=== PATIENT | male | born 1955 | race Caucasian/White ===

== ENCOUNTER 2017-04-16 18:09 | Inpatient (IN) | payer BC ==
[2017-04-16] MEDS ORDERED: Sodium Chloride 0.9% 10 ML Syringe FLUSH PRN (18:52)
[2017-04-16] MEDS: HYDROmorphone 1 MG/ML Syringe IVPUSH PRN (19:02)
[2017-04-16] MEDS: Sodium Chloride 0.9% 1,000 ML IV SCH (19:05)
--- NOTE | 2017-04-16 19:08 | EDM.PDOC ---
ED HPI GENERAL MEDICAL PROBLEM - General Chief Complaint: Abdominal Pain Stated Complaint: abdominal pain Time Seen by Provider: 04/16/17 18:30 Source of Information: Reports: Patient History Limitations: Reports: No Limitations - History of Present Illness INITIAL COMMENTS - FREE TEXT/NARRATIVE: Patient is a 61-year-old gentleman who presented to the emergency room with abdominal pain he states is about an 8 out of 10 at this time but has been complaining of abdominal pain for the last couple weeks he did go the physician on the a CAT scan was done CT of the abdomen revealed hiatal hernia seen sigmoid diverticulosis without CT evidence of inflammation or diverticulitis prostatomegaly 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 Onset: Gradual Duration: Week(s): Location: Reports: Abdomen Abdomen Pain Score (Numeric/FACES): 10 Headache Pain Score (Numeric/FACES): 2 - Related Data Allergies Allergy/AdvReac Type Severity Reaction Status Date / Time ezetimibe [From Vytorin] Allergy Muscle Verified 04/16/17 22:50 Aches simvastatin [From Vytorin] Allergy Muscle Verified 04/16/17 22:50 Aches Tetanus Vaccines and Toxoid Allergy Hives Verified 04/16/17 22:50 [Tetanus Vaccines & Toxoid] fish Allergy Intermediate Airway Uncoded 04/16/17 22:50 Tightness Home Meds: Home Meds Albuterol Sulfate [Albuterol Sulfate HFA] 8.5 gm IH Q4H PRN 07/13/14 [History] Metoprolol Succinate [Toprol Xl] 50 mg PO DAILY 07/13/14 [History] Omeprazole 20 mg PO BID 07/13/14 [History] Rizatriptan [Maxalt] 10 mg PO DAILY PRN 07/13/14 [History] Simvastatin 10 mg PO DAILY 07/13/14 [History] Valsartan [Diovan] 160 mg PO BEDTIME 07/13/14 [History] Fluticasone Propionate [Flovent] 100 mcg IH BID PRN 05/28/15 [History] Hydrocortisone Acetate [Anusol-Hc] 25 mg RECTAL ASDIRECTED PRN 05/28/15 [History ] Apixaban [Eliquis] 5 mg PO BID 04/16/17 [History] Cyanocobalamin (Vitamin B-12) [B-12] 1,000 mcg PO DAILY 04/16/17 [History] Latanoprost [Xalatan 0.005% Ophth Soln] 1 drop EYEBOTH BEDTIME 04/16/17 [History ] Hydrochlorothiazide 25 mg PO DAILY 04/17/17 [History] Moexipril [Univasc] 15 mg PO DAILY 04/17/17 [History] Ciprofloxacin HCl [Cipro] 500 mg PO BID #14 tablet 04/19/17 [Rx] Ondansetron [Zofran ODT] 4 mg PO Q6H PRN #20 tab.dis 04/19/17 [Rx] metroNIDAZOLE [Flagyl] 500 mg PO Q8H #21 tablet 04/19/17 [Rx] Past Medical History Cardiovascular History: Reports: Hypertension Respiratory History: Reports: Asthma Neurological History: Reports: Migraines Oncologic (Cancer) History: Reports: Other (See Below) Other Oncologic History: multiple myeloma3 - Infectious Disease History Infectious Disease History: Reports: Measles, Mumps, Shingles - Past Surgical History Cardiovascular Surgical History: Reports: Cardiac Ablation Other Cardiovascular Surgeries/Procedures: ablation in 2016 Oncologic Surgical History: Reports: None Social & Family History - Tobacco Use Smoking Status *Q: Never Smoker - Caffeine Use Caffeine Use: Reports: Coffee, Soda - Alcohol Use Days Per Week of Alcohol Use: 0 - Recreational Drug Use Recreational Drug Use: No ED ROS GENERAL - Review of Systems Review Of Systems: See Below Constitutional: Reports: No Symptoms HEENT: Reports: No Symptoms Respiratory: Reports: No Symptoms Cardiovascular: Reports: No Symptoms Endocrine: Reports: No Symptoms GI/Abdominal: Reports: Abdominal Pain, Nausea : Reports: No Symptoms Musculoskeletal: Reports: No Symptoms Skin: Reports: No Symptoms Neurological: Reports: No Symptoms Psychiatric: Reports: No Symptoms ED EXAM, GI/ABD - Physical Exam Exam: See Below Exam Limited By: No Limitations General Appearance: Alert, WD/WN, No Apparent Distress Eyes: Bilateral: Normal Appearance, EOMI Ears: Normal External Exam, Normal Canal, Hearing Grossly Normal, Normal TMs Nose: Normal Inspection, Normal Mucosa, No Blood Throat/Mouth: Normal Inspection, Normal Lips, Normal Teeth, Normal Gums, Normal Oropharynx, Normal Voice, No Airway Compromise Head: Atraumatic, Normocephalic Neck: Normal Inspection, Supple, Non-Tender, Full Range of Motion Respiratory/Chest: No Respiratory Distress, Lungs Clear, Normal Breath Sounds, No Accessory Muscle Use, Chest Non-Tender Cardiovascular: Normal Peripheral Pulses, Regular Rate, Rhythm, No Edema, No Gallop, No JVD, No Murmur, No Rub GI/Abdominal Exam: Normal Bowel Sounds, Soft, Tender (left lower quadrant; nausea) (Male) Exam: Deferred Rectal (Males) Exam: Deferred Back Exam: Normal Inspection Extremities: Normal Inspection Neurological: Alert, Oriented, CN II-XII Intact, Normal Cognition, Normal Gait, Normal Reflexes, No Motor/Sensory Deficits Skin Exam: Warm, Dry, Intact, Normal Color, No Rash Course - Vital Signs Last Recorded V/S: Last Vital Signs Temp 98.2 F 04/19/17 08:00 Pulse 60 04/19/17 08:00 Resp 16 04/19/17 08:00 BP 118/57 L 04/19/17 08:00 Pulse Ox 94 L 04/19/17 04:00 - Orders/Labs/Meds Orders: Medication Orders Acetaminophen (Tylenol) 650 mg PO Q3HR PRN PRN Reason: headache/fever Last Admin: 04/19/17 05:35 Dose: 650 mg Admin: 04/18/17 09:30 Dose: 650 mg Albuterol (Ventolin Hfa) 0 gm INH Q4H PRN PRN Reason: Shortness of Breath Cyanocobalamin (Vitamin B12) 1,000 mcg PO DAILY [facility] Last Admin: 04/19/17 07:52 Dose: 1,000 mcg Admin: 04/18/17 09:07 Dose: 1,000 mcg Admin: 04/17/17 07:28 Dose: 1,000 mcg Hydrochlorothiazide (Hydrochlorothiazide) 25 mg PO DAILY [facility] Last Admin: 04/19/17 07:52 Dose: 25 mg Admin: 04/18/17 09:03 Dose: 25 mg Admin: 04/17/17 09:21 Dose: Hydromorphone HCl (Dilaudid) 1 mg IVPUSH Q1H PRN PRN Reason: Abdominal Pain Last Admin: 04/19/17 01:00 Dose: 1 mg Admin: 04/18/17 22:15 Dose: 1 mg Admin: 04/18/17 04:35 Dose: 1 mg Admin: 04/17/17 18:39 Dose: 1 mg Admin: 04/17/17 04:42 Dose: 1 mg Admin: 04/16/17 19:02 Dose: 1 mg Sodium Chloride (Normal Saline) 1,000 mls @ 150 mls/hr IV ASDIRECTED [facility] Last Admin: 04/19/17 05:35 Dose: 150 mls/hr Infusion: 04/19/17 05:35 Dose: 150 mls/hr Admin: 04/18/17 23:36 Dose: 150 mls/hr Infusion: 04/18/17 22:58 Dose: 150 mls/hr Admin: 04/18/17 16:17 Dose: 150 mls/hr Infusion: 04/18/17 13:53 Dose: 150 mls/hr Admin: 04/18/17 07:12 Dose: 150 mls/hr Infusion: 04/18/17 05:31 Dose: 150 mls/hr Admin: 04/17/17 22:50 Dose: 150 mls/hr Infusion: 04/17/17 21:13 Dose: 150 mls/hr Admin: 04/17/17 14:32 Dose: 150 mls/hr Infusion: 04/17/17 11:19 Dose: 150 mls/hr Admin: 04/17/17 04:38 Dose: 150 mls/hr Infusion: 04/17/17 01:46 Dose: 150 mls/hr Admin: 04/16/17 19:05 Dose: 150 mls/hr Metronidazole 500 mg/ Premix 100 mls @ 100 mls/hr IV Q8H [facility] Last Admin: 04/19/17 05:36 Dose: 100 mls/hr Infusion: 04/18/17 22:15 Dose: 100 mls/hr Admin: 04/18/17 21:15 Dose: 100 mls/hr Infusion: 04/18/17 14:16 Dose: 100 mls/hr Admin: 04/18/17 13:16 Dose: 100 mls/hr Infusion: 04/18/17 05:32 Dose: 100 mls/hr Admin: 04/18/17 04:32 Dose: 100 mls/hr Infusion: 04/17/17 21:27 Dose: 100 mls/hr Admin: 04/17/17 20:27 Dose: 100 mls/hr Infusion: 04/17/17 13:46 Dose: 100 mls/hr Admin: 04/17/17 12:46 Dose: 100 mls/hr Infusion: 04/17/17 05:37 Dose: 100 mls/hr Admin: 04/17/17 04:37 Dose: 100 mls/hr Infusion: 04/16/17 22:58 Dose: 100 mls/hr Admin: 04/16/17 21:58 Dose: 100 mls/hr Ciprofloxacin/Dextrose 400 mg/ (Premix) 200 mls @ 200 mls/hr IV Q12HR [facility] Last Admin: 04/19/17 07:53 Dose: 200 mls/hr Infusion: 04/18/17 21:00 Dose: 200 mls/hr Admin: 04/18/17 20:00 Dose: 200 mls/hr Infusion: 04/18/17 10:08 Dose: 200 mls/hr Admin: 04/18/17 09:08 Dose: 200 mls/hr Infusion: 04/17/17 21:27 Dose: 200 mls/hr Admin: 04/17/17 20:27 Dose: 200 mls/hr Infusion: 04/17/17 08:28 Dose: 200 mls/hr Admin: 04/17/17 07:28 Dose: 200 mls/hr Infusion: 04/17/17 00:50 Dose: 200 mls/hr Admin: 04/16/17 23:50 Dose: 200 mls/hr Metoprolol Succinate (Toprol Xl) 50 mg PO DAILY [facility] Last Admin: 04/19/17 07:52 Dose: 50 mg Admin: 04/18/17 09:05 Dose: 50 mg Admin: 04/17/17 09:21 Dose: Moexipril HCl (Univasc) 15 mg PO DAILY [facility] Last Admin: 04/19/17 07:52 Dose: 15 mg Admin: 04/18/17 09:06 Dose: 15 mg Admin: 04/17/17 09:21 Dose: Mometasone Furoate (Asmanex 220 Mcg) 1 puff INH DAILY PRN PRN Reason: BREATHING Omeprazole (Omeprazole) 20 mg PO BID [facility] Last Admin: 04/19/17 07:52 Dose: 20 mg Admin: 04/18/17 17:55 Dose: 20 mg Admin: 04/18/17 09:04 Dose: 20 mg Admin: 04/17/17 17:19 Dose: 20 mg Ondansetron HCl (Zofran) 4 mg IVPUSH Q6H PRN PRN Reason: Nausea Last Admin: 04/19/17 07:53 Dose: 4 mg Simvastatin (Zocor) 10 mg PO BEDTIME [facility] Last Admin: 04/18/17 20:00 Dose: 10 mg Admin: 04/17/17 20:28 Dose: 10 mg Sodium Chloride (Saline Flush) 10 ml FLUSH ASDIRECTED PRN PRN Reason: Keep Vein Open Last Admin: 04/18/17 04:38 Dose: 10 ml Valsartan (Diovan) 160 mg PO BEDTIME [facility] Last Admin: 04/18/17 21:00 Dose: 160 mg Admin: 04/17/17 20:50 Dose: Not Given Labs: Laboratory Tests 04/16/17 04/16/17 Range/Units 19:20 19:20 WBC 15.1 H (4.0-10.2) K/uL RBC 4.54 (4.33-5.41) M/uL Hgb 14.0 D (13.1-16.8) g/dL Hct 40.7 (39.0-49.0) % MCV 89.6 (84.0-98.0) fL MCH 30.8 (28.2-33.3) pg MCHC 34.4 (31.7-36.0) g/dL RDW 13.2 (11.2-14.1) % Plt Count 227 (150-350) K/uL Neut % (Auto) 64.4 (45.0-80.0) % Lymph % (Auto) 26.8 (10.0-50.0) % [place] % (Auto) 7.5 (2.0-14.0) % Eos % (Auto) 1.0 (0.0-5.0) % Baso % (Auto) 0.3 (0.0-2.0) % Neut # (Auto) 9.75 H (1.40-7.00) K/uL Lymph # (Auto) 4.06 H (0.50-3.50) K/uL [place] # (Auto) 1.13 H (0.00-1.00) K/uL Eos # (Auto) 0.15 (0.00-0.50) K/uL Baso # (Auto) 0.05 (0.00-0.20) K/uL Sodium 132 L (136-145) mmol/L Potassium 4.2 (3.5-5.1) mmol/L Chloride 97 L (98-107) mmol/L Carbon Dioxide 25.0 (21.0-32.0) mmol/L BUN 31 H (7-18) mg/dL Creatinine 2.09 H (0.51-1.17) mg/dL Est Cr Clr Drug Dosing 36.18 mL/min Estimated GFR (MDRD) 32 mL/min Glucose 90 (74-106) mg/dL Calcium 8.6 (8.5-10.1) mg/dL Meds: Medications Generic Name Dose Route Start Last Admin Trade Name Freq PRN Reason Stop Dose Admin Acetaminophen 650 mg 04/18/17 09:19 04/19/17 05:35 Tylenol PO 650 mg Q3HR PRN Administration headache/fever Albuterol 0 gm 04/17/17 09:32 Ventolin Hfa INH Q4H PRN Shortness of Breath Cyanocobalamin 1,000 mcg 04/17/17 08:00 04/19/17 07:52 Vitamin B12 PO 1,000 mcg DAILY [facility] Administration Hydrochlorothiazide 25 mg 04/17/17 08:00 04/19/17 07:52 Hydrochlorothiazide PO 25 mg DAILY [facility] Administration Hydromorphone HCl 1 mg 04/16/17 18:54 04/19/17 01:00 Dilaudid IVPUSH 1 mg Q1H PRN Administration Abdominal Pain Sodium Chloride 1,000 mls @ 150 mls/hr 04/16/17 19:00 04/19/17 05:35 Normal Saline IV 150 mls/hr ASDIRECTED [facility] Administration Metronidazole 500 mg/ Premix 100 mls @ 100 mls/hr 04/16/17 21:15 04/19/17 05: 36 IV 100 mls/hr Q8H [facility] Administration Ciprofloxacin/Dextrose 400 mg/ 200 mls @ 200 mls/hr 04/16/17 23:30 04/19/17 07:53 Premix IV 200 mls/hr Q12HR [facility] Administration Metoprolol Succinate 50 mg 04/17/17 08:00 04/19/17 07:52 Toprol Xl PO 50 mg DAILY [facility] Administration Moexipril HCl 15 mg 04/17/17 08:00 04/19/17 07:52 Univasc PO 15 mg DAILY [facility] Administration Mometasone Furoate 1 puff 04/16/17 23:23 Asmanex 220 Mcg INH DAILY PRN BREATHING Omeprazole 20 mg 04/17/17 18:00 04/19/17 07:52 Omeprazole PO 20 mg BID [facility] Administration Ondansetron HCl 4 mg 04/19/17 07:38 04/19/17 07:53 Zofran IVPUSH 4 mg Q6H PRN Administration Nausea Simvastatin 10 mg 04/17/17 20:00 04/18/17 20:00 Zocor PO 10 mg BEDTIME [facility] Administration Sodium Chloride 10 ml 04/16/17 18:52 04/18/17 04:38 Saline Flush FLUSH 10 ml ASDIRECTED PRN Administration Keep Vein Open Valsartan 160 mg 04/17/17 20:00 04/18/17 21:00 Diovan PO 160 mg BEDTIME [facility] Administration Discontinued Medications Generic Name Dose Route Start Last Admin Trade Name Freq PRN Reason Stop Dose Admin Apixaban 5 mg 04/17/17 08:00 04/18/17 17:54 Eliquis PO Not Given BID [facility] Hydrocortisone Acetate 25 mg 04/16/17 21:52 Anucort-Hc RECTAL ASDIRECTED PRN Hemorrhoids Ciprofloxacin/Dextrose 400 mg/ 200 mls @ 200 mls/hr 04/17/17 08:00 Premix IV Q12HR [facility] Non-Formulary Medication 8.5 gm 04/16/17 21:52 Albuterol Sulfate [Albuterol Sulfate Hfa] IH Q4H PRN Shortness of Breath Non-Formulary Medication 100 mcg 04/16/17 21:52 Fluticasone Propionate [Flovent] IH BID PRN asthma Non-Formulary Medication 25 mg 04/17/17 08:00 Hydrochlorothiazide/Moexipril [Uniretic 15-12.5] PO DAILY [facility] Non-Formulary Medication 0.5 tab 04/17/17 08:00 Metoprolol Succinate [Toprol Xl] PO DAILY [facility] Non-Formulary Medication 10 mg 04/16/17 21:52 Rizatriptan [Maxalt] PO DAILY PRN Migraine Omeprazole 20 mg 04/17/17 07:30 04/17/17 07:28 Omeprazole PO 20 mg ACBRK [facility] Administration Departure - Departure Time of Disposition: 20:15 Disposition: Admitted As Inpatient 64 Clinical Impression: Abdominal pain Qualifiers: Abdominal location: left lower quadrant Qualified Code(s): R10.32 - Left lower quadrant pain Diverticulitis large intestine Qualifiers: Diverticulitis bleeding: without bleeding Diverticulitis complication: without perforation or abscess Qualified Code(s): K57.32 - Diverticulitis of large intestine without perforation or abscess without bleeding - Discharge Information - Problem List & Annotations (1) Abdominal pain SNOMED Code(s): 89336260 Code(s): R10.9 - UNSPECIFIED ABDOMINAL PAIN Status: Acute Current Visit: Yes Qualifiers: Abdominal location: left lower quadrant Qualified Code(s): R10.32 - Left lower quadrant pain (2) Colitis, infectious SNOMED Code(s): 88189190 Code(s): A09 - INFECTIOUS GASTROENTERITIS AND COLITIS, UNSPECIFIED Status: Acute Priority: High Current Visit: Yes Onset Date: ~04/07/17 - Problem List Review Problem List Initiated/Reviewed/Updated: Yes - Assessment/Plan Admission H&P: Please use this note as an admission H&P
[2017-04-16] MEDS ORDERED: FLUTICASONE PROPIONATE 100 MCG IH PRN (21:52)
[2017-04-16] MEDS ORDERED: ALBUTEROL SULFATE IH PRN (21:52)
[2017-04-16] MEDS ORDERED: Hydrocortisone Acetate 25 MG Supp RECTAL PRN (21:52)
[2017-04-16] MEDS ORDERED: RIZATRIPTAN 10 MG PO PRN (21:52)
[2017-04-16] MEDS: metroNIDAZOLE/Normal Saline 500 MG in Premix Bag 1 BAG IV SCH (21:58)
[2017-04-16] MEDS ORDERED: Mometasone Furoate Powder 220 MCG/Puff 14 Dose Inhaler INH PRN (23:23)
[2017-04-16] MEDS: Ciprofloxacin in D5W 400 MG in Premix Bag 1 BAG IV SCH ×2 (23:50)
[2017-04-17] MEDS: metroNIDAZOLE/Normal Saline 500 MG in Premix Bag 1 BAG IV SCH ×3 (04:37→20:27)
[2017-04-17] MEDS: Sodium Chloride 0.9% 1,000 ML IV SCH ×3 (04:38→22:50)
[2017-04-17] MEDS: HYDROmorphone 1 MG/ML Syringe IVPUSH PRN ×2 (04:42→18:39)
[2017-04-17] MEDS: Apixaban 5 MG Tab PO SCH ×2 (07:28→17:19)
[2017-04-17] MEDS: Ciprofloxacin in D5W 400 MG in Premix Bag 1 BAG IV SCH ×4 (07:28→20:27)
[2017-04-17] MEDS: Cyanocobalamin (Vitamin B12) 1,000 MCG Tab PO SCH (07:28)
[2017-04-17] MEDS ORDERED: Omeprazole 20 MG Cap.CR PO SCH (07:30)
[2017-04-17] MEDS ORDERED: MOEXIPRIL PO SCH (08:00)
[2017-04-17] MEDS ORDERED: Ciprofloxacin in D5W 400 MG in Premix Bag 1 BAG IV SCH ×2 (08:00)
[2017-04-17] MEDS ORDERED: HYDROCHLOROTHIAZIDE PO SCH (08:00)
[2017-04-17] MEDS ORDERED: METOPROLOL SUCCINATE PO SCH (08:00)
[2017-04-17] MEDS ORDERED: [UNRECOGNIZED DRUG - OTHER] PO SCH (08:00)
--- NOTE | 2017-04-17 09:10 | PCM.PN ---
- General Info Date of Service: 04/17/17 Admission Dx/Problem (Free Text): diverticulitis Functional Status: Reports: pain controlled - Review of Systems General: Reports: No Symptoms HEENT: Reports: no symptoms Pulmonary: Reports: no symptoms Cardiovascular: Reports: No Symptoms Gastrointestinal: Reports: Abdominal pain Genitourinary: Reports: no symptoms Musculoskeletal: Reports: no symptoms Skin: Reports: no symptoms Neurological: Reports: No Symptoms Psychiatric: Reports: no symptoms - Patient Data Vitals - most recent: Last Vital Signs Temp 97.3 F 04/17/17 07:50 Pulse 61 04/17/17 07:50 Resp 20 04/17/17 07:50 BP 102/53 L 04/17/17 07:50 Pulse Ox 98 04/17/17 07:50 Weight - most recent: 197 lb 14.4 oz I&O - last 24 hours: Intake & Output 04/16/17 04/17/17 04/17/17 22:59 06:59 14:59 Intake Total 1000 785 Output Total 350 Balance 1000 435 Lab Results last 24 hrs: Laboratory Results - last 24 hr 04/17/17 04/17/17 Range/Units 06:35 06:35 WBC 9.7 (4.0-10.2) K/uL RBC 4.04 L (4.33-5.41) M/uL Hgb 12.7 L (13.1-16.8) g/dL Hct 36.5 L (39.0-49.0) % MCV 90.3 (84.0-98.0) fL MCH 31.4 (28.2-33.3) pg MCHC 34.8 (31.7-36.0) g/dL RDW 13.1 (11.2-14.1) % Plt Count 221 (150-350) K/uL Neut % (Auto) 58.6 (45.0-80.0) % Lymph % (Auto) 30.6 (10.0-50.0) % [place] % (Auto) 7.0 (2.0-14.0) % Eos % (Auto) 3.2 (0.0-5.0) % Baso % (Auto) 0.6 (0.0-2.0) % Neut # (Auto) 5.67 (1.40-7.00) K/uL Lymph # (Auto) 2.96 (0.50-3.50) K/uL [place] # (Auto) 0.68 (0.00-1.00) K/uL Eos # (Auto) 0.31 (0.00-0.50) K/uL Baso # (Auto) 0.06 (0.00-0.20) K/uL Sodium 135 L (136-145) mmol/L Potassium 4.2 (3.5-5.1) mmol/L Chloride 102 (98-107) mmol/L Carbon Dioxide 25.5 (21.0-32.0) mmol/L BUN 30 H (7-18) mg/dL Creatinine 1.54 H (0.51-1.17) mg/dL Est Cr Clr Drug Dosing 49.10 mL/min Estimated GFR (MDRD) 46 mL/min Glucose 82 (74-106) mg/dL Calcium 8.1 L (8.5-10.1) mg/dL Med Orders - Current: Current Medications Apixaban (Eliquis) 5 mg PO BID [facility] Last Admin: 04/17/17 07:28 Dose: 5 mg Cyanocobalamin (Vitamin B12) 1,000 mcg PO DAILY [facility] Last Admin: 04/17/17 07:28 Dose: 1,000 mcg Hydrochlorothiazide (Hydrochlorothiazide) 25 mg PO DAILY [facility] Hydrocortisone Acetate (Anucort-Hc) 25 mg RECTAL ASDIRECTED PRN PRN Reason: Hemorrhoids Hydromorphone HCl (Dilaudid) 1 mg IVPUSH Q1H PRN PRN Reason: Abdominal Pain Last Admin: 04/17/17 04:42 Dose: 1 mg Sodium Chloride (Normal Saline) 1,000 mls @ 150 mls/hr IV ASDIRECTED [facility] Last Admin: 04/17/17 04:38 Dose: 150 mls/hr Metronidazole 500 mg/ Premix 100 mls @ 100 mls/hr IV Q8H [facility] Last Admin: 04/17/17 04:37 Dose: 100 mls/hr Ciprofloxacin/Dextrose 400 mg/ (Premix) 200 mls @ 200 mls/hr IV Q12HR [facility] Last Admin: 04/17/17 07:28 Dose: 200 mls/hr Metoprolol Succinate (Toprol Xl) 50 mg PO DAILY [facility] Moexipril HCl (Univasc) 15 mg PO DAILY [facility] Mometasone Furoate (Asmanex 220 Mcg) 1 puff INH DAILY PRN PRN Reason: BREATHING Non-Formulary Medication (Albuterol Sulfate [Albuterol Sulfate Hfa]) 8.5 gm IH Q4H PRN PRN Reason: Shortness of Breath Non-Formulary Medication (Rizatriptan [Maxalt]) 10 mg PO DAILY PRN PRN Reason: Migraine Omeprazole (Omeprazole) 20 mg PO ACBRK [facility] Last Admin: 04/17/17 07:28 Dose: 20 mg Simvastatin (Zocor) 10 mg PO BEDTIME [facility] Sodium Chloride (Saline Flush) 10 ml FLUSH ASDIRECTED PRN PRN Reason: Keep Vein Open Valsartan (Diovan) 160 mg PO BEDTIME [facility] Discontinued Medications Ciprofloxacin/Dextrose 400 mg/ (Premix) 200 mls @ 200 mls/hr IV Q12HR [facility] Non-Formulary Medication (Fluticasone Propionate [Flovent]) 100 mcg IH BID PRN PRN Reason: asthma Non-Formulary Medication (Hydrochlorothiazide/Moexipril [Uniretic 15-12.5]) 25 mg PO DAILY [facility] Non-Formulary Medication (Metoprolol Succinate [Toprol Xl]) 0.5 tab PO DAILY [facility] - Exam General: alert, oriented HEENT: Pupils equal, Pupils reactive, EOMI, Mucous membr. moist/pink Neck: supple Lungs: Clear to auscultation, Normal respiratory effort Cardiovascular: Regular Rate, Regular Rhythm Abdomen: soft, tenderness, abnormal bowel sounds (Male) Exam: No Hernia, Normal Inspection, Normal Prostate, Circumcised Back Exam: Normal Inspection, Full Range of Motion Extremities: no edema Skin: warm, dry, intact Wound/Incisions: healing well Neurological: no new focal deficit Psy/Mental Status: alert, normal affect, normal mood - Problem List & Annotations (1) Diverticulitis large intestine SNOMED Code(s): 6203387 Code(s): K57.32 - DVTRCLI OF LG INT W/O PERFORATION OR ABSCESS W/O BLEEDING Status: Acute Current Visit: Yes - Problem List Review Problem List Initiated/Reviewed/Updated: Yes - My Orders Last 24 Hours: My Active Orders 04/16/17 21:00 Patient Status [ADT] Routine Vital Signs [RC] Q4HR DVT/VTE Prophylaxis Reflex [OM.PC] Routine 04/16/17 21:06 Pulse Oximetry [RC] PRN 04/16/17 21:09 Antiembolic Devices [RC] 08,20 VTE/DVT Education [RC] PER UNIT ROUTINE 04/16/17 21:15 metroNIDAZOLE/Normal Saline [Flagyl 500 MG in NS 100 ML] 500 mg Premix Bag 1 bag IV Q8H 04/16/17 21:52 Albuterol Sulfate [Albuterol Sulfate HFA] 8.5 gm IH Q4H PRN Hydrocortisone Acetate [Anucort-HC] 25 mg RECTAL ASDIRECTED PRN Rizatriptan [Maxalt] 10 mg PO DAILY PRN 04/16/17 23:23 Mometasone Furoate [Asmanex 220 MCG] 1 puff INH DAILY PRN 04/16/17 23:30 Ciprofloxacin in D5W [Cipro in D5W 400 MG/200 ML] 400 mg Premix Bag 1 bag IV Q12HR 04/16/17 Dinner Full Liquid Diet [DIET] 04/17/17 07:30 Omeprazole 20 mg PO ACBRK 04/17/17 08:00 Apixaban [Eliquis] 5 mg PO BID Cyanocobalamin (Vitamin B12) [Vitamin B12] 1,000 mcg PO DAILY Hydrochlorothiazide 25 mg PO DAILY Metoprolol Succinate [Toprol XL] 50 mg PO DAILY Moexipril [Univasc] 15 mg PO DAILY 04/17/17 20:00 Simvastatin [Zocor] 10 mg PO BEDTIME Valsartan [Diovan] 160 mg PO BEDTIME - Assessment Assessment:: dehydration acute renal insufficency - Plan Plan:: continue with antibiotic treatment as odered.
[2017-04-17] MEDS: Hydrochlorothiazide 25 MG Tab PO SCH (09:21)
[2017-04-17] MEDS: Metoprolol Succinate 50 MG Tab.ER PO SCH (09:21)
[2017-04-17] MEDS: Moexipril 7.5 MG Tab PO SCH (09:21)
[2017-04-17] MEDS ORDERED: Albuterol 8 GM Inhaler INH PRN (09:32)
[2017-04-17] MEDS: Omeprazole 20 MG Cap.CR PO SCH (17:19)
[2017-04-17] MEDS: Simvastatin 10 MG Tab PO SCH (20:28)
[2017-04-18] MEDS: metroNIDAZOLE/Normal Saline 500 MG in Premix Bag 1 BAG IV SCH ×3 (04:32→21:15)
[2017-04-18] MEDS: HYDROmorphone 1 MG/ML Syringe IVPUSH PRN ×2 (04:35→22:15)
[2017-04-18] MEDS: Sodium Chloride 0.9% 1,000 ML IV SCH ×3 (07:12→23:36)
[2017-04-18] MEDS: Apixaban 5 MG Tab PO SCH ×2 (09:02→17:54)
[2017-04-18] MEDS: Hydrochlorothiazide 25 MG Tab PO SCH (09:03)
[2017-04-18] MEDS: Omeprazole 20 MG Cap.CR PO SCH ×2 (09:04→17:55)
[2017-04-18] MEDS: Metoprolol Succinate 50 MG Tab.ER PO SCH (09:05)
[2017-04-18] MEDS: Moexipril 7.5 MG Tab PO SCH (09:06)
[2017-04-18] MEDS: Cyanocobalamin (Vitamin B12) 1,000 MCG Tab PO SCH (09:07)
[2017-04-18] MEDS: Ciprofloxacin in D5W 400 MG in Premix Bag 1 BAG IV SCH ×4 (09:08→20:00)
[2017-04-18] MEDS: Acetaminophen 325 MG Tab PO PRN (09:30)
[2017-04-18] MEDS: Simvastatin 10 MG Tab PO SCH (20:00)
[2017-04-19] MEDS: HYDROmorphone 1 MG/ML Syringe IVPUSH PRN (01:00)
[2017-04-19] MEDS: Acetaminophen 325 MG Tab PO PRN (05:35)
[2017-04-19] MEDS: Sodium Chloride 0.9% 1,000 ML IV SCH (05:35)
[2017-04-19] MEDS: metroNIDAZOLE/Normal Saline 500 MG in Premix Bag 1 BAG IV SCH (05:36)
[2017-04-19] MEDS ORDERED: Ondansetron 4 MG/2 ML SDV IVPUSH PRN (07:38)
[2017-04-19] MEDS: Hydrochlorothiazide 25 MG Tab PO SCH (07:52)
[2017-04-19] MEDS: Metoprolol Succinate 50 MG Tab.ER PO SCH (07:52)
[2017-04-19] MEDS: Cyanocobalamin (Vitamin B12) 1,000 MCG Tab PO SCH (07:52)
[2017-04-19] MEDS: Omeprazole 20 MG Cap.CR PO SCH (07:52)
[2017-04-19] MEDS: Moexipril 7.5 MG Tab PO SCH (07:52)
[2017-04-19] MEDS: Ciprofloxacin in D5W 400 MG in Premix Bag 1 BAG IV SCH ×2 (07:53)
[2017-04-19 07:54] VITALS: BP 118/57
[2017-04-19 08:04] LABS: CHLORIDE,CL 107 mmol/L (98-107); SODIUM,NA 139 mmol/L (136-145)
--- NOTE | 2017-04-19 09:45 | PCM.DCSUM1 ---
Discharge Summary - Discharge Data Discharge Disposition: Home, Self-Care 01 Condition: Good - Discharge Diagnosis/Problem(s) (1) Diverticulitis large intestine SNOMED Code(s): 3530882 ICD Code: K57.32 - DVTRCLI OF LG INT W/O PERFORATION OR ABSCESS W/O BLEEDING Status: Acute Current Visit: Yes - Discharge Plan Home Medications: Home Meds Albuterol Sulfate [Albuterol Sulfate HFA] 8.5 gm IH Q4H PRN 07/13/14 [History] Metoprolol Succinate [Toprol Xl] 50 mg PO DAILY 07/13/14 [History] Omeprazole [Omeprazole] 20 mg PO BID 07/13/14 [History] Rizatriptan [Maxalt] 10 mg PO DAILY PRN 07/13/14 [History] Simvastatin [Simvastatin] 10 mg PO DAILY 07/13/14 [History] Valsartan [Diovan] 160 mg PO BEDTIME 07/13/14 [History] Fluticasone Propionate [Flovent Diskus] 100 mcg IH BID PRN 05/28/15 [History] Hydrocortisone Acetate [Anusol-Hc] 25 mg RECTAL ASDIRECTED PRN 05/28/15 [History ] Apixaban [Eliquis] 5 mg PO BID 04/16/17 [History] Cyanocobalamin (Vitamin B-12) [B-12] 1,000 mcg PO DAILY 04/16/17 [History] Latanoprost [Xalatan 0.005% Ophth Soln] 1 drop EYEBOTH BEDTIME 04/16/17 [History ] Hydrochlorothiazide 25 mg PO DAILY 04/17/17 [History] Moexipril [Univasc] 15 mg PO DAILY 04/17/17 [History] Patient Handouts: Diverticulosis, Metronidazole injection, Ciprofloxacin injection Forms: ED Department Discharge Referrals: PCP,None [Ordering Only Provider] - - Patient Data Vitals - Most Recent: Last Vital Signs Temp 98.2 F 04/19/17 08:00 Pulse 60 04/19/17 08:00 Resp 16 04/19/17 08:00 BP 118/57 L 04/19/17 08:00 Pulse Ox 94 L 04/19/17 04:00 Weight - Most Recent: 197 lb 14.402 oz I&O - Last 24 hours: Intake & Output 04/18/17 04/19/17 04/19/17 22:59 06:59 14:59 Intake Total 1498 Balance 1498 Lab Results - Last 24 hrs: Laboratory Results - last 24 hr 04/19/17 Range/Units 06:56 Sodium 139 (136-145) mmol/L Potassium 4.0 (3.5-5.1) mmol/L Chloride 107 (98-107) mmol/L Carbon Dioxide 26.8 (21.0-32.0) mmol/L BUN 17 (7-18) mg/dL Creatinine 1.17 (0.51-1.17) mg/dL Est Cr Clr Drug Dosing 64.41 mL/min Estimated GFR (MDRD) > 60 mL/min Glucose 87 (74-106) mg/dL Calcium 8.6 (8.5-10.1) mg/dL Med Orders - Current: Current Medications Acetaminophen (Tylenol) 650 mg PO Q3HR PRN PRN Reason: headache/fever Last Admin: 04/19/17 05:35 Dose: 650 mg Albuterol (Ventolin Hfa) 0 gm INH Q4H PRN PRN Reason: Shortness of Breath Cyanocobalamin (Vitamin B12) 1,000 mcg PO DAILY [facility] Last Admin: 04/19/17 07:52 Dose: 1,000 mcg Hydrochlorothiazide (Hydrochlorothiazide) 25 mg PO DAILY [facility] Last Admin: 04/19/17 07:52 Dose: 25 mg Hydromorphone HCl (Dilaudid) 1 mg IVPUSH Q1H PRN PRN Reason: Abdominal Pain Last Admin: 04/19/17 01:00 Dose: 1 mg Sodium Chloride (Normal Saline) 1,000 mls @ 150 mls/hr IV ASDIRECTED [facility] Last Admin: 04/19/17 05:35 Dose: 150 mls/hr Metronidazole 500 mg/ Premix 100 mls @ 100 mls/hr IV Q8H [facility] Last Admin: 04/19/17 05:36 Dose: 100 mls/hr Ciprofloxacin/Dextrose 400 mg/ (Premix) 200 mls @ 200 mls/hr IV Q12HR [facility] Last Admin: 04/19/17 07:53 Dose: 200 mls/hr Metoprolol Succinate (Toprol Xl) 50 mg PO DAILY [facility] Last Admin: 04/19/17 07:52 Dose: 50 mg Moexipril HCl (Univasc) 15 mg PO DAILY [facility] Last Admin: 04/19/17 07:52 Dose: 15 mg Mometasone Furoate (Asmanex 220 Mcg) 1 puff INH DAILY PRN PRN Reason: BREATHING Omeprazole (Omeprazole) 20 mg PO BID [facility] Last Admin: 04/19/17 07:52 Dose: 20 mg Ondansetron HCl (Zofran) 4 mg IVPUSH Q6H PRN PRN Reason: Nausea Last Admin: 04/19/17 07:53 Dose: 4 mg Simvastatin (Zocor) 10 mg PO BEDTIME [facility] Last Admin: 04/18/17 20:00 Dose: 10 mg Sodium Chloride (Saline Flush) 10 ml FLUSH ASDIRECTED PRN PRN Reason: Keep Vein Open Last Admin: 04/18/17 04:38 Dose: 10 ml Valsartan (Diovan) 160 mg PO BEDTIME [facility] Last Admin: 04/18/17 21:00 Dose: 160 mg Discontinued Medications Apixaban (Eliquis) 5 mg PO BID [facility] Last Admin: 04/18/17 17:54 Dose: Not Given Hydrocortisone Acetate (Anucort-Hc) 25 mg RECTAL ASDIRECTED PRN PRN Reason: Hemorrhoids Ciprofloxacin/Dextrose 400 mg/ (Premix) 200 mls @ 200 mls/hr IV Q12HR [facility] Non-Formulary Medication (Albuterol Sulfate [Albuterol Sulfate Hfa]) 8.5 gm IH Q4H PRN PRN Reason: Shortness of Breath Non-Formulary Medication (Fluticasone Propionate [Flovent]) 100 mcg IH BID PRN PRN Reason: asthma Non-Formulary Medication (Hydrochlorothiazide/Moexipril [Uniretic 15-12.5]) 25 mg PO DAILY [facility] Non-Formulary Medication (Metoprolol Succinate [Toprol Xl]) 0.5 tab PO DAILY [facility] Non-Formulary Medication (Rizatriptan [Maxalt]) 10 mg PO DAILY PRN PRN Reason: Migraine Omeprazole (Omeprazole) 20 mg PO ACBRK [facility] Last Admin: 04/17/17 07:28 Dose: 20 mg *Q Meaningful Use (DIS) - VTE *Q VTE Criteria *Q: - Stroke *Q Stroke Criteria *Q: - AMI *Q AMI Criteria *Q:
--- NOTE | 2017-04-19 09:55 | PCM.DCSUM1 ---
Discharge Summary - Hospital Course Free Text/Narrative:: Pt. is a 61 y/o male admitted to hospital with infectious colitis left lower quadrant pain started on antibiotic Pt . improved now ready to go home . - Discharge Data Discharge Date: 04/19/17 Discharge Disposition: Home, Self-Care 01 Condition: Good - Discharge Diagnosis/Problem(s) (1) Diverticulitis large intestine SNOMED Code(s): 7841361 ICD Code: K57.32 - DVTRCLI OF LG INT W/O PERFORATION OR ABSCESS W/O BLEEDING Status: Acute Current Visit: Yes Qualifiers: Diverticulitis bleeding: without bleeding Diverticulitis complication: without perforation or abscess Qualified Code(s): K57.32 - Diverticulitis of large intestine without perforation or abscess without bleeding (2) Colitis, infectious SNOMED Code(s): 03422349 ICD Code: A09 - INFECTIOUS GASTROENTERITIS AND COLITIS, UNSPECIFIED Status : Acute Priority: High Current Visit: Yes Onset Date: ~04/07/17 - Patient Summary/Data Recommended Follow-up Testing/Procedures: colonoscopy 04/21/17. Hospital Course: pt. did better improved afible did develop nausea will sent home on oral antibiotic. - Patient Instructions Diet: Heart Healthy Diet Activity: As Tolerated Driving: May Drive Today Showering/Bathing: May Shower Notify Provider of: Fever, Increased Pain, Nausea and/or Vomiting Other/Special Instructions: Follow up with PCP in 10 days for post hospitalization follow up. - Discharge Plan Prescriptions/Med Rec: Ciprofloxacin HCl [Cipro] 500 mg PO BID #14 tablet Ondansetron [Zofran ODT] 4 mg PO Q6H PRN #20 tab.dis PRN Reason: Nausea metroNIDAZOLE [Flagyl] 500 mg PO Q8H #21 tablet Home Medications: Home Meds Albuterol Sulfate [Albuterol Sulfate HFA] 8.5 gm IH Q4H PRN 07/13/14 [History] Metoprolol Succinate [Toprol Xl] 50 mg PO DAILY 07/13/14 [History] Omeprazole 20 mg PO BID 07/13/14 [History] Rizatriptan [Maxalt] 10 mg PO DAILY PRN 07/13/14 [History] Simvastatin 10 mg PO DAILY 07/13/14 [History] Valsartan [Diovan] 160 mg PO BEDTIME 07/13/14 [History] Fluticasone Propionate [Flovent] 100 mcg IH BID PRN 05/28/15 [History] Hydrocortisone Acetate [Anusol-Hc] 25 mg RECTAL ASDIRECTED PRN 05/28/15 [History ] Apixaban [Eliquis] 5 mg PO BID 04/16/17 [History] Cyanocobalamin (Vitamin B-12) [B-12] 1,000 mcg PO DAILY 04/16/17 [History] Latanoprost [Xalatan 0.005% Ophth Soln] 1 drop EYEBOTH BEDTIME 04/16/17 [History ] Hydrochlorothiazide 25 mg PO DAILY 04/17/17 [History] Moexipril [Univasc] 15 mg PO DAILY 04/17/17 [History] Ciprofloxacin HCl [Cipro] 500 mg PO BID #14 tablet 04/19/17 [Rx] Ondansetron [Zofran ODT] 4 mg PO Q6H PRN #20 tab.dis 04/19/17 [Rx] metroNIDAZOLE [Flagyl] 500 mg PO Q8H #21 tablet 04/19/17 [Rx] Patient Handouts: Diverticulosis, Metronidazole injection, Ciprofloxacin injection Forms: ED Department Discharge Referrals: PCP,None [Ordering Only Provider] - - General Info Date of Service: 04/19/17 Functional Status: Reports: pain controlled, tolerating diet, ambulating - Review of Systems General: Reports: Other (slight discomfort left lower quadrant, but improving) HEENT: Reports: no symptoms Pulmonary: Reports: no symptoms Cardiovascular: Reports: No Symptoms Gastrointestinal: Reports: Abdominal pain (left lower quadrant discomfort but improving), Nausea Genitourinary: Reports: no symptoms Musculoskeletal: Reports: no symptoms Skin: Reports: no symptoms Neurological: Reports: No Symptoms - Patient Data Vitals - Most Recent: Last Vital Signs Temp 98.2 F 04/19/17 08:00 Pulse 60 04/19/17 08:00 Resp 16 04/19/17 08:00 BP 118/57 L 04/19/17 08:00 Pulse Ox 94 L 04/19/17 04:00 Weight - Most Recent: 197 lb 14.402 oz I&O - Last 24 hours: Intake & Output 04/18/17 04/19/17 04/19/17 22:59 06:59 14:59 Intake Total 1498 Balance 1498 Lab Results - Last 24 hrs: Laboratory Results - last 24 hr 04/19/17 Range/Units 06:56 Sodium 139 (136-145) mmol/L Potassium 4.0 (3.5-5.1) mmol/L Chloride 107 (98-107) mmol/L Carbon Dioxide 26.8 (21.0-32.0) mmol/L BUN 17 (7-18) mg/dL Creatinine 1.17 (0.51-1.17) mg/dL Est Cr Clr Drug Dosing 64.41 mL/min Estimated GFR (MDRD) > 60 mL/min Glucose 87 (74-106) mg/dL Calcium 8.6 (8.5-10.1) mg/dL Med Orders - Current: Current Medications Acetaminophen (Tylenol) 650 mg PO Q3HR PRN PRN Reason: headache/fever Last Admin: 04/19/17 05:35 Dose: 650 mg Albuterol (Ventolin Hfa) 0 gm INH Q4H PRN PRN Reason: Shortness of Breath Cyanocobalamin (Vitamin B12) 1,000 mcg PO DAILY [facility] Last Admin: 04/19/17 07:52 Dose: 1,000 mcg Hydrochlorothiazide (Hydrochlorothiazide) 25 mg PO DAILY [facility] Last Admin: 04/19/17 07:52 Dose: 25 mg Hydromorphone HCl (Dilaudid) 1 mg IVPUSH Q1H PRN PRN Reason: Abdominal Pain Last Admin: 04/19/17 01:00 Dose: 1 mg Sodium Chloride (Normal Saline) 1,000 mls @ 150 mls/hr IV ASDIRECTED [facility] Last Admin: 04/19/17 05:35 Dose: 150 mls/hr Metronidazole 500 mg/ Premix 100 mls @ 100 mls/hr IV Q8H [facility] Last Admin: 04/19/17 05:36 Dose: 100 mls/hr Ciprofloxacin/Dextrose 400 mg/ (Premix) 200 mls @ 200 mls/hr IV Q12HR [facility] Last Admin: 04/19/17 07:53 Dose: 200 mls/hr Metoprolol Succinate (Toprol Xl) 50 mg PO DAILY [facility] Last Admin: 04/19/17 07:52 Dose: 50 mg Moexipril HCl (Univasc) 15 mg PO DAILY [facility] Last Admin: 04/19/17 07:52 Dose: 15 mg Mometasone Furoate (Asmanex 220 Mcg) 1 puff INH DAILY PRN PRN Reason: BREATHING Omeprazole (Omeprazole) 20 mg PO BID [facility] Last Admin: 04/19/17 07:52 Dose: 20 mg Ondansetron HCl (Zofran) 4 mg IVPUSH Q6H PRN PRN Reason: Nausea Last Admin: 04/19/17 07:53 Dose: 4 mg Simvastatin (Zocor) 10 mg PO BEDTIME [facility] Last Admin: 04/18/17 20:00 Dose: 10 mg Sodium Chloride (Saline Flush) 10 ml FLUSH ASDIRECTED PRN PRN Reason: Keep Vein Open Last Admin: 04/18/17 04:38 Dose: 10 ml Valsartan (Diovan) 160 mg PO BEDTIME [facility] Last Admin: 04/18/17 21:00 Dose: 160 mg Discontinued Medications Apixaban (Eliquis) 5 mg PO BID [facility] Last Admin: 04/18/17 17:54 Dose: Not Given Hydrocortisone Acetate (Anucort-Hc) 25 mg RECTAL ASDIRECTED PRN PRN Reason: Hemorrhoids Ciprofloxacin/Dextrose 400 mg/ (Premix) 200 mls @ 200 mls/hr IV Q12HR [facility] Non-Formulary Medication (Albuterol Sulfate [Albuterol Sulfate Hfa]) 8.5 gm IH Q4H PRN PRN Reason: Shortness of Breath Non-Formulary Medication (Fluticasone Propionate [Flovent]) 100 mcg IH BID PRN PRN Reason: asthma Non-Formulary Medication (Hydrochlorothiazide/Moexipril [Uniretic 15-12.5]) 25 mg PO DAILY [facility] Non-Formulary Medication (Metoprolol Succinate [Toprol Xl]) 0.5 tab PO DAILY [facility] Non-Formulary Medication (Rizatriptan [Maxalt]) 10 mg PO DAILY PRN PRN Reason: Migraine Omeprazole (Omeprazole) 20 mg PO ACBRK [facility] Last Admin: 04/17/17 07:28 Dose: 20 mg - Exam General: Reports: alert, oriented HEENT: Reports: Pupils equal, Pupils reactive, EOMI, Mucous membr. moist/pink Neck: Reports: supple Lungs: Reports: Clear to auscultation, Normal respiratory effort Cardiovascular: Reports: Regular Rate, Regular Rhythm Abdomen: Reports: bowel sounds present, soft, no distension, tenderness (mild; left lower quadrant) (Male) Exam: Deferred Rectal (Males) Exam: Deferred Extremities: Reports: no edema, normal pulses Skin: Reports: warm, dry, intact Neurological: Reports: no new focal deficit Psy/Mental Status: Reports: alert, normal affect, normal mood *Q Meaningful Use (DIS) - VTE *Q VTE Criteria *Q: - Stroke *Q Stroke Criteria *Q: - AMI *Q AMI Criteria *Q:
--- NOTE | 2017-04-20 11:24 | PCM.PN ---
- General Info Date of Service: 04/18/17 - Review of Systems General: Reports: No Symptoms HEENT: Reports: no symptoms Pulmonary: Reports: no symptoms Cardiovascular: Reports: No Symptoms Gastrointestinal: Reports: Abdominal Pain (left lower quadrant; improving ) Genitourinary: Reports: no symptoms Musculoskeletal: Reports: no symptoms Skin: Reports: no symptoms Neurological: Reports: No Symptoms - Patient Data Vitals - most recent: Last Vital Signs Temp 98.2 F 04/19/17 08:00 Pulse 60 04/19/17 08:00 Resp 16 04/19/17 08:00 BP 118/57 L 04/19/17 08:00 Pulse Ox 94 L 04/19/17 04:00 Weight - most recent: 197 lb 14.402 oz Med Orders - Current: Current Medications Discontinued Medications Acetaminophen (Tylenol) 650 mg PO Q3HR PRN PRN Reason: headache/fever Last Admin: 04/19/17 05:35 Dose: 650 mg Albuterol (Ventolin Hfa) 0 gm INH Q4H PRN PRN Reason: Shortness of Breath Apixaban (Eliquis) 5 mg PO BID [facility] Last Admin: 04/18/17 17:54 Dose: Not Given Cyanocobalamin (Vitamin B12) 1,000 mcg PO DAILY [facility] Last Admin: 04/19/17 07:52 Dose: 1,000 mcg Hydrochlorothiazide (Hydrochlorothiazide) 25 mg PO DAILY [facility] Last Admin: 04/19/17 07:52 Dose: 25 mg Hydrocortisone Acetate (Anucort-Hc) 25 mg RECTAL ASDIRECTED PRN PRN Reason: Hemorrhoids Hydromorphone HCl (Dilaudid) 1 mg IVPUSH Q1H PRN PRN Reason: Abdominal Pain Last Admin: 04/19/17 01:00 Dose: 1 mg Sodium Chloride (Normal Saline) 1,000 mls @ 150 mls/hr IV ASDIRECTED [facility] Last Admin: 04/19/17 05:35 Dose: 150 mls/hr Ciprofloxacin/Dextrose 400 mg/ (Premix) 200 mls @ 200 mls/hr IV Q12HR [facility] Metronidazole 500 mg/ Premix 100 mls @ 100 mls/hr IV Q8H [facility] Last Admin: 04/19/17 05:36 Dose: 100 mls/hr Ciprofloxacin/Dextrose 400 mg/ (Premix) 200 mls @ 200 mls/hr IV Q12HR [facility] Last Admin: 04/19/17 07:53 Dose: 200 mls/hr Metoprolol Succinate (Toprol Xl) 50 mg PO DAILY [facility] Last Admin: 04/19/17 07:52 Dose: 50 mg Moexipril HCl (Univasc) 15 mg PO DAILY [facility] Last Admin: 04/19/17 07:52 Dose: 15 mg Mometasone Furoate (Asmanex 220 Mcg) 1 puff INH DAILY PRN PRN Reason: BREATHING Non-Formulary Medication (Albuterol Sulfate [Albuterol Sulfate Hfa]) 8.5 gm IH Q4H PRN PRN Reason: Shortness of Breath Non-Formulary Medication (Fluticasone Propionate [Flovent]) 100 mcg IH BID PRN PRN Reason: asthma Non-Formulary Medication (Hydrochlorothiazide/Moexipril [Uniretic 15-12.5]) 25 mg PO DAILY [facility] Non-Formulary Medication (Metoprolol Succinate [Toprol Xl]) 0.5 tab PO DAILY [facility] Non-Formulary Medication (Rizatriptan [Maxalt]) 10 mg PO DAILY PRN PRN Reason: Migraine Omeprazole (Omeprazole) 20 mg PO ACBRK [facility] Last Admin: 04/17/17 07:28 Dose: 20 mg Omeprazole (Omeprazole) 20 mg PO BID [facility] Last Admin: 04/19/17 07:52 Dose: 20 mg Ondansetron HCl (Zofran) 4 mg IVPUSH Q6H PRN PRN Reason: Nausea Last Admin: 04/19/17 07:53 Dose: 4 mg Simvastatin (Zocor) 10 mg PO BEDTIME [facility] Last Admin: 04/18/17 20:00 Dose: 10 mg Sodium Chloride (Saline Flush) 10 ml FLUSH ASDIRECTED PRN PRN Reason: Keep Vein Open Last Admin: 04/18/17 04:38 Dose: 10 ml Valsartan (Diovan) 160 mg PO BEDTIME [facility] Last Admin: 04/18/17 21:00 Dose: 160 mg - Exam General: alert, oriented HEENT: Pupils equal, Pupils reactive, EOMI, Mucous membr. moist/pink Neck: supple Lungs: Clear to auscultation, Normal respiratory effort Cardiovascular: Regular Rate, Regular Rhythm GI/Abdominal Exam: Tender (left lower quadrant ) (Male) Exam: Deferred Extremities: Normal Inspection, Normal Range of Motion, Non-Tender, No Pedal Edema, Normal Capillary Refill Skin: warm, dry, intact Neurological: no new focal deficit Psy/Mental Status: alert, normal affect, normal mood - Problem List & Annotations (1) Abdominal pain SNOMED Code(s): 69479837 Code(s): R10.9 - UNSPECIFIED ABDOMINAL PAIN Status: Acute Qualifiers: Abdominal location: left lower quadrant Qualified Code(s): R10.32 - Left lower quadrant pain (2) Colitis, infectious SNOMED Code(s): 99635783 Code(s): A09 - INFECTIOUS GASTROENTERITIS AND COLITIS, UNSPECIFIED Status: Acute Priority: High Onset Date: ~04/07/17 - Problem List Review Problem List Initiated/Reviewed/Updated: Yes - Assessment Assessment:: dehydration acute renal insufficency - Plan Plan:: continue with antibiotic treatment. Will plan to DC tomorrow if pain continues to improve. Will discuss need for colonoscopy with patient.
== END 2017-04-19 11:30 | disposition home or self-care (01) | DRG 249 ==
LOC: LL.ED 18:09 → LL.MS 20:45
PROVIDERS: ADMIT Family Medicine; ATTEND Family Medicine
DX: A09 Infectious gastroenteritis and colitis, unspecified (principal); K57.32 Diverticulitis of large intestine without perforation or abscess without bleeding; E86.0 Dehydration; N17.9 Acute kidney failure, unspecified; I10 Essential (primary) hypertension; J45.909 Unspecified asthma, uncomplicated; C90.00 Multiple myeloma not having achieved remission; G43.909 Migraine, unspecified, not intractable, without status migrainosus; Z79.01 Long term (current) use of anticoagulants; Z79.899 Other long term (current) drug therapy; Z88.7 Allergy status to serum and vaccine; Z88.8 Allergy status to other drugs, medicaments and biological substances; Z91.018 Allergy to other foods
CPT/HCPCS: 36415; 74020; 80048; 85025; 96361; 96374; 99285; A9270-GY; J0744; J1170; J2405; J7030; J7050

== ENCOUNTER 2017-04-21 08:50 | Day surgery (SDC) | payer BC ==
[~2017-04-21 08:50] MED LIST: Lactated Ringers 1,000 ML IV SCH; Sodium Chloride 0.9% 10 ML Syringe FLUSH PRN
[2017-04-21] MEDS ORDERED: Propofol 200 MG/20 ML SDV ONE ×2 (09:53→10:04)
--- NOTE | 2017-04-21 10:04 | PCM.PN ---
- General Info Date of Service: 04/21/17 - Review of Systems Systems Review Comment:: 61-year-old male referred for EGD and colonoscopy. He was recently hospitalized with left lower quadrant abdominal pain and suspected diverticulitis. He says he has had colon polyps in the past as well and his last colonoscopy was over 5 years ago. In addition the patient does have some GERD symptoms and takes PPI agents on a long-term basis. Patient is medically stable to proceed today with no significant change in his health status since his recent history and physical which is reviewed. I discussed the proposed EGD and colonoscopy with the patient. Risks such as but not limited to bleeding and GI injury are discussed. These risks are slightly increased in this patient due to recent use of blood thinner and possible colon inflammation. He appears to understand the discussion and agrees to proceed. - Patient Data Vitals - most recent: Last Vital Signs Temp 96.8 F 04/21/17 09:48 Pulse 83 04/21/17 09:48 Resp 16 04/21/17 09:48 BP 157/77 H 04/21/17 09:48 Pulse Ox 99 04/21/17 09:48 Weight - most recent: 89.358 kg Med Orders - Current: Current Medications Lactated Ringer's (Ringers, Lactated) 1,000 mls @ 125 mls/hr IV ASDIRECTED [facility] Sodium Chloride (Saline Flush) 10 ml FLUSH ASDIRECTED PRN PRN Reason: Keep Vein Open Discontinued Medications Propofol (Diprivan 20 Ml) Confirm Administered Dose 600 mg .ROUTE .STK-MED ONE Stop: 04/21/17 09:54 - Problem List Review Problem List Initiated/Reviewed/Updated: Yes - Assessment Assessment:: History of GERD History of colon polyps Recent possible diverticulitis - Plan Plan:: EGD and colonoscopy
--- NOTE | 2017-04-21 11:03 | PCM.OPNOTE ---
- General Post-Op/Procedure Note Date of Surgery/Procedure: 04/21/17 Operative Procedure(s): EGD with Biopsy and Colonoscopy Findings: Small Hiatal Hernia Moderate Gastritis in Antrum without ulceration Internal Hemorrhoids Mild Sigmoid Diverticulitis Pre Op Diagnosis: GERD. Diverticulitis Post-Op Diagnosis: Hiatal Hernia. Gastritis. Diverticulitis. Hemorrhoids Anesthesia Technique: [facility] Primary Surgeon: Missael Verdin Pathology: Biopsies of Gastric Antrum Output, Urine Amount: 0 EBL in mLs: 2 Complications: None Condition: Good Free Text/Narrative:: Intake & Output 04/20/17 04/21/17 04/21/17 22:59 06:59 14:59 Intake Total 800 Balance 800
[2017-04-21 12:20] VITALS: BP 147/76
--- NOTE | 2017-04-21 14:13 | OR ---
Date of Procedure: 04/21/2017 PREOPERATIVE DIAGNOSES: 1. Gastroesophageal reflux disease. 2. Diverticulitis. POSTOPERATIVE DIAGNOSES: 1. Hiatal hernia. 2. Gastritis. 3. Sigmoid diverticulitis. 4. Internal hemorrhoids. OPERATION PERFORMED: Esophagogastroduodenoscopy with biopsy and colonoscopy. INDICATIONS FOR SURGERY: This 61-year-old male, who has a longstanding history of GERD with chronic use of PPI agent. He recently was hospitalized with left lower quadrant abdominal pain consistent with diverticulitis. It has been several years since his last colonoscopy and he does report a history of polyps. FINDINGS: On upper endoscopy, the patient has a small hiatal hernia measuring approximately 2-3 cm. The Z-line is distinct, 35 cm from the incisors with the diaphragm being approximately 38 cm from the incisors. In the gastric antrum, there is mild hyperemia and prominence of mucosal folds consistent with gastritis. No ulcerations are seen. Duodenum appears normal. On colonoscopy, the patient has a moderate degree of sigmoid diverticulitis with multiple diverticula being seen. Some thickening of the folds and areas of hyperemia of the mucosa through this area. There was no exudate noted at this time. The patient also has moderate-sized internal hemorrhoids, but the remainder of the colon appeared normal. PROCEDURE IN DETAIL: The patient was taken to the operating room. He was given intravenous sedation and with him in the left lateral decubitus position, the esophagus was intubated with the gastroscope through a teeth protector. The scope was then carefully advanced through the esophagus, stomach, and into the duodenum where examination to the 4th portion was performed. The duodenum was carefully examined and found to appear normal. The scope was withdrawn back into the stomach where full examination, including retroflexed examination of the fundus was performed. Biopsies of the thickened folds in the antrum were taken to rule out H. pylori. The area of the GE junction and hiatal hernia were examined and then the esophagus was examined as the scope was withdrawn. Attention was turned to colonoscopy. Digital rectal exam was performed showing no rectal masses. The Olympus colonoscope was inserted into the rectum. Retroflexed examination of the rectal canal was performed. The scope was then carefully advanced under direct visualization through the entire length of the colon until the cecum was reached. Acquisition of the cecum did require some hand pressure. The cecum was able to be viewed including the appendiceal orifice and ileocecal valve. The light was noted to transilluminate the abdominal wall in the right lower quadrant. After examining the cecum, the scope was slowly withdrawn sequentially re-examining the colonic segments until the entire colon and rectum had been fully examined. The scope was then removed and the patient was taken from the operating room in satisfactory condition. ESTIMATED BLOOD LOSS: 2 mL. COMPLICATIONS: None. PROGNOSIS: Good. SEN Verdin MD /[id number]
== END 2017-04-21 12:12 | disposition home or self-care (01) ==
LOC: LL.SDS 08:50
PROVIDERS: ATTEND Surgery
DX: K57.32 Diverticulitis of large intestine without perforation or abscess without bleeding (principal); K29.70 Gastritis, unspecified, without bleeding; K44.9 Diaphragmatic hernia without obstruction or gangrene; K21.9 Gastro-esophageal reflux disease without esophagitis; K31.9 Disease of stomach and duodenum, unspecified; K64.8 Other hemorrhoids; Z86.010 Personal history of colon polyps; I10 Essential (primary) hypertension; J45.909 Unspecified asthma, uncomplicated; G43.909 Migraine, unspecified, not intractable, without status migrainosus; Z79.899 Other long term (current) drug therapy
CPT/HCPCS: 43239; 45378; J2704; J7120

== ENCOUNTER 2017-11-08 15:34 | Inpatient (IN) | payer BC ==
[2017-11-08] MEDS ORDERED: Famotidine 20 MG/2 ML SDV IVPUSH ONE (15:46)
[2017-11-08] MEDS ORDERED: Metoprolol Tartrate 5 MG/5 ML SDV IVPUSH ONE ×2 (15:46→22:06)
--- NOTE | 2017-11-08 15:46 | EDM.PDOC ---
ED HPI GENERAL MEDICAL PROBLEM - General Chief Complaint: Chest Pain Stated Complaint: heart palpatation/Racing heart Time Seen by Provider: 11/08/17 15:40 Source of Information: Reports: Patient, Family (), Old Records ([facility] chart/EMR), Other ([facility] EMR) History Limitations: Reports: No Limitations - History of Present Illness INITIAL COMMENTS - FREE TEXT/NARRATIVE: The patient drove himself to [facility] via private automobile for evaluation of non- specific 6/10 right-sided chest burning/pain associated with nausea, heart flutter and dizziness with symptoms starting at about 6 AM this morning when he woke up. He did take his morning medications at that time and was able to go to work. No significant evaluation or treatment at [facility] with patient brought to the emergency room via wheelchair by his provider, Clover Mcbride PA-C, at [facility]. The patient denies any other chest pain/pressure, orthostasis, orthopnea, diaphoresis, paresthesias, recent decreased exercise tolerance, or any other anginal-type symptoms. Note that he was recently evaluated by a mandate retail service merchandiser at [facility] in [place] with negative heart catheterization as below. He has had problems with recurrent atrial fibrillation with initiation of flecainide about 3 weeks ago with no other recent change in medical therapy. No recent history of abdominal pain, heartburn, nausea, diarrhea, melena, gross hematochezia, or any food intolerance, including fatty foods, etc.. The patient also denies any recent fever, cough, wheezing, dyspnea, etc.. He has not used any OTC cold preparations, excessive caffeine, etc. Onset: Today, Sudden Onset Date: 11/08/17 Onset Time: 06:00 Duration: Constant, Getting Worse Location: Reports: Chest (As above). Denies: Face, Neck, Abdomen, Back, Upper Extremity, Left, Upper Extremity, Right, Lower Extremity, Left, Lower Extremity , Right, Radiates to Quality: Reports: Burning, Same as Previous Episode Severity: Moderate Improves with: Reports: None Worsens with: Reports: None Context: Reports: Other (As above) Associated Symptoms: Reports: Chest Pain, Nausea/Vomiting (No emesis). Denies: Confusion, Cough, cough w sputum, Diaphoresis, Fever/Chills, Headaches, Loss of Appetite, Malaise, Shortness of Breath, Syncope, Weakness Treatments ASSEM[employer]ER [employer]: Reports: Other (see below) (None) Right Middle Frontal Chest Pain Score (Numeric/FACES): 6 - Related Data Allergies Allergy/AdvReac Type Severity Reaction Status Date / Time ezetimibe [From Vytorin] Allergy Muscle Verified 04/21/17 09:10 Aches iodine Allergy Airway Verified 11/08/17 15:40 Tightness shellfish derived Allergy Airway Verified 11/08/17 16:14 Tightness Tetanus Vaccines and Toxoid Allergy Hives Verified 04/21/17 09:10 [Tetanus Vaccines & Toxoid] fish Allergy Intermediate Airway Uncoded 04/21/17 09:10 Tightness Home Meds: Home Meds Metoprolol Succinate [Toprol Xl] 50 mg PO BEDTIME 07/13/14 [History] Omeprazole 20 mg PO BID 07/13/14 [History] Rizatriptan [Maxalt] 10 mg PO DAILY PRN 07/13/14 [History] Simvastatin 10 mg PO QAM 07/13/14 [History] Fluticasone Propionate [Flovent] 100 mcg IH BID PRN 05/28/15 [History] Apixaban [Eliquis] 5 mg PO BID 04/16/17 [History] Cyanocobalamin (Vitamin B-12) [B-12] 1,000 mcg PO BEDTIME 04/16/17 [History] Latanoprost [Xalatan 0.005% Ophth Soln] 1 drop EYEBOTH BEDTIME 04/16/17 [History ] Flecainide [Tambocor] 50 mg PO BID@0800,1800 11/08/17 [History] ZOLMitriptan [Zolmitriptan Odt] 5 mg PO ASDIRECTED PRN 11/08/17 [History] amLODIPine [Norvasc] 5 mg PO BEDTIME 11/08/17 [History] Past Medical History HEENT History: Reports: Allergic Rhinitis, Cataract, Glaucoma, Impaired Vision, Other (See Below). Denies: Hard of Hearing, Macular Degeneration, Retinal Detachment Other HEENT History: pt wears glasses. Allergic rhinitis to pollen, pets, etc. Cardiovascular History: Reports: Afib, Arrhythmia, Heart Murmur, High Cholesterol, Hypertension, Other (See Below). Denies: Aneurysm, Blood Clots/VTE /DVT, CAD, Cardiomyopathy, Heart Failure, NJ, Pacemaker, PTCA, PVD, Stents, Syncope Other Cardiovascular History: Chronic atrial fibrillation with current anticoagulation therapy and previous ablation as below however still refractory. First-degree AV block. Benign heart murmur as a child. Fatty liver secondary to hyperlipidemia. Respiratory History: Reports: Asthma, COPD, Intubation, Previous, Pulmonary Fibrosis, Other (See Below). Denies: Intubation, Difficult, PE, Pneumothorax, Sleep Apnea, TB Other Respiratory History: Childhood asthma with additional COPD and pulmonary fibrosis Gastrointestinal History: Reports: Colon Polyp, Diverticulosis, Gastritis, GERD , Hemorrhoids, Hiatal Hernia, Other (See Below). Denies: Celiac Disease, Cholelithiasis, Chronic Constipation, Chronic Diarrhea, Fecal Incontinence, GI Bleed, Hepatitis, Inflammatory Bowel Disease, Irritable Bowel Syndrome, Jaundice , Pancreatitis, PUD Other Gastrointestinal History: History of unknown type of benign distant colonic polyps. Recurrent diverticulitis including in April 2017, May 2015, July 2013 and May 2012 Genitourinary History: Reports: BPH, Chronic Renal Insuffiency, Other (See Below ). Denies: Acute Renal Failure, Dialysis, Renal Calculus, Retention, Urinary, STD, Urinary Incontinence, UTI, Recurrent Other Genitourinary History: Stage III chronic renal insufficiency with proteinuria Musculoskeletal History: Reports: Arthritis, Back Pain, Chronic, Neck Pain, Chronic, Osteoarthritis, Other (See Below). Denies: Amputation, Fracture, Fibromyalgia, Gout, Osteoporosis, RA, SLE Other Musculoskeletal History: Mild Scoliosis, mild grade 1 L5-S1 spondylolisthesis. Right distal biceps tendon tear diagnosed on 07/30/14 with repair as below Neurological History: Reports: Headaches, Chronic, Migraines. Denies: Cerebral Aneurysms, Concussion, CVA, Head Trauma, MS, Neuropathy, Peripheral, Parkinson's , Seizure, TIA Psychiatric History: Reports: None. Denies: Abuse, Victim of, ADD, ADHD, Addiction, Anxiety, Depression, Psych Hospitalization(s), PTSD, Suicide Attempt , Suicidal Ideation Endocrine/Metabolic History: Reports: None. Denies: Diabetes, Type I, Diabetes , Type II, Diabetes Mellitus, Type 3c, Hypothyroidism, IDDM Hematologic History: Reports: Anemia, B12 Deficiency, Other (See Below). Denies : Blood Transfusion(s), Iron Deficiency Other Hematologic History: Multiple myeloma as below. Distant iron deficiency anemia requiring transfusions in his 20s Immunologic History: Reports: Immunosuppression, Other (See Below). Denies: AIDS, HIV, SLE Other Immunologic History: Multiple myeloma Oncologic (Cancer) History: Reports: Other (See Below). Denies: Basal Cell Carcinoma, Colon, Hodgkin's Lymphoma, Leukemia, Lymphoma, Malignant Melanoma, Non-Hodgkin's Lymphoma, Prostate, Squamous Cell Carcinoma Other Oncologic History: multiple myeloma/monoclonal gammopathy initially diagnosed in 2008 with no treatment to this point Dermatologic History: Reports: Angiodema, Eczema, Other (See Below). Denies: Psoriasis Other Dermatologic History: Eczema mostly as a child. Angioedema, dyspnea, dysphagia with fish and iodine exposure - Infectious Disease History Infectious Disease History: Reports: Chicken Pox, Measles, Mumps, Shingles ( Left Facial in 2016). Denies: C-Difficile, Helicobacter Pylori, Meningitis, Mononucleosis, MRSA, Pertussis (Whooping Cough), Rheumatic Fever, Rubella, Scarlet Fever, TB - Past Surgical History Head Surgeries/Procedures: Reports: None HEENT Surgical History: Reports: Cataract Surgery, Naso-Sinus Surgery, Oral Surgery, Other (See Below). Denies: Adenoidectomy, Eye Surgery, Laser Surgery, LASIK, Myringotomy w Tube(s), Tonsillectomy Other HEENT Surgeries/Procedures: Nasal surgery in his 30s. Bilateral cataract surgery with right sided surgery in 2015 with left-sided surgery in 2017. Multiple teeth extractions with complete upper dentures and partial lowers Cardiovascular Surgical History: Reports: Cardiac Ablation, Other (See Below). Denies: Coronary Artery Bypass, Coronary Artery Stent, Pacer, Varicose, Vascular Surgery Other Cardiovascular Surgeries/Procedures: Cardiac ablation on 09/14/2016 Respiratory Surgical History: Reports: None. Denies: Thoracentesis GI Surgical History: Reports: Colonoscopy, EGD, Polypectomy, Other (See Below). Denies: Appendectomy, Cholecystectomy, Hernia, Abdominal, Hernia, Inguinal, Hernia Repair/Other Other GI Surgeries/Procedures: Last EGD and colonoscopy on 04/21/17 with negative H. pylori biopsy at that time. Note distant polypectomy several years ago as above. Repeat his colonoscopy in July 2012 Male Surgical History: Reports: Circumcision, Other (See Below). Denies: Prostate Biopsy, TURP-Transurethral Resection of Prostate, Vasectomy Other Male Surgeries/Procedures: Circumcision as an Endocrine Surgical History: Reports: None. Denies: Thyroid Biopsy Neurological Surgical History: Reports: None. Denies: C-Spine, Discectomy, Laminectomy, Lumbar Spine, Spinal Fusion, Vertebroplasty Musculoskeletal Surgical History: Reports: Other (See Below). Denies: Arthroscopic Procedure, Carpal Tunnel, Ganglion Cyst, Joint Replacement, ORIF, Shoulder Surgery Other Musculoskeletal Surgeries/Procedures:: Right distal biceps tendon tear repair on 08/13/14 Oncologic Surgical History: Reports: None Dermatological Surgical History: Reports: Other (See Below) Other Dermatological Surgeries/Procedures: Bone Marrow needle aspiration biopsy in his 20s - Past Imaging History Past Imaging History: Reports: Angiography (Negative heart catheterization on ), Cardiac Echo (Last echocardiogram on 10/04/17 with ejection fraction of 50 -55% with stable findings from previous evaluations on 09/14/16 and 03/16/16), CAT Scan (Negative CTA of the chest on 09/03/616. CT of the abdomen and pelvis with contrast on 04/13/17, 05/28/15, 07/23/13, and 06/01/12. CT of the brain on ), MRI (Right upper arm on 07/30/14), PFT (11/05/13), Stress Testing ( Cardiolite stress test on 10/17/17 did indicate possible inferolateral cardiac ischemia with ejection fraction of 55% and recurrence of his atrial fibrillation ), Ultrasound (Last renal ultrasound on 11/04/17 with previous abdominal ultrasound on 01/29/09 and renal ultrasound on 12/18/14), Other (See Below) (Bone survey for his multiple myeloma on 01/15/14) Social & Family History - Family History HEENT: Reports: Impaired Vision, Other (See Below). Denies: Glaucoma, Macular Degeneration, Retinal Detachment Other HEENT Family History: Father with diabetic retinopathy Cardiac: Reports: Bypass, CAD, Cardiomyopathy, Heart Failure, High Cholesterol, NJ, PVD/COD, Stent, Other (See Below). Denies: Afib, Aneurysm, Arrhythmia, Blood Clots/VTE/DVT, Heart Murmur, Syncope Other Cardiac Family History: Father with history of recurrent MIs initially at about age 55 with history of CABG at that time. Paternal grandfather with fatal NJ in his 70s. Mother with history of fatal CHF at age 80 with additional history of hyperlipidemia and carotid occlusive disease requiring surgery. Brother with no history of NJ however total of 10 PTCA/stent placements since age 35 Respiratory: Reports: None. Denies: Asthma, COPD, PE, Pneumothorax, Sleep Apnea GI: Reports: Diverticulitis, Other (See Below). Denies: Celiac Disease, Cholelithiasis, Colon Polyps, GERD, GI bleed, Hepatitis, Inflammatory Bowel Disease, Irritable Bowel Syndrome, Pancreatitis Other GI Family History: mother with diverticulosis : Reports: Renal Disease/Insufficiency, Other (See Below). Denies: Renal Calculus Other Family History: Father with diabetic nephropathy OBGYN: Reports: None. Denies: Endometriosis, Recurrent Spontaneous Musculoskeletal: Reports: None. Denies: Arthritis, Gout, RA, SLE Neurological: Denies: Alzheimers Disease, Cerebral Aneurysms, CVA, Dementia, Migraines, MS, Neuropathy, Diabetic, Neuropathy, Peripheral, Parkinson's, Seizure, TIA Psychiatric: Reports: Anxiety, Depression, Other (See Below). Denies: Abuse, Victim of, ADD, ADHD, Psych Hospitalization(s), PTSD, Suicide Attempt Other Psychiatric Family History: Father with anxiety depression disorder Endocrine/Metabolic: Reports: Diabetes, type II, IDDM, Other (See Below). Denies: Diabetes, Type I, Diabetes Mellitus, Type 3c, Hypothyroidism Other Endocrine/Metabolic Family History: IDDM in father and sister Hematologic: Reports: None. Denies: Anemia, SLE Immunologic: Reports: None. Denies: AIDS, HIV, SLE Dermatologic: Reports: None. Denies: Eczema, Psoriasis Oncologic: Reports: Breast, Other (See Below). Denies: Colon, Hodgkin's Lymphoma, Leukemia, Lymphoma, Non-Hodgkin's Lymphoma, Prostate, Skin Other Oncologic Family History: Sister with breast cancer in her 60s - Tobacco Use Smoking Status *Q: Never Smoker Used Tobacco, but Quit: No Smoking Cessation Information Provided To Patient: No Second Hand Smoke Exposure: No Second Hand Smoke Education Provided: No - Caffeine Use Caffeine Use: Reports: Coffee (3 cups per day), Soda (1 soda per day). Denies: Energy Drinks, Tea - Alcohol Use Alcohol Use History: No Days Per Week of Alcohol Use: 0 (No previous DWIs, problems with alcohol abuse, etc.) Alcohol Use in Last Twelve Months: No - Recreational Drug Use Recreational Drug Use: No Drug Use in Last 12 Months: No Recreational Drug Type: Denies: Amphetamines (Speed), Cocaine, Heroin, Inhalants (Glues, Solvents, Aerosols), LSD (Acid), Marijuana/Hashish, Methamphetamine, Morphine - Sexual History Sexual History: Reports: Sexually Active, Single Partner - Living Situation & Occupation Living situation: Reports: (1977, 2 children), with Family () Occupation: Employed [place] [place] ED ROS GENERAL - Review of Systems Review Of Systems: See Below Constitutional: Reports: No Symptoms. Denies: Fever, Chills, Malaise, Weakness , Fatigue, Night Sweats, Diaphoresis, Decreased Appetite, Weight Loss, Weight Gain HEENT: Reports: Glasses. Denies: Contact Lenses, Dental Pain, Ear Discharge, Ear Pain, Eye Pain, Hearing Loss, Nosebleed, Rhinitis, Sinus Problem, Throat Pain, Throat Swelling, Vertigo, Vision Change Respiratory: Reports: No Symptoms. Denies: Shortness of Breath, Wheezing, Pleuritic Chest Pain, Cough, Hemoptysis Cardiovascular: Reports: Chest Pain, Lightheadedness, Palpitations. Denies: Blood Pressure Problem, Claudication, Dyspnea on Exertion, Edema, Orthopnea, PND , Syncope Endocrine: Reports: No Symptoms. Denies: Fatigue GI/Abdominal: Reports: Nausea. Denies: Abdominal Pain, Anorexia, Black Stool, Bloody Stool, Constipation, Diarrhea, Decreased Appetite, Difficulty Swallowing , Distension, Flatus, Hematemesis, Hematochezia, Melena, Mucous in Stool, Stool Incontinence, Vomiting : Reports: No Symptoms. Denies: Discharge, Dysuria, Flank Pain, Frequency, Hematuria, Incontinence, Pain, Urgency, Urinary Retention Musculoskeletal: Reports: No Symptoms. Denies: Neck Pain, Shoulder Pain, Arm Pain, Back Pain, Leg Pain Skin: Reports: No Symptoms. Denies: Diaphoresis, Bruising, Wound Neurological: Reports: Dizziness. Denies: Confusion, Headache, Numbness, Paresthesia, Syncope, Tingling, Trouble Speaking, Weakness Psychiatric: Reports: No Symptoms. Denies: Agitation, Anxiety, Confusion, Depression, Hallucinations, Homicidal Ideation, Suicidal Ideation Hematologic/Lymphatic: Reports: No Symptoms Immunologic: Reports: No Symptoms. Denies: Seasonal Allergy ED EXAM, GENERAL - Physical Exam Exam: See Below Exam Limited By: No Limitations General Appearance: Alert, WD/WN, No Apparent Distress Eye Exam: Bilateral Eye: EOMI, Normal Inspection (No nystagmus. Patient wearing glasses), PERRL Ears: Normal External Exam, Normal Canal, Hearing Grossly Normal, Normal TMs Nose: Normal Inspection, Normal Mucosa, No Blood Throat/Mouth: Normal Inspection, Normal Lips, Normal Gums, Normal Oropharynx, Normal Voice, No Airway Compromise. No: Normal Teeth (Complete upper dentures, partial lower), Dysphagia, Perioral Cyanosis Head: Atraumatic, Normocephalic. No: Facial Swelling, Facial Tenderness, Sinus Tenderness Neck: Normal Inspection, Supple, Non-Tender, Full Range of Motion. No: Carotid Bruit, Lymphadenopathy (L), Lymphadenopathy (R), Thyromegaly Respiratory/Chest: No Respiratory Distress, No Accessory Muscle Use, Chest Non- Tender, Rales (Bilateral basilarmild). No: Rhonchi, Wheezing, Pleural Rub, Retractions Cardiovascular: Normal Peripheral Pulses, No Edema, No Gallop, No JVD, No Murmur , No Rub, Irregularly Irregular. No: Gallop/S3, Gallop/S4, Friction Rub Peripheral Pulses: 2+: Radial (L), Radial (R), Dorsalis Pedis (L), Dorsalis Pedis (R) GI/Abdominal: Normal Bowel Sounds, Soft, Non-Tender, No Organomegaly, No Distention, No Abnormal Bruit, No Mass, Pelvis Stable. No: Guarding (Male) Exam: Deferred Rectal (Males) Exam: Deferred Back Exam: Normal Inspection, Full Range of Motion. No: CVA Tenderness (L), CVA Tenderness (R), Muscle Spasm Extremities: Normal Inspection, Normal Range of Motion, Non-Tender, No Pedal Edema, Normal Capillary Refill. No: Rosina's Sign Neurological: Alert, Oriented, CN II-XII Intact, Normal Cognition, Normal Gait, Normal Reflexes (Negative Babinski's), No Motor/Sensory Deficits Psychiatric: Normal Affect, Normal Mood Skin Exam: Warm, Dry, Intact, Normal Color, No Rash. No: Diaphoretic, Ecchymosis, Wound/Incision Lymphatic: No Adenopathy EKG INTERPRETATION EKG Date: 11/08/17 Time: 15:41 Rhythm: A-Fib (With rapid ventricular response) Rate (Beats/Min): 120 [place]: Normal (Left cardiac axis) P-Wave: Variable QRS: Normal (QRS interval of 0.09 seconds with poor R-wave progression in the anterior leads) ST-T: Normal QT: Normal Comparison: Change From Previous EKG (Conversion from previous first degree AV block to atrial fibrillation with rapid ventricular response since last EKG at [facility] on 10/27/17) EKG Interpretation Comments: 1. No acute ischemic changes 2. Atrial fibrillation with rapid ventricular response Course - Vital Signs Last Recorded V/S: Last Vital Signs Temp 36.8 C 11/08/17 15:43 Pulse 107 H 11/08/17 16:33 Resp 18 11/08/17 16:33 BP 139/85 11/08/17 16:33 Pulse Ox 100 11/08/17 16:33 Vital Signs - 24 hr 11/08/17 11/08/17 11/08/17 15:35 15:40 15:43 Temperature [ 36.8 C 36.8 C Oral] Pulse, Peripheral Pulse, 100 120 H Peripheral [ Right Pulse Oximetry] Respiratory 20 20 Rate Blood Pressure Blood Pressure 157/93 H 149/89 H [Right Upper Arm] O2 Sat by Pulse 96 100 Oximetry O2 Sat by Pulse 100 Oximetry [ Nasal Cannula] O2 Sat by Pulse 99 Oximetry [Room Air] 11/08/17 11/08/17 11/08/17 15:46 15:59 16:05 Temperature [ Oral] Pulse, 104 H Peripheral Pulse, 120 H Peripheral [ Right Pulse Oximetry] Respiratory 20 Rate Blood Pressure 117/72 Blood Pressure 117/72 [Right Upper Arm] O2 Sat by Pulse 100 Oximetry O2 Sat by Pulse 100 Oximetry [ Nasal Cannula] O2 Sat by Pulse Oximetry [Room Air] 11/08/17 11/08/17 11/08/17 16:24 16:33 16:45 Temperature [ Oral] Pulse, Peripheral Pulse, 111 H 107 H 103 H Peripheral [ Right Pulse Oximetry] Respiratory 18 18 14 Rate Blood Pressure Blood Pressure 134/76 139/85 115/77 [Right Upper Arm] O2 Sat by Pulse 100 100 100 Oximetry O2 Sat by Pulse Oximetry [ Nasal Cannula] O2 Sat by Pulse Oximetry [Room Air] 11/08/17 17:00 Temperature [ Oral] Pulse, Peripheral Pulse, 110 H Peripheral [ Right Pulse Oximetry] Respiratory 15 Rate Blood Pressure Blood Pressure 129/86 [Right Upper Arm] O2 Sat by Pulse 100 Oximetry O2 Sat by Pulse Oximetry [ Nasal Cannula] O2 Sat by Pulse Oximetry [Room Air] - Orders/Labs/Meds Orders: Active Orders 24 hr Category Date Time Status Cardiac Monitoring [RC] . DIRECTED Care 11/08/17 15:46 Active EKG Documentation Completion [RC] ASDIRECTED Care 11/08/17 15:47 Active Oxygen Therapy, ED [RC] CONTINUOUS Care 11/08/17 15:46 Active Peripheral IV Care [RC] . DIRECTED Care 11/08/17 15:46 Active Pulse Oximetry [RC] CONTINUOUS Care 11/08/17 15:46 Active Up With Assistance [RC] PFP Care 11/08/17 15:46 Active Vital Signs [RC] PFP Care 11/08/17 15:46 Active Nothing per Oral Now Diet [DIET] Diet 11/08/17 Breakfast Active Chest 1V Frontal [CR] Stat Exams 11/08/17 15:46 Taken Sodium Chloride 0.9% [Saline Flush] Med 11/08/17 15:46 Active 10 ml FLUSH ASDIRECTED PRN Obtain Past Medical Record [OM.PC] Urgent Oth 11/08/17 15:46 Active Peripheral IV Insertion Adult [OM.PC] Stat Oth 11/08/17 15:46 Ordered Resuscitation Status Stat Resus Stat 11/08/17 15:46 Ordered Medication Orders Sodium Chloride (Saline Flush) 10 ml FLUSH ASDIRECTED PRN PRN Reason: Keep Vein Open Last Admin: 11/08/17 16:05 Dose: 10 ml Labs: Laboratory Tests 11/08/17 11/08/17 11/08/17 Range/Units 15:44 15:44 15:44 WBC 13.4 H (4.0-10.2) K/uL RBC 5.24 (4.33-5.41) M/uL Hgb 16.5 D (13.1-16.8) g/dL Hct 46.6 (39.0-49.0) % MCV 88.9 (84.0-98.0) fL MCH 31.5 (28.2-33.3) pg MCHC 35.4 (31.7-36.0) g/dL RDW 14.1 (11.2-14.1) % Plt Count 296 (150-350) K/uL Neut % (Auto) 41.4 L (45.0-80.0) % Lymph % (Auto) 45.8 (10.0-50.0) % [place] % (Auto) 8.7 (2.0-14.0) % Eos % (Auto) 3.4 (0.0-5.0) % Baso % (Auto) 0.7 (0.0-2.0) % Neut # (Auto) 5.55 (1.40-7.00) K/uL Lymph # (Auto) 6.14 H (0.50-3.50) K/uL [place] # (Auto) 1.16 H (0.00-1.00) K/uL Eos # (Auto) 0.46 (0.00-0.50) K/uL Baso # (Auto) 0.10 (0.00-0.20) K/uL PT 10.2 (9.8-11.7) SEC INR 1.0 APTT 26.1 (22.1-29.8) SEC D-Dimer, Quantitative 214 (0-400) ng/mL Sodium (136-145) mmol/L Potassium (3.5-5.1) mmol/L Chloride (98-107) mmol/L Carbon Dioxide (21.0-32.0) mmol/L BUN (7-18) mg/dL Creatinine (0.51-1.17) mg/dL Est Cr Clr Drug Dosing mL/min Estimated GFR (MDRD) mL/min Glucose (74-106) mg/dL Lactic Acid (0.4-2.0) mmol/L Uric Acid (2.6-7.2) mg/dL Calcium (8.5-10.1) mg/dL Magnesium (1.8-2.4) mg/dL Total Bilirubin (0.2-1.0) mg/dL AST (15-37) U/L ALT (12-78) U/L Alkaline Phosphatase (46-116) IU/L Creatine Kinase (26-308) U/L Creatine Kinase Index (0.0-2.5) % CK-MB (CK-2) (0.00-3.60) ng/mL Troponin I (0.000-0.056) ng/mL NT-Pro-B Natriuret Pep (0-125) pg/mL Total Protein (6.4-8.2) g/dL Albumin (3.4-5.0) g/dL TSH, Ultra Sensitive (0.358-3.740) mIU/mL 11/08/17 11/08/17 Range/Units 15:44 15:44 WBC (4.0-10.2) K/uL RBC (4.33-5.41) M/uL Hgb (13.1-16.8) g/dL Hct (39.0-49.0) % MCV (84.0-98.0) fL MCH (28.2-33.3) pg MCHC (31.7-36.0) g/dL RDW (11.2-14.1) % Plt Count (150-350) K/uL Neut % (Auto) (45.0-80.0) % Lymph % (Auto) (10.0-50.0) % [place] % (Auto) (2.0-14.0) % Eos % (Auto) (0.0-5.0) % Baso % (Auto) (0.0-2.0) % Neut # (Auto) (1.40-7.00) K/uL Lymph # (Auto) (0.50-3.50) K/uL [place] # (Auto) (0.00-1.00) K/uL Eos # (Auto) (0.00-0.50) K/uL Baso # (Auto) (0.00-0.20) K/uL PT (9.8-11.7) SEC INR APTT (22.1-29.8) SEC D-Dimer, Quantitative (0-400) ng/mL Sodium 136 (136-145) mmol/L Potassium 3.6 (3.5-5.1) mmol/L Chloride 101 (98-107) mmol/L Carbon Dioxide 29.2 (21.0-32.0) mmol/L BUN 12 (7-18) mg/dL Creatinine 1.09 (0.51-1.17) mg/dL Est Cr Clr Drug Dosing 68.47 mL/min Estimated GFR (MDRD) > 60 mL/min Glucose 99 (74-106) mg/dL Lactic Acid 1.9 (0.4-2.0) mmol/L Uric Acid 6.2 (2.6-7.2) mg/dL Calcium 9.4 (8.5-10.1) mg/dL Magnesium 2.0 (1.8-2.4) mg/dL Total Bilirubin 0.6 (0.2-1.0) mg/dL AST 21 (15-37) U/L ALT 35 (12-78) U/L Alkaline Phosphatase 82 (46-116) IU/L Creatine Kinase 57 (26-308) U/L Creatine Kinase Index 1.6 (0.0-2.5) % CK-MB (CK-2) 0.90 (0.00-3.60) ng/mL Troponin I 0.005 (0.000-0.056) ng/mL NT-Pro-B Natriuret Pep 994 H (0-125) pg/mL Total Protein 7.9 (6.4-8.2) g/dL Albumin 2.8 L (3.4-5.0) g/dL TSH, Ultra Sensitive 1.831 (0.358-3.740) mIU/mL Meds: Medications Generic Name Dose Route Start Last Admin Trade Name Freq PRN Reason Stop Dose Admin Sodium Chloride 10 ml 11/08/17 15:46 11/08/17 16:05 Saline Flush FLUSH 10 ml ASDIRECTED PRN Administration Keep Vein Open Discontinued Medications Generic Name Dose Route Start Last Admin Trade Name Freq PRN Reason Stop Dose Admin Famotidine 40 mg 11/08/17 15:46 11/08/17 16:05 Pepcid IVPUSH 11/08/17 15:47 40 mg ONETIME ONE Administration Metoprolol Tartrate 2.5 mg 11/08/17 15:46 11/08/17 16:05 Lopressor IVPUSH 11/08/17 15:47 2.5 mg ONETIME ONE Administration - Radiology Interpretation Free Text/Narrative:: property assessment monitor shows atrial fibrillation with rapid ventricular response with average initial heart rate in the 120s with maximum heart rate of 125 with no PVCs PACs or other significant arrhythmia. Improved heart rate to the high 90s to 100s prior to admission with persistent atrial fibrillation Departure - Departure Time of Disposition: 17:25 Disposition: Admitted As Inpatient 64 Condition: Good Clinical Impression: Atypical chest pain, Renal insufficiency, Monoclonal gammopathy, Hypoalbuminemia, Leukocytosis Gastroesophageal reflux disease Qualifiers: Esophagitis presence: without esophagitis Qualified Code(s): K21.9 - Gastro- esophageal reflux disease without esophagitis CHF (congestive heart failure) Qualifiers: Congestive heart failure type: unspecified Congestive heart failure chronicity : acute Qualified Code(s): I50.9 - Heart failure, unspecified Atrial fibrillation Qualifiers: Atrial fibrillation type: chronic Qualified Code(s): I48.2 - Chronic atrial fibrillation Hypertension Qualifiers: Hypertension type: essential hypertension Qualified Code(s): I10 - Essential ( primary) hypertension Hyperlipidemia Qualifiers: Hyperlipidemia type: unspecified Qualified Code(s): E78.5 - Hyperlipidemia, unspecified Osteoarthritis Qualifiers: Osteoarthritis location: multiple joints Osteoarthritis type: primary Qualified Code(s): M15.0 - Primary generalized (osteo)arthritis Referrals: Opal Dale NP [Primary Care Provider] - Forms: ED Department Discharge Care Plan Goals: See plan. - Problem List & Annotations (1) Atypical chest pain SNOMED Code(s): 419095131 Code(s): R07.89 - OTHER CHEST PAIN Status: Acute Priority: High Current Visit: Yes Onset Date: 11/08/17 Annotation/Comment:: Somewhat atypical chest pain and anginal type symptoms with chest pain protocol initiated immediately upon patient's arrival to the emergency room. Note recent negative heart catheterization on 10/20/17. Initiate standard rule out [place] orders. Cardiology consultation depending on his clinical course. ASA and Plavix were not given secondary to his current Eliquis therapy. (2) Atrial fibrillation SNOMED Code(s): 60981415 Code(s): I48.91 - UNSPECIFIED ATRIAL FIBRILLATION Status: Acute Priority : High Current Visit: Yes Annotation/Comment:: Refractory recurrent atrial fibrillation with current rapid ventricle response, however overall good response to low-dose IV Lopressor in the emergency room. Continue medication adjustment during this hospitalization. 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 In addition, note previous unsuccessful cardiac ablation as above Qualifiers: Atrial fibrillation type: chronic Qualified Code(s): I48.2 - Chronic atrial fibrillation (3) CHF (congestive heart failure) SNOMED Code(s): 56463336 Code(s): I50.9 - HEART FAILURE, UNSPECIFIED Status: Acute Priority: High Current Visit: Yes Onset Date: 11/08/17 Annotation/Comment:: Mildly increased BNP elevation and borderline centralized CHF by chest x-ray as above. Mild CHF likely secondary to his tachycardia with recent normal heart catheterization as above and additional echocardiogram on 10/04/17 ejection fraction of 50-55% at that time. Low-dose diuretic therapy for now. Echocardiogram will likely not need to be repeated. Note possibility of his renal insufficiency as concomitant factor of BNP elevation, however normal creatinine today Qualifiers: Congestive heart failure type: unspecified Congestive heart failure chronicity: acute Qualified Code(s): I50.9 - Heart failure, unspecified (4) Gastroesophageal reflux disease SNOMED Code(s): 980193261 Code(s): K21.9 - GASTRO-ESOPHAGEAL REFLUX DISEASE WITHOUT ESOPHAGITIS Status: Chronic Priority: Medium Current Visit: Yes Annotation/Comment:: Stable by history with high-dose IV Pepcid given as GI prophylaxis Qualifiers: Esophagitis presence: without esophagitis Qualified Code(s): K21.9 - Gastro -esophageal reflux disease without esophagitis (5) Hyperlipidemia SNOMED Code(s): 24524503 Code(s): E78.5 - HYPERLIPIDEMIA, UNSPECIFIED Status: Chronic Priority: Medium Current Visit: Yes Annotation/Comment:: Lipid panel and glycosylated hemoglobin in the a.m. Qualifiers: Hyperlipidemia type: unspecified Qualified Code(s): E78.5 - Hyperlipidemia , unspecified (6) Hypertension SNOMED Code(s): 97612952 Code(s): I10 - ESSENTIAL (PRIMARY) HYPERTENSION Status: Chronic Priority : Medium Current Visit: Yes Annotation/Comment:: Blood pressure mildly elevated initially in the emergency room. Continue to observe closely with medication adjustments as needed Qualifiers: Hypertension type: essential hypertension Qualified Code(s): I10 - Essential (primary) hypertension (7) Hypoalbuminemia SNOMED Code(s): 642567135 Code(s): E88.09 - OTH DISORDERS OF PLASMA-PROTEIN METABOLISM, NEC Status: Acute Priority: Medium Current Visit: Yes Onset Date: 11/08/17 Annotation/Comment:: Consider high-protein Glucerna supplements, however previous history of hyperproteinemia secondary to his monoclonal gammopathy (8) Monoclonal gammopathy SNOMED Code(s): 455291101 Code(s): D47.2 - MONOCLONAL GAMMOPATHY Status: Chronic Priority: Medium Current Visit: Yes Annotation/Comment:: Stable by patient history with close follow-up by [facility] oncology in [place] with next appointment in March by patient history (9) Osteoarthritis SNOMED Code(s): 107136882 Code(s): M19.90 - UNSPECIFIED OSTEOARTHRITIS, UNSPECIFIED SITE Status: Chronic Priority: Medium Current Visit: Yes Annotation/Comment:: Stable by patient history Qualifiers: Osteoarthritis location: multiple joints Osteoarthritis type: primary Qualified Code(s): M15.0 - Primary generalized (osteo)arthritis (10) Renal insufficiency SNOMED Code(s): 286713235 Code(s): N28.9 - DISORDER OF KIDNEY AND URETER, UNSPECIFIED Status: Chronic Priority: Medium Current Visit: Yes Annotation/Comment:: Stable by patient history with close follow-up by nephrology in [place] with next appointment on 11/16/17 by patient history (11) Leukocytosis SNOMED Code(s): 496169665 Code(s): D72.829 - ELEVATED WHITE BLOOD CELL COUNT, UNSPECIFIED Status: Acute Priority: Medium Current Visit: Yes Onset Date: 11/08/17 Annotation/Comment:: Mild leukocytosis likely secondary to stress reaction with no recent history of fever, UTI symptoms, evidence of recurrence of his recurrent diverticulitis, etc. Urine specimen to be obtained shortly after admission. Qualifiers: Leukocytosis type: bandemia Qualified Code(s): D72.825 - Bandemia - Problem List Review Problem List Initiated/Reviewed/Updated: Yes - My Orders Last 24 Hours: My Active Orders 11/08/17 15:46 Cardiac Monitoring [RC] . DIRECTED Oxygen Therapy, ED [RC] CONTINUOUS Peripheral IV Care [RC] . DIRECTED Pulse Oximetry [RC] CONTINUOUS Up With Assistance [RC] PFP Vital Signs [RC] PFP Chest 1V Frontal [CR] Stat Sodium Chloride 0.9% [Saline Flush] 10 ml FLUSH ASDIRECTED PRN Obtain Past Medical Record [OM.PC] Urgent Peripheral IV Insertion Adult [OM.PC] Stat Resuscitation Status Stat 11/08/17 15:47 EKG Documentation Completion [RC] ASDIRECTED 11/08/17 Breakfast Nothing per Oral Now Diet [DIET] - Assessment/Plan Admission H&P: Please use this note as an admission H&P Last 24 Hours: My Active Orders 11/08/17 15:46 Cardiac Monitoring [RC] . DIRECTED Oxygen Therapy, ED [RC] CONTINUOUS Peripheral IV Care [RC] . DIRECTED Pulse Oximetry [RC] CONTINUOUS Up With Assistance [RC] PFP Vital Signs [RC] PFP Chest 1V Frontal [CR] Stat Sodium Chloride 0.9% [Saline Flush] 10 ml FLUSH ASDIRECTED PRN Obtain Past Medical Record [OM.PC] Urgent Peripheral IV Insertion Adult [OM.PC] Stat Resuscitation Status Stat 11/08/17 15:47 EKG Documentation Completion [RC] ASDIRECTED 11/08/17 Breakfast Nothing per Oral Now Diet [DIET] Assessment:: As above Plan: As above. Extensive precautions were given to the patient and his , who are in agreement with the treatment plan. The patient will require about 3-4 days of inpatient/acute care secondary to multiple health problems as above. [facility] assumes care in the a.m.
[2017-11-08] MEDS: Sodium Chloride 0.9% 10 ML Syringe FLUSH PRN ×4 (16:05→22:23)
[2017-11-08 16:40] LABS: CHLORIDE,CL 101 mmol/L (98-107); SODIUM,NA 136 mmol/L (136-145)
[2017-11-08] MEDS ORDERED: RIZATRIPTAN 10 MG PO PRN (17:33)
[2017-11-08] MEDS ORDERED: Sodium Chloride 0.9% 10 ML Syringe FLUSH PRN (17:33)
[2017-11-08] MEDS ORDERED: ZOLMITRIPTAN 5 MG PO PRN (17:33)
[2017-11-08] MEDS ORDERED: Mometasone Furoate HFA 100mcg/Puff 13 GM Inhaler INH PRN (17:33)
[2017-11-08] MEDS ORDERED: Metoprolol Succinate 50 MG Tab.ER PO ONE (17:38)
[2017-11-08] MEDS: Acetaminophen 325 MG Tab PO PRN (18:05)
[2017-11-08] MEDS: Apixaban 5 MG Tab PO SCH (18:05)
[2017-11-08] MEDS: Furosemide 40 MG/4 ML VIAL IVPUSH SCH (18:05)
[2017-11-08] MEDS: Flecainide 100 MG Tab PO SCH (18:21)
[2017-11-08] MEDS: Potassium Chloride 20 MEQ Tab.ER PO SCH (18:21)
[2017-11-08] MEDS: Cyanocobalamin (Vitamin B12) 1,000 MCG Tab PO SCH (19:27)
[2017-11-08] MEDS: Latanoprost 0.005% Ophth Soln 2.5 ML Bottle EYEBOTH SCH (19:27)
[2017-11-08] MEDS ORDERED: amLODIPine 5 MG Tab PO SCH (20:00)
[2017-11-08] MEDS: Temazepam 15 MG Cap PO PRN (22:00)
[2017-11-09] MEDS: Sodium Chloride 0.9% 10 ML Syringe FLUSH PRN (04:19)
[2017-11-09] MEDS: Furosemide 40 MG/4 ML VIAL IVPUSH SCH (04:19)
[2017-11-09 07:44] LABS: CHLORIDE,CL 103 mmol/L (98-107); SODIUM,NA 136 mmol/L (136-145)
[2017-11-09] MEDS: Simvastatin 10 MG Tab PO SCH (07:55)
[2017-11-09] MEDS: Apixaban 5 MG Tab PO SCH ×2 (07:55→21:18)
[2017-11-09] MEDS: Flecainide 100 MG Tab PO SCH (07:58)
[2017-11-09] MEDS ORDERED: Metoprolol Succinate 50 MG Tab.ER PO SCH (08:00)
[2017-11-09] MEDS: Potassium Chloride 20 MEQ Tab.ER PO SCH (08:03)
[2017-11-09] MEDS ORDERED: Flecainide 100 MG Tab PO ONE (10:15)
--- NOTE | 2017-11-09 17:15 | PCM.PN ---
- General Info Date of Service: 11/09/17 Functional Status: Reports: Pain Controlled - Review of Systems General: Reports: No Symptoms HEENT: Reports: No Symptoms Pulmonary: Reports: No Symptoms Cardiovascular: Reports: No Symptoms Gastrointestinal: Reports: No Symptoms Genitourinary: Reports: No Symptoms Musculoskeletal: Reports: No Symptoms Skin: Reports: No Symptoms Neurological: Reports: No Symptoms Psychiatric: Reports: No Symptoms - Patient Data Vitals - Most Recent: Last Vital Signs Temp 98.4 F 11/09/17 10:52 Pulse 117 H 11/09/17 10:52 Resp 17 11/09/17 10:52 BP 105/56 L 11/09/17 10:52 Pulse Ox 98 11/09/17 10:52 Weight - Most Recent: 190 lb 4.8 oz I&O - Last 24 Hours: Intake & Output 11/09/17 11/09/17 11/09/17 06:59 14:59 22:59 Intake Total 400 940 Output Total 900 1000 Balance -500 -60 Lab Results Last 24 Hours: Laboratory Results - last 24 hr 11/08/17 11/08/17 11/08/17 Range/Units 17:30 17:30 21:40 WBC (4.0-10.2) K/uL RBC (4.33-5.41) M/uL Hgb (13.1-16.8) g/dL Hct (39.0-49.0) % MCV (84.0-98.0) fL MCH (28.2-33.3) pg MCHC (31.7-36.0) g/dL RDW (11.2-14.1) % Plt Count (150-350) K/uL Neut % (Auto) (45.0-80.0) % Lymph % (Auto) (10.0-50.0) % [place] % (Auto) (2.0-14.0) % Eos % (Auto) (0.0-5.0) % Baso % (Auto) (0.0-2.0) % Neut # (Auto) (1.40-7.00) K/uL Lymph # (Auto) (0.50-3.50) K/uL [place] # (Auto) (0.00-1.00) K/uL Eos # (Auto) (0.00-0.50) K/uL Baso # (Auto) (0.00-0.20) K/uL Sodium (136-145) mmol/L Potassium (3.5-5.1) mmol/L Chloride (98-107) mmol/L Carbon Dioxide (21.0-32.0) mmol/L BUN (7-18) mg/dL Creatinine (0.51-1.17) mg/dL Est Cr Clr Drug Dosing mL/min Estimated GFR (MDRD) mL/min Glucose (74-106) mg/dL Hemoglobin A1c (4.3-5.7) % Calcium (8.5-10.1) mg/dL Total Bilirubin (0.2-1.0) mg/dL AST (15-37) U/L ALT (12-78) U/L Alkaline Phosphatase (46-116) IU/L Creatine Kinase 50 (26-308) U/L Creatine Kinase Index 1.2 (0.0-2.5) % CK-MB (CK-2) 0.60 (0.00-3.60) ng/mL Troponin I 0.003 (0.000-0.056) ng/mL NT-Pro-B Natriuret Pep (0-125) pg/mL Total Protein (6.4-8.2) g/dL Albumin (3.4-5.0) g/dL Triglycerides (30-150) mg/dL Cholesterol (100-200) mg/dL LDL Cholesterol, Calc (0-100) mg/dL HDL Cholesterol (40-60) mg/dL Specimen Type Urincc Urine Color Yellow Urine Appearance Clear Urine pH 5.5 (5.0-9.0) Ur Specific [place] 1.015 (1.005-1.030) Urine Protein >=300 H (NEGATIVE) mg/dL Urine Glucose (UA) Negative (NEGATIVE) mg/dL Urine Ketones Negative (NEGATIVE) mg/dL Urine Occult Blood Small H (NEGATIVE) Urine Nitrite Negative (NEGATIVE) Urine Bilirubin Negative (NEGATIVE) Urine Urobilinogen 0.2 (0.2-1.0) E.U./dL Ur Leukocyte Esterase Negative (NEGATIVE) Urine RBC 0-5 /HPF Urine WBC 0-5 /HPF Ur Epithelial Cells Rare /LPF Urine Bacteria Few (NONE TO FEW) /HPF Hyaline Casts Rare H (NEGATIVE) /LPF Ur Random Microalbumin 100 (NEGATIVE) mg/L 11/09/17 11/09/17 11/09/17 Range/Units 06:48 06:48 06:48 WBC 10.3 H (4.0-10.2) K/uL RBC 5.20 (4.33-5.41) M/uL Hgb 16.2 (13.1-16.8) g/dL Hct 45.8 (39.0-49.0) % MCV 88.1 (84.0-98.0) fL MCH 31.2 (28.2-33.3) pg MCHC 35.4 (31.7-36.0) g/dL RDW 13.8 (11.2-14.1) % Plt Count 293 (150-350) K/uL Neut % (Auto) 50.3 (45.0-80.0) % Lymph % (Auto) 37.0 (10.0-50.0) % [place] % (Auto) 8.4 (2.0-14.0) % Eos % (Auto) 3.4 (0.0-5.0) % Baso % (Auto) 0.9 (0.0-2.0) % Neut # (Auto) 5.20 (1.40-7.00) K/uL Lymph # (Auto) 3.83 H (0.50-3.50) K/uL [place] # (Auto) 0.87 (0.00-1.00) K/uL Eos # (Auto) 0.35 (0.00-0.50) K/uL Baso # (Auto) 0.09 (0.00-0.20) K/uL Sodium 136 (136-145) mmol/L Potassium 4.0 (3.5-5.1) mmol/L Chloride 103 (98-107) mmol/L Carbon Dioxide 26.9 (21.0-32.0) mmol/L BUN 14 (7-18) mg/dL Creatinine 1.10 (0.51-1.17) mg/dL Est Cr Clr Drug Dosing 67.84 mL/min Estimated GFR (MDRD) > 60 mL/min Glucose 106 (74-106) mg/dL Hemoglobin A1c 5.4 (4.3-5.7) % Calcium 9.3 (8.5-10.1) mg/dL Total Bilirubin 1.5 H (0.2-1.0) mg/dL AST 25 (15-37) U/L ALT 37 (12-78) U/L Alkaline Phosphatase 75 (46-116) IU/L Creatine Kinase 42 (26-308) U/L Creatine Kinase Index 1.0 (0.0-2.5) % CK-MB (CK-2) 0.40 (0.00-3.60) ng/mL Troponin I 0.000 (0.000-0.056) ng/mL NT-Pro-B Natriuret Pep 879 H (0-125) pg/mL Total Protein 7.3 (6.4-8.2) g/dL Albumin 2.5 L (3.4-5.0) g/dL Triglycerides 132 (30-150) mg/dL Cholesterol 168 (100-200) mg/dL LDL Cholesterol, Calc 103 H (0-100) mg/dL HDL Cholesterol 39 L (40-60) mg/dL Specimen Type Urine Color Urine Appearance Urine pH (5.0-9.0) Ur Specific [place] (1.005-1.030) Urine Protein (NEGATIVE) mg/dL Urine Glucose (UA) (NEGATIVE) mg/dL Urine Ketones (NEGATIVE) mg/dL Urine Occult Blood (NEGATIVE) Urine Nitrite (NEGATIVE) Urine Bilirubin (NEGATIVE) Urine Urobilinogen (0.2-1.0) E.U./dL Ur Leukocyte Esterase (NEGATIVE) Urine RBC /HPF Urine WBC /HPF Ur Epithelial Cells /LPF Urine Bacteria (NONE TO FEW) /HPF Hyaline Casts (NEGATIVE) /LPF Ur Random Microalbumin (NEGATIVE) mg/L Med Orders - Current: Current Medications Acetaminophen (Tylenol) 650 mg PO Q4H PRN PRN Reason: Pain Last Admin: 11/08/17 18:05 Dose: 650 mg Apixaban (Eliquis) 5 mg PO Q12HR [facility] Cyanocobalamin (Vitamin B12) 1,000 mcg PO BEDTIME [facility] Last Admin: 11/08/17 19:27 Dose: 1,000 mcg Flecainide Acetate (Tambocor) 50 mg PO BID [facility] Latanoprost (Xalatan 0.005% Ophth Soln) 0 ml EYEBOTH BEDTIME [facility] Last Admin: 11/08/17 19:27 Dose: 1 drop Metoprolol Succinate (Toprol Xl) 50 mg PO Q12HR [facility] Mometasone Furoate (Asmanex Hfa 100mcg) 0 gm INH BID PRN PRN Reason: asthma Non-Formulary Medication (Rizatriptan [Maxalt]) 10 mg PO DAILY PRN PRN Reason: Migraine Non-Formulary Medication (Zolmitriptan [Zolmitriptan Odt]) 5 mg PO ASDIRECTED PRN PRN Reason: migraine Simvastatin (Zocor) 10 mg PO QAM [facility] Last Admin: 11/09/17 07:55 Dose: 10 mg Sodium Chloride (Saline Flush) 10 ml FLUSH ASDIRECTED PRN PRN Reason: Keep Vein Open Last Admin: 11/09/17 04:19 Dose: 10 ml Sodium Chloride (Saline Flush) 10 ml FLUSH Q12HR [facility] Temazepam (Restoril) 15 mg PO BEDTIME PRN PRN Reason: Insomnia Last Admin: 11/08/17 22:00 Dose: 15 mg Discontinued Medications Amlodipine Besylate (Norvasc) 5 mg PO BEDTIME [facility] Last Admin: 11/08/17 19:29 Dose: 5 mg Apixaban (Eliquis) 5 mg PO BID [facility] Last Admin: 11/09/17 07:55 Dose: 5 mg Famotidine (Pepcid) 40 mg IVPUSH ONETIME ONE Stop: 11/08/17 15:47 Last Admin: 11/08/17 16:05 Dose: 40 mg Flecainide Acetate (Tambocor) 50 mg PO BID@0800,1800 [facility] Last Admin: 11/09/17 07:58 Dose: 50 mg Flecainide Acetate (Tambocor) 50 mg PO ONETIME ONE Stop: 11/09/17 10:16 Last Admin: 11/09/17 10:51 Dose: 50 mg Flecainide Acetate (Tambocor) 100 mg PO Q12HR [facility] Furosemide (Lasix) 40 mg IVPUSH Q12H [facility] Last Admin: 11/09/17 04:19 Dose: 40 mg Metoprolol Succinate (Toprol Xl) 50 mg PO ONETIME ONE Stop: 11/08/17 17:39 Last Admin: 11/08/17 18:08 Dose: 50 mg Metoprolol Succinate (Toprol Xl) 50 mg PO BID [facility] Last Admin: 11/09/17 07:59 Dose: 50 mg Metoprolol Succinate (Toprol Xl) 50 mg PO BEDTIME [facility] Metoprolol Tartrate (Lopressor) 2.5 mg IVPUSH ONETIME ONE Stop: 11/08/17 15:47 Last Admin: 11/08/17 16:05 Dose: 2.5 mg Metoprolol Tartrate (Lopressor) 5 mg IVPUSH ONETIME ONE Stop: 11/08/17 22:07 Last Admin: 11/08/17 22:20 Dose: 5 mg Potassium Chloride (Klor-Con M20) 20 meq PO BID [facility] Last Admin: 11/09/17 08:03 Dose: 20 meq Sodium Chloride (Saline Flush) 10 ml FLUSH Q12HR PRN PRN Reason: Keep Vein Open - Exam Quality Assessment: DVT Prophylaxis General: Alert, Cooperative, No Acute Distress HEENT: Pupils Equal, Pupils Reactive, EOMI, Mucous Membr. Moist/[place] Neck: Trachea Midline, No JVD Lungs: Clear to Auscultation, Normal Respiratory Effort Cardiovascular: Irregular Rhythm GI/Abdominal Exam: Soft, Non-Tender, No Distention (Male) Exam: Deferred Back Exam: Normal Inspection Extremities: Normal Inspection, Non-Tender, No Pedal Edema Skin: Warm, Dry, Intact Neurological: No New Focal Deficit Psy/Mental Status: Alert, Normal Affect, Normal Mood - Problem List & Annotations (1) Atrial fibrillation SNOMED Code(s): 14933818 Code(s): I48.91 - UNSPECIFIED ATRIAL FIBRILLATION Status: Acute Priority : High Current Visit: Yes Qualifiers: Atrial fibrillation type: chronic Qualified Code(s): I48.2 - Chronic atrial fibrillation Annotation/Comment:: Refractory recurrent atrial fibrillation with current rapid ventricle response, however overall good response to low-dose IV Lopressor in the emergency room. Continue medication adjustment during this hospitalization. 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 In addition, note previous unsuccessful cardiac ablation as above (2) Atypical chest pain SNOMED Code(s): 918082427 Code(s): R07.89 - OTHER CHEST PAIN Status: Acute Priority: High Current Visit: Yes Onset Date: 11/08/17 Annotation/Comment:: Somewhat atypical chest pain and anginal type symptoms with chest pain protocol initiated immediately upon patient's arrival to the emergency room. Note recent negative heart catheterization on 10/20/17. Initiate standard rule out [place] orders. Cardiology consultation depending on his clinical course. ASA and Plavix were not given secondary to his current Eliquis therapy. (3) Hypoalbuminemia SNOMED Code(s): 149911402 Code(s): E88.09 - OTH DISORDERS OF PLASMA-PROTEIN METABOLISM, NEC Status: Acute Priority: Medium Current Visit: Yes Onset Date: 11/08/17 Annotation/Comment:: Consider high-protein Glucerna supplements, however previous history of hyperproteinemia secondary to his monoclonal gammopathy (4) Leukocytosis SNOMED Code(s): 658356983 Code(s): D72.829 - ELEVATED WHITE BLOOD CELL COUNT, UNSPECIFIED Status: Acute Priority: Medium Current Visit: Yes Onset Date: 11/08/17 Qualifiers: Leukocytosis type: bandemia Qualified Code(s): D72.825 - Bandemia Annotation/Comment:: Mild leukocytosis likely secondary to stress reaction with no recent history of fever, UTI symptoms, evidence of recurrence of his recurrent diverticulitis, etc. Urine specimen to be obtained shortly after admission. (5) Gastroesophageal reflux disease SNOMED Code(s): 638295876 Code(s): K21.9 - GASTRO-ESOPHAGEAL REFLUX DISEASE WITHOUT ESOPHAGITIS Status: Chronic Priority: Medium Current Visit: Yes Qualifiers: Esophagitis presence: without esophagitis Qualified Code(s): K21.9 - Gastro -esophageal reflux disease without esophagitis Annotation/Comment:: Stable by history with high-dose IV Pepcid given as GI prophylaxis (6) Hyperlipidemia SNOMED Code(s): 93937592 Code(s): E78.5 - HYPERLIPIDEMIA, UNSPECIFIED Status: Chronic Priority: Medium Current Visit: Yes Qualifiers: Hyperlipidemia type: unspecified Qualified Code(s): E78.5 - Hyperlipidemia , unspecified Annotation/Comment:: Lipid panel and glycosylated hemoglobin in the a.m. (7) Hypertension SNOMED Code(s): 77590705 Code(s): I10 - ESSENTIAL (PRIMARY) HYPERTENSION Status: Chronic Priority : Medium Current Visit: Yes Qualifiers: Hypertension type: essential hypertension Qualified Code(s): I10 - Essential (primary) hypertension Annotation/Comment:: Blood pressure mildly elevated initially in the emergency room. Continue to observe closely with medication adjustments as needed (8) Monoclonal gammopathy SNOMED Code(s): 857537980 Code(s): D47.2 - MONOCLONAL GAMMOPATHY Status: Chronic Priority: Medium Current Visit: Yes Annotation/Comment:: Stable by patient history with close follow-up by [facility] oncology in [place] with next appointment in March by patient history (9) Osteoarthritis SNOMED Code(s): 931041400 Code(s): M19.90 - UNSPECIFIED OSTEOARTHRITIS, UNSPECIFIED SITE Status: Chronic Priority: Medium Current Visit: Yes Qualifiers: Osteoarthritis location: multiple joints Osteoarthritis type: primary Qualified Code(s): M15.0 - Primary generalized (osteo)arthritis Annotation/Comment:: Stable by patient history (10) Renal insufficiency SNOMED Code(s): 789187560 Code(s): N28.9 - DISORDER OF KIDNEY AND URETER, UNSPECIFIED Status: Chronic Priority: Medium Current Visit: Yes Annotation/Comment:: Stable by patient history with close follow-up by nephrology in [place] with next appointment on 11/16/17 by patient history - Problem List Review Problem List Initiated/Reviewed/Updated: Yes - My Orders Last 24 Hours: My Active Orders 11/09/17 15:19 EKG Documentation Completion [RC] ASDIRECTED 11/09/17 20:00 Apixaban [Eliquis] 5 mg PO Q12HR Metoprolol Succinate [Toprol XL] 50 mg PO Q12HR Sodium Chloride 0.9% [Saline Flush] 10 ml FLUSH Q12HR 11/10/17 05:11 EKG Documentation Completion [RC] ASDIRECTED Chest 2V [CR] Routine BLOOD GAS VENOUS [BG] Routine CBC WITH AUTO DIFF [HEME] DAILY CMP [COMPREHENSIVE METABOLIC PN,CMP] [CHEM] DAILY EKG 12 Lead [EK] Routine 11/10/17 08:00 Flecainide [Tambocor] 50 mg PO BID 11/11/17 05:11 CBC WITH AUTO DIFF [HEME] DAILY CMP [COMPREHENSIVE METABOLIC PN,CMP] [CHEM] DAILY 11/12/17 05:11 CBC WITH AUTO DIFF [HEME] DAILY CMP [COMPREHENSIVE METABOLIC PN,CMP] [CHEM] DAILY - Plan Plan:: 11/09/17 Bryanna Goodson MD Feels okay but just laying in bed. I called [facility] ~1640. Talked with Norma, and Dr. Bustamante. Recommend Increase metoprolol and continue to monitor. Telemetry strip from 1:00am showing second degree AV block Mobitz Type I. Junctional rhythm on EKG.
[2017-11-09] MEDS ORDERED: Flecainide 100 MG Tab PO SCH (20:00)
[2017-11-09] MEDS: Sodium Chloride 0.9% 10 ML Syringe FLUSH SCH (21:17)
[2017-11-09] MEDS: Cyanocobalamin (Vitamin B12) 1,000 MCG Tab PO SCH (21:18)
[2017-11-09] MEDS: Metoprolol Succinate 50 MG Tab.ER PO SCH (21:21)
[2017-11-09] MEDS: Latanoprost 0.005% Ophth Soln 2.5 ML Bottle EYEBOTH SCH (21:23)
[2017-11-09] MEDS: Temazepam 15 MG Cap PO PRN (21:28)
[2017-11-10 07:15] LABS: O2 DELIVERY DEVICE ROOM AIR
[2017-11-10] MEDS: Flecainide 100 MG Tab PO SCH ×2 (07:29→17:02)
[2017-11-10] MEDS: Metoprolol Succinate 50 MG Tab.ER PO SCH (07:29)
[2017-11-10] MEDS: Apixaban 5 MG Tab PO SCH (07:29)
[2017-11-10] MEDS: Sodium Chloride 0.9% 10 ML Syringe FLUSH SCH (07:29)
[2017-11-10] MEDS: Simvastatin 10 MG Tab PO SCH (07:30)
[2017-11-10 07:49] LABS: CHLORIDE,CL 102 mmol/L (98-107); SODIUM,NA 136 mmol/L (136-145)
[2017-11-10 08:10] LABS: BASE EXCESS VENOUS 8 mmol/L ((-2)-3); BICARBONATE,VENOUS 33 mmol/L (23-28); O2 SATURATION VENOUS 98 %; PCO2 VENOUS 52 mmHG (41-51); PH,VENOUS 7.41 (7.31-7.41); PO2 VENOUS 116 mmHG
[2017-11-10] MEDS: Acetaminophen 325 MG Tab PO PRN (12:46)
[2017-11-10 16:09] VITALS: BP 96/66
--- NOTE | 2017-11-10 17:14 | PCM.PN ---
- General Info Date of Service: 11/10/17 Functional Status: Reports: Pain Controlled - Review of Systems General: Reports: No Symptoms HEENT: Reports: Headaches Pulmonary: Reports: No Symptoms Cardiovascular: Reports: Lightheadedness Gastrointestinal: Reports: No Symptoms Genitourinary: Reports: No Symptoms Musculoskeletal: Reports: No Symptoms Skin: Reports: No Symptoms Neurological: Reports: Dizziness Psychiatric: Reports: No Symptoms - Patient Data Vitals - Most Recent: Last Vital Signs Temp 98.1 F 11/10/17 16:00 Pulse 118 H 11/10/17 16:00 Resp 16 11/10/17 16:00 BP 96/66 11/10/17 16:00 Pulse Ox 95 11/10/17 16:00 Weight - Most Recent: 190 lb 1.6 oz I&O - Last 24 Hours: Intake & Output 11/10/17 11/10/17 11/10/17 06:59 14:59 22:59 Intake Total 1100 Output Total 600 Balance 500 Lab Results Last 24 Hours: Laboratory Results - last 24 hr 11/10/17 11/10/17 11/10/17 Range/Units 07:10 07:10 07:10 WBC 10.9 H (4.0-10.2) K/uL RBC 5.11 (4.33-5.41) M/uL Hgb 15.8 (13.1-16.8) g/dL Hct 45.5 (39.0-49.0) % MCV 89.0 (84.0-98.0) fL MCH 30.9 (28.2-33.3) pg MCHC 34.7 (31.7-36.0) g/dL RDW 13.7 (11.2-14.1) % Plt Count 284 (150-350) K/uL Neut % (Auto) 49.5 (45.0-80.0) % Lymph % (Auto) 37.8 (10.0-50.0) % [place] % (Auto) 8.5 (2.0-14.0) % Eos % (Auto) 3.3 (0.0-5.0) % Baso % (Auto) 0.9 (0.0-2.0) % Neut # (Auto) 5.38 (1.40-7.00) K/uL Lymph # (Auto) 4.11 H (0.50-3.50) K/uL [place] # (Auto) 0.92 (0.00-1.00) K/uL Eos # (Auto) 0.36 (0.00-0.50) K/uL Baso # (Auto) 0.10 (0.00-0.20) K/uL VBG pH 7.41 (7.31-7.41) VBG pCO2 52 H (41-51) mmHG VBG pO2 116 mmHG VBG HCO3 33 H (23-28) mmol/L VBG Total CO2 34 mmol/L VBG O2 Saturation 98 % VBG Base Excess 8 H ((-2)-3) mmol/L O2 Delivery Device Room air Sodium 136 (136-145) mmol/L Potassium 4.2 (3.5-5.1) mmol/L Chloride 102 (98-107) mmol/L Carbon Dioxide 27.9 (21.0-32.0) mmol/L BUN 18 (7-18) mg/dL Creatinine 1.19 H (0.51-1.17) mg/dL Est Cr Clr Drug Dosing 62.71 mL/min Estimated GFR (MDRD) > 60 mL/min Glucose 102 (74-106) mg/dL Calcium 9.2 (8.5-10.1) mg/dL Total Bilirubin 1.6 H (0.2-1.0) mg/dL AST 24 (15-37) U/L ALT 32 (12-78) U/L Alkaline Phosphatase 76 (46-116) IU/L Total Protein 7.4 (6.4-8.2) g/dL Albumin 2.4 L (3.4-5.0) g/dL Jon Results Last 24 Hours: Microbiology 11/09/17 18:30 Stool Occult Blood (JON) - Final Stool / Feces NEGATIVE OCCULT BLOOD 11/08/17 17:30 Urine Culture - Final Urine, Clean Catch NO GROWTH AFTER 2 DAYS Med Orders - Current: Current Medications Acetaminophen (Tylenol) 650 mg PO Q4H PRN PRN Reason: Pain Last Admin: 11/10/17 12:46 Dose: 650 mg Apixaban (Eliquis) 5 mg PO Q12HR [facility] Last Admin: 11/10/17 07:29 Dose: 5 mg Cyanocobalamin (Vitamin B12) 1,000 mcg PO BEDTIME [facility] Last Admin: 11/09/17 21:18 Dose: 1,000 mcg Flecainide Acetate (Tambocor) 50 mg PO BID [facility] Last Admin: 11/10/17 17:02 Dose: 50 mg Latanoprost (Xalatan 0.005% Ophth Soln) 0 ml EYEBOTH BEDTIME [facility] Last Admin: 11/09/17 21:23 Dose: 1 drop Metoprolol Succinate (Toprol Xl) 50 mg PO Q12HR [facility] Last Admin: 11/10/17 07:29 Dose: 50 mg Mometasone Furoate (Asmanex Hfa 100mcg) 0 gm INH BID PRN PRN Reason: asthma Non-Formulary Medication (Rizatriptan [Maxalt]) 10 mg PO DAILY PRN PRN Reason: Migraine Non-Formulary Medication (Zolmitriptan [Zolmitriptan Odt]) 5 mg PO ASDIRECTED PRN PRN Reason: migraine Simvastatin (Zocor) 10 mg PO QAM [facility] Last Admin: 11/10/17 07:30 Dose: 10 mg Sodium Chloride (Saline Flush) 10 ml FLUSH ASDIRECTED PRN PRN Reason: Keep Vein Open Last Admin: 11/09/17 04:19 Dose: 10 ml Sodium Chloride (Saline Flush) 10 ml FLUSH Q12HR [facility] Last Admin: 11/10/17 07:29 Dose: 10 ml Temazepam (Restoril) 15 mg PO BEDTIME PRN PRN Reason: Insomnia Last Admin: 11/09/17 21:28 Dose: 15 mg Discontinued Medications Amlodipine Besylate (Norvasc) 5 mg PO BEDTIME [facility] Last Admin: 11/08/17 19:29 Dose: 5 mg Apixaban (Eliquis) 5 mg PO BID [facility] Last Admin: 11/09/17 07:55 Dose: 5 mg Famotidine (Pepcid) 40 mg IVPUSH ONETIME ONE Stop: 11/08/17 15:47 Last Admin: 11/08/17 16:05 Dose: 40 mg Flecainide Acetate (Tambocor) 50 mg PO BID@0800,1800 [facility] Last Admin: 11/09/17 07:58 Dose: 50 mg Flecainide Acetate (Tambocor) 50 mg PO ONETIME ONE Stop: 11/09/17 10:16 Last Admin: 11/09/17 10:51 Dose: 50 mg Flecainide Acetate (Tambocor) 100 mg PO Q12HR [facility] Furosemide (Lasix) 40 mg IVPUSH Q12H [facility] Last Admin: 11/09/17 04:19 Dose: 40 mg Metoprolol Succinate (Toprol Xl) 50 mg PO ONETIME ONE Stop: 11/08/17 17:39 Last Admin: 11/08/17 18:08 Dose: 50 mg Metoprolol Succinate (Toprol Xl) 50 mg PO BID [facility] Last Admin: 11/09/17 07:59 Dose: 50 mg Metoprolol Succinate (Toprol Xl) 50 mg PO BEDTIME [facility] Metoprolol Tartrate (Lopressor) 2.5 mg IVPUSH ONETIME ONE Stop: 11/08/17 15:47 Last Admin: 11/08/17 16:05 Dose: 2.5 mg Metoprolol Tartrate (Lopressor) 5 mg IVPUSH ONETIME ONE Stop: 11/08/17 22:07 Last Admin: 11/08/17 22:20 Dose: 5 mg Potassium Chloride (Klor-Con M20) 20 meq PO BID [facility] Last Admin: 11/09/17 08:03 Dose: 20 meq Sodium Chloride (Saline Flush) 10 ml FLUSH Q12HR PRN PRN Reason: Keep Vein Open - Exam General: Alert, Oriented, Cooperative, No Acute Distress HEENT: Pupils Equal, Pupils Reactive, EOMI, Mucous Membr. Moist/[place] Neck: Supple, Trachea Midline, No JVD Lungs: Clear to Auscultation, Normal Respiratory Effort Cardiovascular: Irregular Rhythm GI/Abdominal Exam: Normal Bowel Sounds, Soft, Non-Tender, No Organomegaly, No Distention, No Abnormal Bruit, No Mass, Pelvis Stable (Male) Exam: Deferred Back Exam: Normal Inspection, Full Range of Motion Extremities: Normal Inspection, Non-Tender, No Pedal Edema Skin: Warm, Dry, Intact Neurological: No New Focal Deficit Psy/Mental Status: Alert, Normal Affect, Normal Mood - Problem List & Annotations (1) Atrial fibrillation SNOMED Code(s): 92929080 Code(s): I48.91 - UNSPECIFIED ATRIAL FIBRILLATION Status: Acute Priority : High Current Visit: Yes Qualifiers: Atrial fibrillation type: chronic Qualified Code(s): I48.2 - Chronic atrial fibrillation Annotation/Comment:: Refractory recurrent atrial fibrillation with current rapid ventricle response, however overall good response to low-dose IV Lopressor in the emergency room. Continue medication adjustment during this hospitalization. Note recent initiation of flecainide by his ict security specialist. In addition, note previous unsuccessful cardiac ablation as above (2) Atypical chest pain SNOMED Code(s): 093469676 Code(s): R07.89 - OTHER CHEST PAIN Status: Acute Priority: High Current Visit: Yes Onset Date: 11/08/17 Annotation/Comment:: Somewhat atypical chest pain and anginal type symptoms with chest pain protocol initiated immediately upon patient's arrival to the emergency room. Note recent negative heart catheterization on 10/20/17. Initiate standard rule out OR orders. Cardiology consultation depending on his clinical course. ASA and Plavix were not given secondary to his current Eliquis therapy. 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 Urine specimen to be obtained shortly after admission. (5) Gastroesophageal reflux disease SNOMED Code(s): 787745968 Code(s): K21.9 - GASTRO-ESOPHAGEAL REFLUX DISEASE WITHOUT ESOPHAGITIS Status: Chronic Priority: Medium Current Visit: Yes Qualifiers: Esophagitis presence: without esophagitis Qualified Code(s): K21.9 - Gastro -esophageal reflux disease without esophagitis Annotation/Comment:: Stable by history with high-dose IV Pepcid given as GI prophylaxis (6) Hyperlipidemia SNOMED Code(s): 98593531 Code(s): E78.5 - HYPERLIPIDEMIA, UNSPECIFIED Status: Chronic Priority: Medium Current Visit: Yes Qualifiers: Hyperlipidemia type: unspecified Qualified Code(s): E78.5 - Hyperlipidemia , unspecified Annotation/Comment:: Lipid panel and glycosylated hemoglobin in the a.m. (7) Hypertension SNOMED Code(s): 35238419 Code(s): I10 - ESSENTIAL (PRIMARY) HYPERTENSION Status: Chronic Priority : Medium Current Visit: Yes Qualifiers: Hypertension type: essential hypertension Qualified Code(s): I10 - Essential (primary) hypertension Annotation/Comment:: Blood pressure mildly elevated initially in the emergency room. Continue to observe closely with medication adjustments as needed (8) Monoclonal gammopathy SNOMED Code(s): 247499942 Code(s): D47.2 - MONOCLONAL GAMMOPATHY Status: Chronic Priority: Medium Current Visit: Yes Annotation/Comment:: Stable by patient history with close follow-up by [facility] oncology in [place] with next appointment in March by patient history (9) Osteoarthritis SNOMED Code(s): 831092741 Code(s): M19.90 - UNSPECIFIED OSTEOARTHRITIS, UNSPECIFIED SITE Status: Chronic Priority: Medium Current Visit: Yes Qualifiers: Osteoarthritis location: multiple joints Osteoarthritis type: primary Qualified Code(s): M15.0 - Primary generalized (osteo)arthritis Annotation/Comment:: Stable by patient history (10) Renal insufficiency SNOMED Code(s): 665922873 Code(s): N28.9 - DISORDER OF KIDNEY AND URETER, UNSPECIFIED Status: Chronic Priority: Medium Current Visit: Yes Annotation/Comment:: Stable by patient history with close follow-up by nephrology in [place] with next appointment on 11/16/17 by patient history (11) Junctional cardiac arrhythmia SNOMED Code(s): 151009165 Code(s): I49.8 - OTHER SPECIFIED CARDIAC ARRHYTHMIAS Status: Acute Priority: High Current Visit: Yes (12) Second degree atrioventricular block, Mobitz type I SNOMED Code(s): 31851220 Code(s): I44.1 - ATRIOVENTRICULAR BLOCK, SECOND DEGREE Status: Acute Priority: High Current Visit: Yes - Problem List Review Problem List Initiated/Reviewed/Updated: Yes - My Orders Last 24 Hours: My Active Orders 11/09/17 20:00 Apixaban [Eliquis] 5 mg PO Q12HR Metoprolol Succinate [Toprol XL] 50 mg PO Q12HR Sodium Chloride 0.9% [Saline Flush] 10 ml FLUSH Q12HR 11/10/17 05:11 EKG Documentation Completion [RC] ASDIRECTED Chest 2V [CR] Routine 11/10/17 08:00 Flecainide [Tambocor] 50 mg PO BID 11/10/17 12:20 EKG Documentation Completion [RC] ASDIRECTED 11/10/17 17:01 Discontinue Telemetry Monitoring [Cardiac Monitoring Discontinue] [RC] Click to Edit Peripheral IV Discontinue [OM.PC] Routine 11/10/17 17:04 Ready for Discharge [RC] PER UNIT ROUTINE 11/11/17 05:11 CBC WITH AUTO DIFF [HEME] DAILY CMP [COMPREHENSIVE METABOLIC PN,CMP] [CHEM] DAILY 11/12/17 05:11 CBC WITH AUTO DIFF [HEME] DAILY CMP [COMPREHENSIVE METABOLIC PN,CMP] [CHEM] DAILY - Plan Plan:: 11/09/17 Bryanna Goodson MD Feels okay but just laying in bed. I called [facility] ~[phone]. Talked with Norma, and Dr. Bustamante. Recommend Increase metoprolol and continue to monitor. Telemetry strip from 1:00am showing second degree AV block Mobitz Type I. Junctional rhythm on EKG. 11/10/17 Bryanna Goodson MD Feels a little better. Still some lightheadedness, dizziness, headache especially when he changes position. No chest pain. No shortness of breath. Telemetry strips reviewed. No major change in rhythm. Has follow up appointment with [facility] Cardiology in clinic as recommended.
--- NOTE | 2017-11-10 17:21 | PCM.DCSUM1 ---
Discharge Summary - Discharge Data Discharge Date: 11/10/17 Discharge Disposition: Home, Self-Care 01 Condition: Good - Discharge Diagnosis/Problem(s) (1) Atrial fibrillation SNOMED Code(s): 45096342 ICD Code: I48.91 - UNSPECIFIED ATRIAL FIBRILLATION Status: Acute Priority : High Current Visit: Yes Problem Details: Refractory recurrent atrial fibrillation with current rapid ventricle response, however overall good response to low-dose IV Lopressor in the emergency room. Continue medication adjustment during this hospitalization. Note recent initiation of flecainide by his records tech. In addition, note previous unsuccessful cardiac ablation as above Qualifiers: Atrial fibrillation type: chronic Qualified Code(s): I48.2 - Chronic atrial fibrillation (2) Atypical chest pain SNOMED Code(s): 998462566 ICD Code: R07.89 - OTHER CHEST PAIN Status: Acute Priority: High Current Visit: Yes Onset Date: 11/08/17 Problem Details: Somewhat atypical chest pain and anginal type symptoms with chest pain protocol initiated immediately upon patient's arrival to the emergency room. Note recent negative heart catheterization on 10/20/17. Initiate standard rule out [place] orders. Cardiology consultation depending on his clinical course. ASA and Plavix were not given secondary to his current Eliquis therapy. 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 Urine specimen to be obtained shortly after admission. Qualifiers: Leukocytosis type: bandemia Qualified Code(s): D72.825 - Bandemia (5) Gastroesophageal reflux disease SNOMED Code(s): 969512895 ICD Code: K21.9 - GASTRO-ESOPHAGEAL REFLUX DISEASE WITHOUT ESOPHAGITIS Status: Chronic Priority: Medium Current Visit: Yes Problem Details: Stable by history with high-dose IV Pepcid given as GI prophylaxis Qualifiers: Esophagitis presence: without esophagitis Qualified Code(s): K21.9 - Gastro -esophageal reflux disease without esophagitis (6) Hyperlipidemia SNOMED Code(s): 96322897 ICD Code: E78.5 - HYPERLIPIDEMIA, UNSPECIFIED Status: Chronic Priority: Medium Current Visit: Yes Problem Details: Lipid panel and glycosylated hemoglobin in the a.m. Qualifiers: Hyperlipidemia type: unspecified Qualified Code(s): E78.5 - Hyperlipidemia , unspecified (7) Hypertension SNOMED Code(s): 51196173 ICD Code: I10 - ESSENTIAL (PRIMARY) HYPERTENSION Status: Chronic Priority : Medium Current Visit: Yes Problem Details: Blood pressure mildly elevated initially in the emergency room. Continue to observe closely with medication adjustments as needed Qualifiers: Hypertension type: essential hypertension Qualified Code(s): I10 - Essential (primary) hypertension (8) Monoclonal gammopathy SNOMED Code(s): 451177403 ICD Code: D47.2 - MONOCLONAL GAMMOPATHY Status: Chronic Priority: Medium Current Visit: Yes Problem Details: Stable by patient history with close follow-up by [facility] oncology in [place] with next appointment in March by patient history (9) Osteoarthritis SNOMED Code(s): 755305886 ICD Code: M19.90 - UNSPECIFIED OSTEOARTHRITIS, UNSPECIFIED SITE Status: Chronic Priority: Medium Current Visit: Yes Problem Details: Stable by patient history Qualifiers: Osteoarthritis location: multiple joints Osteoarthritis type: primary Qualified Code(s): M15.0 - Primary generalized (osteo)arthritis (10) Renal insufficiency SNOMED Code(s): 498149346 ICD Code: N28.9 - DISORDER OF KIDNEY AND URETER, UNSPECIFIED Status: Chronic Priority: Medium Current Visit: Yes Problem Details: Stable by patient history with close follow-up by nephrology in [place] with next appointment on 11/16/17 by patient history (11) Junctional cardiac arrhythmia SNOMED Code(s): 465154411 ICD Code: I49.8 - OTHER SPECIFIED CARDIAC ARRHYTHMIAS Status: Acute Priority: High Current Visit: Yes (12) Second degree atrioventricular block, Mobitz type I SNOMED Code(s): 18762072 ICD Code: I44.1 - ATRIOVENTRICULAR BLOCK, SECOND DEGREE Status: Acute Priority: High Current Visit: Yes - Patient Instructions Diet: Heart Healthy Diet Activity: As Tolerated, Rest and Relax Today Driving: May Drive Today Other/Special Instructions: Keep your appointments already scheduled at [facility] with nephrology and cardiology. - Discharge Plan Prescriptions/Med Rec: Metoprolol Succinate [Toprol XL 50mg] 50 mg PO Q12HR #180 tab.er Home Medications: Home Meds Omeprazole 20 mg PO BID 07/13/14 [History] Rizatriptan [Maxalt] 10 mg PO DAILY PRN 07/13/14 [History] Simvastatin 10 mg PO QAM 07/13/14 [History] Fluticasone Propionate [Flovent] 100 mcg IH BID PRN 05/28/15 [History] Apixaban [Eliquis] 5 mg PO BID 04/16/17 [History] Cyanocobalamin (Vitamin B-12) [B-12] 1,000 mcg PO BEDTIME 04/16/17 [History] Latanoprost [Xalatan 0.005% Ophth Soln] 1 drop EYEBOTH BEDTIME 04/16/17 [History ] Flecainide [Tambocor] 50 mg PO BID@0800,1800 11/08/17 [History] ZOLMitriptan [Zolmitriptan Odt] 5 mg PO ASDIRECTED PRN 11/08/17 [History] Metoprolol Succinate [Toprol XL 50mg] 50 mg PO Q12HR #180 tab.er 11/10/17 [Rx] Patient Handouts: Heart Failure, [id number] Forms: ED Department Discharge Referrals: Opal Dale NP [Primary Care Provider] - - Discharge Summary/Plan Comment DC Time >30 min.: No Discharge Summary/Plan Comment: 11/10/17 Bryanna Goodson MD 62 year old, gentleman came to ER with palpatations, lightheadedness, dizziness , nausea. PMH significant for chronic atrial fibrillation, s/p ablation, EF 50- 55%, recent angiogram no major coronary artery disease, recently started on flecanaide which he thinks is causing headache, nausea. Hospitalized and monitored on telemetry. Junctional rhythm, atrial fibrillation, possible second degree A-V block Mobitz Type I. [facility] cardiology recommended to increase metoprolol and have him follow up in the clinic. - Patient Data Vitals - Most Recent: Last Vital Signs Temp 98.1 F 11/10/17 16:00 Pulse 118 H 11/10/17 16:00 Resp 16 11/10/17 16:00 BP 96/66 11/10/17 16:00 Pulse Ox 95 11/10/17 16:00 Weight - Most Recent: 190 lb 1.6 oz I&O - Last 24 hours: Intake & Output 11/10/17 11/10/17 11/10/17 06:59 14:59 22:59 Intake Total 1100 Output Total 600 Balance 500 Lab Results - Last 24 hrs: Laboratory Results - last 24 hr 11/10/17 11/10/17 11/10/17 Range/Units 07:10 07:10 07:10 WBC 10.9 H (4.0-10.2) K/uL RBC 5.11 (4.33-5.41) M/uL Hgb 15.8 (13.1-16.8) g/dL Hct 45.5 (39.0-49.0) % MCV 89.0 (84.0-98.0) fL MCH 30.9 (28.2-33.3) pg MCHC 34.7 (31.7-36.0) g/dL RDW 13.7 (11.2-14.1) % Plt Count 284 (150-350) K/uL Neut % (Auto) 49.5 (45.0-80.0) % Lymph % (Auto) 37.8 (10.0-50.0) % [place] % (Auto) 8.5 (2.0-14.0) % Eos % (Auto) 3.3 (0.0-5.0) % Baso % (Auto) 0.9 (0.0-2.0) % Neut # (Auto) 5.38 (1.40-7.00) K/uL Lymph # (Auto) 4.11 H (0.50-3.50) K/uL [place] # (Auto) 0.92 (0.00-1.00) K/uL Eos # (Auto) 0.36 (0.00-0.50) K/uL Baso # (Auto) 0.10 (0.00-0.20) K/uL VBG pH 7.41 (7.31-7.41) VBG pCO2 52 H (41-51) mmHG VBG pO2 116 mmHG VBG HCO3 33 H (23-28) mmol/L VBG Total CO2 34 mmol/L VBG O2 Saturation 98 % VBG Base Excess 8 H ((-2)-3) mmol/L O2 Delivery Device Room air Sodium 136 (136-145) mmol/L Potassium 4.2 (3.5-5.1) mmol/L Chloride 102 (98-107) mmol/L Carbon Dioxide 27.9 (21.0-32.0) mmol/L BUN 18 (7-18) mg/dL Creatinine 1.19 H (0.51-1.17) mg/dL Est Cr Clr Drug Dosing 62.71 mL/min Estimated GFR (MDRD) > 60 mL/min Glucose 102 (74-106) mg/dL Calcium 9.2 (8.5-10.1) mg/dL Total Bilirubin 1.6 H (0.2-1.0) mg/dL AST 24 (15-37) U/L ALT 32 (12-78) U/L Alkaline Phosphatase 76 (46-116) IU/L Total Protein 7.4 (6.4-8.2) g/dL Albumin 2.4 L (3.4-5.0) g/dL AMBER Results - Last 24 hrs: Microbiology 11/09/17 18:30 Stool Occult Blood (AMBER) - Final Stool / Feces NEGATIVE OCCULT BLOOD 11/08/17 17:30 Urine Culture - Final Urine, Clean Catch NO GROWTH AFTER 2 DAYS Med Orders - Current: Current Medications Acetaminophen (Tylenol) 650 mg PO Q4H PRN PRN Reason: Pain Last Admin: 11/10/17 12:46 Dose: 650 mg Apixaban (Eliquis) 5 mg PO Q12HR [facility] Last Admin: 11/10/17 07:29 Dose: 5 mg Cyanocobalamin (Vitamin B12) 1,000 mcg PO BEDTIME [facility] Last Admin: 11/09/17 21:18 Dose: 1,000 mcg Flecainide Acetate (Tambocor) 50 mg PO BID [facility] Last Admin: 11/10/17 17:02 Dose: 50 mg Latanoprost (Xalatan 0.005% Ophth Soln) 0 ml EYEBOTH BEDTIME [facility] Last Admin: 11/09/17 21:23 Dose: 1 drop Metoprolol Succinate (Toprol Xl) 50 mg PO Q12HR [facility] Last Admin: 11/10/17 07:29 Dose: 50 mg Mometasone Furoate (Asmanex Hfa 100mcg) 0 gm INH BID PRN PRN Reason: asthma Non-Formulary Medication (Rizatriptan [Maxalt]) 10 mg PO DAILY PRN PRN Reason: Migraine Non-Formulary Medication (Zolmitriptan [Zolmitriptan Odt]) 5 mg PO ASDIRECTED PRN PRN Reason: migraine Simvastatin (Zocor) 10 mg PO QAM [facility] Last Admin: 11/10/17 07:30 Dose: 10 mg Sodium Chloride (Saline Flush) 10 ml FLUSH ASDIRECTED PRN PRN Reason: Keep Vein Open Last Admin: 11/09/17 04:19 Dose: 10 ml Sodium Chloride (Saline Flush) 10 ml FLUSH Q12HR [facility] Last Admin: 11/10/17 07:29 Dose: 10 ml Temazepam (Restoril) 15 mg PO BEDTIME PRN PRN Reason: Insomnia Last Admin: 11/09/17 21:28 Dose: 15 mg Discontinued Medications Amlodipine Besylate (Norvasc) 5 mg PO BEDTIME [facility] Last Admin: 11/08/17 19:29 Dose: 5 mg Apixaban (Eliquis) 5 mg PO BID [facility] Last Admin: 11/09/17 07:55 Dose: 5 mg Famotidine (Pepcid) 40 mg IVPUSH ONETIME ONE Stop: 11/08/17 15:47 Last Admin: 11/08/17 16:05 Dose: 40 mg Flecainide Acetate (Tambocor) 50 mg PO BID@0800,1800 [facility] Last Admin: 11/09/17 07:58 Dose: 50 mg Flecainide Acetate (Tambocor) 50 mg PO ONETIME ONE Stop: 11/09/17 10:16 Last Admin: 11/09/17 10:51 Dose: 50 mg Flecainide Acetate (Tambocor) 100 mg PO Q12HR [facility] Furosemide (Lasix) 40 mg IVPUSH Q12H [facility] Last Admin: 11/09/17 04:19 Dose: 40 mg Metoprolol Succinate (Toprol Xl) 50 mg PO ONETIME ONE Stop: 11/08/17 17:39 Last Admin: 11/08/17 18:08 Dose: 50 mg Metoprolol Succinate (Toprol Xl) 50 mg PO BID [facility] Last Admin: 11/09/17 07:59 Dose: 50 mg Metoprolol Succinate (Toprol Xl) 50 mg PO BEDTIME [facility] Metoprolol Tartrate (Lopressor) 2.5 mg IVPUSH ONETIME ONE Stop: 11/08/17 15:47 Last Admin: 11/08/17 16:05 Dose: 2.5 mg Metoprolol Tartrate (Lopressor) 5 mg IVPUSH ONETIME ONE Stop: 11/08/17 22:07 Last Admin: 11/08/17 22:20 Dose: 5 mg Potassium Chloride (Klor-Con M20) 20 meq PO BID [facility] Last Admin: 11/09/17 08:03 Dose: 20 meq Sodium Chloride (Saline Flush) 10 ml FLUSH Q12HR PRN PRN Reason: Keep Vein Open *Q Meaningful Use (DIS) - VTE *Q VTE Criteria *Q: - Stroke *Q Stroke Criteria *Q: - AMI *Q AMI Criteria *Q:
[2017-11-10] MEDS ORDERED: Metoprolol Succinate 50 MG Tab.ER PO SCH (20:00)
== END 2017-11-10 15:45 | disposition home or self-care (01) | DRG 201 ==
LOC: LL.ED 15:34 → LL.MS 17:20
PROVIDERS: ADMIT Family Medicine; ATTEND Family Medicine
DX: I48.2 Chronic atrial fibrillation (principal); D47.2 Monoclonal gammopathy; I44.1 Atrioventricular block, second degree; I49.8 Other specified cardiac arrhythmias; D72.825 Bandemia; K21.9 Gastro-esophageal reflux disease without esophagitis; E78.5 Hyperlipidemia, unspecified; M19.90 Unspecified osteoarthritis, unspecified site; I13.0 Hypertensive heart and chronic kidney disease with heart failure and stage 1 through stage 4 chronic kidney disease, or unspecified chronic kidney disease; I50.9 Heart failure, unspecified; N18.3 Chronic kidney disease, stage 3 (moderate); J30.9 Allergic rhinitis, unspecified; H40.9 Unspecified glaucoma; J44.9 Chronic obstructive pulmonary disease, unspecified; K44.9 Diaphragmatic hernia without obstruction or gangrene; N40.0 Benign prostatic hyperplasia without lower urinary tract symptoms; G89.29 Other chronic pain; E53.8 Deficiency of other specified B group vitamins; D64.9 Anemia, unspecified; C90.00 Multiple myeloma not having achieved remission; Z91.013 Allergy to seafood; Z88.7 Allergy status to serum and vaccine; Z88.8 Allergy status to other drugs, medicaments and biological substances; Z91.018 Allergy to other foods; Z79.01 Long term (current) use of anticoagulants; Z79.899 Other long term (current) drug therapy
CPT/HCPCS: 36415; 71045; 71046; 80053; 80061; 81001; 82044; 82272; 82550; 82553; 82803; 83036; 83605; 83735; 83880; 84443; 84484; 84550; 85025; 85379; 85610; 85730; 87086; 87338; 93005; 96374; 96375; 99285; A9270-GY; J1940; J3490; J7050; S0028

== ENCOUNTER 2018-01-26 19:30 | Inpatient (IN) | payer BC ==
--- NOTE | 2018-01-26 19:46 | EDM.PDOC ---
ED HPI GENERAL MEDICAL PROBLEM - General Chief Complaint: Cardiovascular Problem Stated Complaint: racing heart hx A-fib Time Seen by Provider: 01/26/18 19:40 Source of Information: Reports: Patient, Family (), Old Records ([facility] chart/EMR), Other ([facility]. Limited records from [facility] from today's visit) History Limitations: Reports: No Limitations - History of Present Illness INITIAL COMMENTS - FREE TEXT/NARRATIVE: The patient was brought to the emergency room via private automobile by his for evaluation of refractory and recurrent atrial fibrillation with rapid ventricular response. The patient was hospitalized in this facility for a similar problem on 11/08/17 with questionable possible junctional arrhythmia and/ or developing borderline second-degree AV block at time of hospital discharge on 11/10/17. Per our medical records the catalyst recovery operator apparently recommended repeat increasing beta elmo therapy at that time. The patient has had extensive recent cardiac workup as below, including a recent negative heart catheterization. Note that the patient did have his third course of weekly chemotherapy for his multiple myeloma at [facility] today with junctional rhythm tachycardia/atrial fibrillation with EKG showing a pulse of 129 at that time. He was prescribed additional digoxin therapy at that time with 0.25 mg taken orally at about 17:00 hours this afternoon. The patient denies any chest pain/pressure, orthostasis, orthopnea, diaphoresis, paresthesias, recent decreased exercise tolerance, or any other anginal-type symptoms, although some mild dizziness since onset of his heart flutter at about 5 AM this morning. Patient did receive his chemotherapy today. No recent history of abdominal pain , heartburn, nausea, diarrhea, melena, gross hematochezia, or any food intolerance, including fatty foods, etc. with normal bowel movement yesterday. He denies any gross hematuria, colic, or other UTI symptoms. The patient also denies any recent fever, cough, wheezing, dyspnea, etc.. He denies any pain or discomfort. Onset: Today, Sudden Onset Date: 01/26/18 Onset Time: 05:00 Duration: Constant, Getting Worse Location: Reports: Other (No pain) Quality: Reports: Same as Previous Episode Improves with: Reports: None Worsens with: Reports: None Context: Reports: Other (As above) Associated Symptoms: Denies: Confusion, Chest Pain, Cough, Diaphoresis, Fever/ Chills, Headaches, Loss of Appetite, Malaise, Nausea/Vomiting, Rash, Shortness of Breath, Syncope, Weakness Treatments COMMUNICATIONS SUPERVISOR: Reports: Other Medication(s) (Digoxin as above) - Related Data Allergies Allergy/AdvReac Type Severity Reaction Status Date / Time ezetimibe [From Vytorin] Allergy Muscle Verified 01/26/18 19:50 Aches iodine Allergy Airway Verified 01/26/18 19:50 Tightness shellfish derived Allergy Airway Verified 01/26/18 19:50 Tightness Tetanus Vaccines and Toxoid Allergy Hives Verified 01/26/18 19:50 [Tetanus Vaccines & Toxoid] fish Allergy Intermediate Airway Uncoded 01/26/18 19:50 Tightness Home Meds: Home Meds Omeprazole 20 mg PO BID 07/13/14 [History] Rizatriptan [Maxalt] 10 mg PO DAILY PRN 07/13/14 [History] Simvastatin 10 mg PO QAM 07/13/14 [History] Fluticasone Propionate [Flovent] 100 mcg IH BID PRN 05/28/15 [History] Apixaban [Eliquis] 5 mg PO BID 04/16/17 [History] Cyanocobalamin (Vitamin B-12) [B-12] 1,000 mcg PO BEDTIME 04/16/17 [History] Latanoprost [Xalatan 0.005% Ophth Soln] 1 drop EYEBOTH BEDTIME 04/16/17 [History ] Flecainide [Tambocor] 50 mg PO BID@0800,1800 11/08/17 [History] ZOLMitriptan [Zolmitriptan Odt] 5 mg PO ASDIRECTED PRN 11/08/17 [History] Metoprolol Succinate [Toprol XL 50mg] 50 mg PO Q12HR #180 tab.er 11/10/17 [Rx] Past Medical History HEENT History: Reports: Allergic Rhinitis, Cataract, Glaucoma, Hard of Hearing, Impaired Vision, Other (See Below). Denies: Macular Degeneration, Retinal Detachment Other HEENT History: Pt wears glasses. Allergic rhinitis to pollen, pets, etc. Mild bilateral presbycusis with no current hearing aid therapy Cardiovascular History: Reports: Afib, Arrhythmia, Heart Failure, Heart Murmur, High Cholesterol, Hypertension, Other (See Below). Denies: Aneurysm, Blood Clots/VTE/DVT, CAD, RI Other Cardiovascular History: Chronic atrial fibrillation with current anticoagulation therapy and previous ablation as below however still refractory. First-degree AV block in the past with borderline junctional rhythm and possible intermittent second degree AV block on 11/10/17. Benign heart murmur as a child. Fatty liver secondary to hyperlipidemia. Respiratory History: Reports: Asthma, COPD, Intubation, Previous, Pulmonary Fibrosis, Other (See Below). Denies: PE, Pneumothorax, Sleep Apnea Other Respiratory History: Childhood asthma with additional COPD and pulmonary fibrosis Gastrointestinal History: Reports: Colon Polyp, Diverticulosis, Gastritis, GERD , Hemorrhoids, Hiatal Hernia, Other (See Below). Denies: Bowel Obstruction, Celiac Disease, Cholelithiasis, Chronic Constipation, Chronic Diarrhea, Fecal Incontinence, Hepatitis, Inflammatory Bowel Disease, Irritable Bowel Syndrome, Jaundice, Pancreatitis, PUD Other Gastrointestinal History: History of unknown type of benign distant colonic polyps. Recurrent diverticulitis including in April 2017, May 2015, July 2013 and May 2012 Genitourinary History: Reports: BPH, Chronic Renal Insuffiency, Other (See Below ). 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 Denies: Amputation, Fracture, Gout , RA, SLE Other Musculoskeletal History: Mild Scoliosis, mild grade 1 L5-S1 spondylolisthesis. Right distal biceps tendon tear diagnosed on 07/30/14 with repair as below Neurological History: Reports: Headaches, Chronic, Migraines. Denies: Cerebral Aneurysms, Concussion, CVA, MS, Neuropathy, Peripheral, Parkinson's, Seizure, TIA Psychiatric History: Reports: None. Denies: Abuse, Victim of, ADD, ADHD, Addiction, Anxiety, Dementia, Depression, Psych Hospitalization(s), PTSD, Suicide Attempt, Suicidal Ideation Endocrine/Metabolic History: Reports: None. Denies: Diabetes, Type I, Diabetes , Type II, Diabetes Mellitus, Type 3c, Hypothyroidism, IDDM Hematologic History: Reports: Anemia, B12 Deficiency, Iron Deficiency, Other ( See Below) Other Hematologic History: Multiple myeloma as below. Distant iron deficiency anemia requiring transfusions in his 20s Immunologic History: Reports: Immunosuppression, Other (See Below). Denies: AIDS, HIV, SLE Other Immunologic History: Multiple myeloma Oncologic (Cancer) History: Reports: Other (See Below). Denies: Basal Cell Carcinoma, Colon, Hodgkin's Lymphoma, Leukemia, Lymphoma, Malignant Melanoma, Non-Hodgkin's Lymphoma, Squamous Cell Carcinoma Other Oncologic History: multiple myeloma/monoclonal gammopathy initially diagnosed in 2008 with initiation of chemotherapy in January 2018 Dermatologic History: Reports: Angiodema, Eczema, Other (See Below) Other Dermatologic History: Eczema starting as a child. Angioedema, dyspnea, dysphagia with fish and iodine exposure - Infectious Disease History Infectious Disease History: Reports: Chicken Pox, Measles, Mumps, Shingles. Denies: C-Difficile, Meningitis, Mononucleosis, MRSA, Pertussis (Whooping Cough) , Rubella, Scarlet Fever, TB, VRE - Past Surgical History Head Surgeries/Procedures: Reports: None HEENT Surgical History: Reports: Cataract Surgery, Naso-Sinus Surgery, Oral Surgery, Other (See Below). Denies: Adenoidectomy, Eye Surgery, Laser Surgery, LASIK, Myringotomy w Tube(s), Tonsillectomy Other HEENT Surgeries/Procedures: Nasal surgery in his 30s. Bilateral cataract surgery with right sided surgery in 2015 with left-sided surgery in 2017. Multiple teeth extractions with complete upper dentures and partial lowers Cardiovascular Surgical History: Reports: Cardiac Ablation, Other (See Below). Denies: Coronary Artery Bypass, Pacer, Percutaneous Transluminal Angioplasty, Vascular Surgery Other Cardiovascular Surgeries/Procedures: Cardiac ablation on 09/14/2016 Respiratory Surgical History: Reports: None. Denies: Thoracentesis GI Surgical History: Reports: Colonoscopy, EGD, Polypectomy, Other (See Below). Denies: Appendectomy, Cholecystectomy, Hernia, Abdominal, Hernia, Inguinal, Hernia Repair/Other Other GI Surgeries/Procedures: Last EGD and colonoscopy on 04/21/17 with negative H. pylori biopsy at that time. Note distant polypectomy several years ago as above. Previous colonoscopy in July 2012. Male Surgical History: Reports: Circumcision, Other (See Below) Other Male Surgeries/Procedures: CT-guided renal biopsy on 12/08/17. Circumcision as an . Endocrine Surgical History: Reports: None. Denies: Thyroid Biopsy Neurological Surgical History: Reports: None. Denies: C-Spine, Discectomy, Laminectomy, Lumbar Spine, Sacral Spine, Spinal Fusion, Vertebroplasty Musculoskeletal Surgical History: Reports: Other (See Below) Other Musculoskeletal Surgeries/Procedures:: Right distal biceps tendon tear repair on 08/13/14 Oncologic Surgical History: Reports: Bone Marrow Aspiration, Other (See Below) Other Oncologic Surgeries/Procedures: Bone marrow needle aspiration biopsy at in November 2017 Dermatological Surgical History: Reports: Other (See Below) - Past Imaging History Past Imaging History: Reports: Angiography (Negative heart catheterization on ), Cardiac Echo (Last echocardiogram on 10/04/17 with ejection fraction of 50 -55% with stable findings from previous evaluations on 09/14/16 and 03/16/16), CAT Scan (CT guided renal biopsy on 12/08/17. Negative CTA of the chest on . CT of the abdomen and pelvis with contrast on 04/13/17, 05/28/15, 07/23/13, and 06/01/12. CT of the brain on 12/18/14), MRI (Right upper arm on 07/30/14), PFT (11/05/13), Stress Testing (Cardiolite stress test on 10/17/17 did indicate possible inferolateral cardiac ischemia with ejection fraction of 55% and recurrence of his atrial fibrillation), Ultrasound (Last renal ultrasound on 11/04 with previous abdominal ultrasound on 01/29/09 and renal ultrasound on ), Other (See Below) (Bone survey for his multiple myeloma on 01/15/14) Social & Family History - Family History HEENT: Reports: Impaired Vision, Other (See Below). Denies: Glaucoma, Macular Degeneration Other HEENT Family History: Father with diabetic retinopathy Cardiac: Reports: Bypass, CAD, Cardiomyopathy, Heart Failure, High Cholesterol, RI, PVD/COD, Stent, Other (See Below). Denies: Afib, Aneurysm, Arrhythmia, Blood Clots/VTE/DVT, Hypertension, Syncope Other Cardiac Family History: Father with history of recurrent MIs initially at about age 55 with history of CABG at that time. Paternal grandfather with fatal RI in his 70s. Mother with history of fatal CHF at age 80 with additional history of hyperlipidemia and carotid occlusive disease requiring surgery. Brother with no history of RI however total of 10 PTCA/stent placements since age 35 Respiratory: Reports: None. Denies: Asthma, COPD, PE, Pneumothorax, Sleep Apnea GI: Reports: Diverticulosis, Other (See Below). Denies: Celiac Disease, Colon Polyps, GERD, GI bleed, Inflammatory Bowel Disease, Irritable Bowel Syndrome, PUD Other GI Family History: mother with diverticulosis : Reports: Diabetic Nephropathy, Renal Disease/Insufficiency, Other (See Below ). Denies: Renal Calculus Other Family History: Father with diabetic nephropathy OBGYN: Reports: None. Denies: Endometriosis, Recurrent Spontaneous Musculoskeletal: Reports: None. Denies: Arthritis, Gout, RA, SLE Neurological: Reports: None. Denies: Alzheimers Disease, CVA, Dementia, Migraines, MS, Neuropathy, Diabetic, Neuropathy, Peripheral, Parkinson's, Seizure, TIA Psychiatric: Reports: Anxiety, Depression, Other (See Below). Denies: Abuse, Victim of, ADD, ADHD, Psych Hospitalization(s), PTSD, Suicide Attempt Other Psychiatric Family History: Father with anxiety depression disorder Endocrine/Metabolic: Reports: Diabetes, type II, IDDM, Other (See Below). Denies: Diabetes, Type I, Diabetes Mellitus, Type 3c, Hypothyroidism Other Endocrine/Metabolic Family History: IDDM in father and sister Hematologic: Reports: None. Denies: Anemia, Transfusion Reaction Immunologic: Reports: None. Denies: AIDS, HIV, SLE Dermatologic: Reports: None. Denies: Eczema, Psoriasis Oncologic: Reports: Breast, Other (See Below). Denies: Colon, Hodgkin's Lymphoma, Leukemia, Non-Hodgkin's Lymphoma, Prostate, Skin Other Oncologic Family History: Sister with breast cancer in her 60s - Tobacco Use Smoking Status *Q: Never Smoker Used Tobacco, but Quit: No Smoking Cessation Information Provided To Patient: No Second Hand Smoke Exposure: No Second Hand Smoke Education Provided: No - Caffeine Use Caffeine Use: Reports: Coffee (3 cups per day), Soda (1 soda per day). Denies: Energy Drinks, Tea - Alcohol Use Alcohol Use History: No Days Per Week of Alcohol Use: 0 (No previous DWIs, problems with alcohol abuse, etc.) Alcohol Use in Last Twelve Months: No - Recreational Drug Use Recreational Drug Use: No Drug Use in Last 12 Months: No Recreational Drug Type: Denies: Amphetamines (Speed), Cocaine, Heroin, Inhalants (Glues, Solvents, Aerosols), LSD (Acid), Marijuana/Hashish, Methamphetamine, Morphine, Oxycodone - Sexual History Sexual History: Reports: Sexually Active, Single Partner - Living Situation & Occupation Living situation: Reports: (1977, 2 children), with Family () 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 No: Hearing Grossly Normal Nose: Normal Inspection, Normal Mucosa, No Blood Throat/Mouth: Normal Lips, Normal Oropharynx, Normal Voice, No Airway Compromise. No: Normal Teeth (Complete upper dentures with partial lowers), Dysphagia, Inflammation, Perioral Cyanosis Head: Atraumatic, Normocephalic. No: Facial Swelling, Facial Tenderness, Sinus Tenderness Neck: Normal Inspection, Supple, Non-Tender, Full Range of Motion. No: Carotid Bruit, Lymphadenopathy (L), Lymphadenopathy (R), Thyromegaly Respiratory/Chest: No Respiratory Distress, No Accessory Muscle Use, Rales ( Mild bilateral basilar rales). No: Rhonchi, Wheezing, Pleural Rub, Retractions Cardiovascular: No Gallop, No JVD, No Murmur, No Rub, Tachycardia, Irregularly Irregular. No: No Edema (Mild dependent edema), Gallop/S3, Gallop/S4, Friction Rub Peripheral Pulses: 2+: Radial (L), Radial (R), Dorsalis Pedis (L), Dorsalis Pedis (R) GI/Abdominal: Normal Bowel Sounds, Soft, Non-Tender, No Organomegaly, No Distention, No Abnormal Bruit, No Mass, Pelvis Stable, Other (obese). No: Guarding (Male) Exam: Deferred Rectal (Males) Exam: Deferred Back Exam: Normal Inspection, Full Range of Motion. No: CVA Tenderness (L), CVA Tenderness (R), Muscle Spasm Extremities: Normal Range of Motion, Non-Tender, Normal Capillary Refill, Pedal Edema (Trace to +1 bilateral pedal edema). No: Rosina's Sign Neurological: Alert, Oriented, CN II-XII Intact, Normal Cognition, Normal Gait, Normal Reflexes (Negative Babinski's), No Motor/Sensory Deficits, Other (No clinical orthostasis) Psychiatric: Normal Affect, Normal Mood Skin Exam: Warm, Dry, Intact, Normal Color, No Rash. No: Diaphoretic, Wound/ Incision Lymphatic: No Adenopathy EKG INTERPRETATION EKG Date: 01/26/18 Time: 20:06 Rhythm: A-Fib Rate (Beats/Min): 101 [place]: Normal (Cardiac axis) P-Wave: Variable QRS: Normal (QRS interval of 0.08 seconds) ST-T: Other (nonspecific ST changes with recent digoxin therapy) QT: Normal [place]/PQ Interval: Variable Comparison: Change From Previous EKG (Improved tachycardia from EKG at [facility] earlier today) EKG Interpretation Comments: 1. No acute ischemic changes 2. Atrial fibrillation with rapid ventricular response Note that EKG was taken medially after administration of 10 mg of diltiazem IV in the emergency room Course - Vital Signs Last Recorded V/S: Last Vital Signs Temp 36.5 C 01/26/18 19:30 Pulse 92 01/26/18 20:22 Resp 18 01/26/18 20:22 BP 100/62 01/26/18 20:22 Pulse Ox 93 L 01/26/18 20:22 Vital Signs - 24 hr 01/26/18 01/26/18 01/26/18 19:30 19:50 20:05 Temperature [ 36.5 C Oral] Pulse, Peripheral Pulse, 128 H 128 H 128 H Peripheral [ Brachial] Respiratory 13 16 16 Rate Blood Pressure Blood Pressure 129/65 115/66 116/59 L [Upper Arm] O2 Sat by Pulse 96 97 93 L Oximetry 01/26/18 01/26/18 01/26/18 20:18 20:22 20:38 Temperature [ Oral] Pulse, 97 Peripheral Pulse, 92 86 Peripheral [ Brachial] Respiratory 18 18 Rate Blood Pressure 116/59 L Blood Pressure 100/62 104/56 L [Upper Arm] O2 Sat by Pulse 93 L 94 L Oximetry - Orders/Labs/Meds Orders: Active Orders 24 hr Category Date Time Status Cardiac Monitoring [RC] . DIRECTED Care 01/26/18 19:49 Active EKG Documentation Completion [RC] ASDIRECTED Care 01/26/18 19:49 Active Peripheral IV Care [RC] . DIRECTED Care 01/26/18 19:49 Active Pulse Oximetry [RC] CONTINUOUS Care 01/26/18 19:49 Active Up With Assistance [RC] PFP Care 01/26/18 19:49 Active Vital Signs [RC] PFP Care 01/26/18 19:49 Active Nothing per Oral Now Diet [DIET] Diet 01/26/18 Breakfast Active Chest 1V Frontal [CR] Stat Exams 01/26/18 19:49 Ordered Sodium Chloride 0.9% [Saline Flush] Med 01/26/18 19:49 Active 10 ml FLUSH ASDIRECTED PRN Obtain Past Medical Record [OM.PC] Urgent Oth 01/26/18 19:49 Active Peripheral IV Insertion Adult [OM.PC] Stat Oth 01/26/18 19:49 Ordered Resuscitation Status Stat Resus Stat 01/26/18 19:49 Ordered Medication Orders Sodium Chloride (Saline Flush) 10 ml FLUSH ASDIRECTED PRN PRN Reason: Keep Vein Open Last Admin: 01/26/18 20:03 Dose: 10 ml Labs: Laboratory Tests 01/26/18 01/26/18 01/26/18 Range/Units 20:00 20:00 20:00 WBC 14.9 H (4.0-10.2) K/uL RBC 4.94 (4.33-5.41) M/uL Hgb 15.3 (13.1-16.8) g/dL Hct 42.3 (39.0-49.0) % MCV 85.6 D (84.0-98.0) fL MCH 31.0 (28.2-33.3) pg MCHC 36.2 H (31.7-36.0) g/dL RDW 14.2 H (11.2-14.1) % Plt Count 277 (150-350) K/uL Neut % (Auto) 79.0 (45.0-80.0) % Lymph % (Auto) 19.8 (10.0-50.0) % [place] % (Auto) 1.0 L (2.0-14.0) % Eos % (Auto) 0.1 (0.0-5.0) % Baso % (Auto) 0.1 (0.0-2.0) % Neut # (Auto) 11.80 H (1.40-7.00) K/uL Lymph # (Auto) 2.96 (0.50-3.50) K/uL [place] # (Auto) 0.15 (0.00-1.00) K/uL Eos # (Auto) 0.01 (0.00-0.50) K/uL Baso # (Auto) 0.01 (0.00-0.20) K/uL PT 10.7 (9.8-11.7) SEC INR 1.0 APTT 26.8 (22.1-29.8) SEC D-Dimer, Quantitative 142 (0-400) ng/mL Sodium (136-145) mmol/L Potassium (3.5-5.1) mmol/L Chloride (98-107) mmol/L Carbon Dioxide (21.0-32.0) mmol/L BUN (7-18) mg/dL Creatinine (0.51-1.17) mg/dL Est Cr Clr Drug Dosing mL/min Estimated GFR (MDRD) mL/min Glucose (74-106) mg/dL Lactic Acid (0.4-2.0) mmol/L Uric Acid (2.6-7.2) mg/dL Calcium (8.5-10.1) mg/dL Magnesium (1.8-2.4) mg/dL Total Bilirubin (0.2-1.0) mg/dL AST (15-37) U/L ALT (12-78) U/L Alkaline Phosphatase (46-116) IU/L Creatine Kinase (26-308) U/L Creatine Kinase Index (0.0-2.5) % CK-MB (CK-2) (0.00-3.60) ng/mL Troponin I (0.000-0.056) ng/mL NT-Pro-B Natriuret Pep (0-125) pg/mL Total Protein (6.4-8.2) g/dL Albumin (3.4-5.0) g/dL TSH, Ultra Sensitive (0.358-3.740) mIU/mL 01/26/18 01/26/18 Range/Units 20:00 20:00 WBC (4.0-10.2) K/uL RBC (4.33-5.41) M/uL Hgb (13.1-16.8) g/dL Hct (39.0-49.0) % MCV (84.0-98.0) fL MCH (28.2-33.3) pg MCHC (31.7-36.0) g/dL RDW (11.2-14.1) % Plt Count (150-350) K/uL Neut % (Auto) (45.0-80.0) % Lymph % (Auto) (10.0-50.0) % [place] % (Auto) (2.0-14.0) % Eos % (Auto) (0.0-5.0) % Baso % (Auto) (0.0-2.0) % Neut # (Auto) (1.40-7.00) K/uL Lymph # (Auto) (0.50-3.50) K/uL [place] # (Auto) (0.00-1.00) K/uL Eos # (Auto) (0.00-0.50) K/uL Baso # (Auto) (0.00-0.20) K/uL PT (9.8-11.7) SEC INR APTT (22.1-29.8) SEC D-Dimer, Quantitative (0-400) ng/mL Sodium 134 L (136-145) mmol/L Potassium 4.2 (3.5-5.1) mmol/L Chloride 102 (98-107) mmol/L Carbon Dioxide 23.5 (21.0-32.0) mmol/L BUN 19 H (7-18) mg/dL Creatinine 1.05 (0.51-1.17) mg/dL Est Cr Clr Drug Dosing 71.07 mL/min Estimated GFR (MDRD) > 60 mL/min Glucose 164 H (74-106) mg/dL Lactic Acid 1.3 (0.4-2.0) mmol/L Uric Acid 6.5 (2.6-7.2) mg/dL Calcium 8.7 (8.5-10.1) mg/dL Magnesium 1.7 L (1.8-2.4) mg/dL Total Bilirubin 1.2 H (0.2-1.0) mg/dL AST 32 (15-37) U/L ALT 53 (12-78) U/L Alkaline Phosphatase 90 (46-116) IU/L Creatine Kinase 39 (26-308) U/L Creatine Kinase Index 2.6 H (0.0-2.5) % CK-MB (CK-2) 1.00 (0.00-3.60) ng/mL Troponin I 0.014 (0.000-0.056) ng/mL NT-Pro-B Natriuret Pep 2161 H (0-125) pg/mL Total Protein 7.1 (6.4-8.2) g/dL Albumin 2.6 L (3.4-5.0) g/dL TSH, Ultra Sensitive 0.578 (0.358-3.740) mIU/mL Meds: Medications Generic Name Dose Route Start Last Admin Trade Name Freq PRN Reason Stop Dose Admin Sodium Chloride 10 ml 01/26/18 19:49 01/26/18 20:03 Saline Flush FLUSH 10 ml ASDIRECTED PRN Administration Keep Vein Open Discontinued Medications Generic Name Dose Route Start Last Admin Trade Name Freq PRN Reason Stop Dose Admin Diltiazem HCl 10 mg 01/26/18 19:50 01/26/18 20:01 Diltiazem IVPUSH 01/26/18 19:51 10 mg ONETIME ONE Administration Diltiazem HCl 120 mg 01/26/18 20:11 01/26/18 20:18 Cardizem Cd PO 01/26/18 20:12 120 mg ONETIME ONE Administration Famotidine 40 mg 01/26/18 19:49 01/26/18 20:03 Pepcid IVPUSH 01/26/18 19:50 40 mg ONETIME ONE Administration - Radiology Interpretation Free Text/Narrative:: Flexographic Press Operator showed atrial fibrillation with rapid ventricular response with initial heart rate in the high 120s with no other ectopy or arrhythmia. Note improvement of heart rate to the 80s to 90s at time of admission. Chest x-ray, portable, shows evidence of moderate COPD and pulmonary fibrotic changes with probable pulmonary hypertension and/or mild centralized CHF with no pulmonary infiltrates, pneumothorax, etc. Mild prominence of the proximal aortic arch noted. Departure - Departure Time of Disposition: 21:05 Disposition: Refer to Observation Condition: Good Clinical Impression: Renal insufficiency, HTN, Essential hypertension, Monoclonal gammopathy, Hypoalbuminemia, COPD (chronic obstructive pulmonary disease), Hyperglycemia, Hypomagnesemia, Hyperbilirubinemia CHF (congestive heart failure) Qualifiers: Qualified Code(s): I50.9 - Heart failure, unspecified Hypertension Qualifiers: Hypertension type: essential hypertension Qualified Code(s): I10 - Essential ( primary) hypertension Hyperlipidemia Qualifiers: Hyperlipidemia type: unspecified Qualified Code(s): E78.5 - Hyperlipidemia, unspecified Gastroesophageal reflux disease Qualifiers: Esophagitis presence: without esophagitis Qualified Code(s): K21.9 - Gastro- esophageal reflux disease without esophagitis Osteoarthritis Qualifiers: Osteoarthritis location: multiple joints Osteoarthritis type: primary Qualified Code(s): M15.0 - Primary generalized (osteo)arthritis Atrial fibrillation Qualifiers: Atrial fibrillation type: chronic Qualified Code(s): I48.2 - Chronic atrial fibrillation Referrals: Sheets-Kimi Goodson MD [Primary Care Provider] - Forms: ED Department Discharge Care Plan Goals: See plan - Problem List & Annotations (1) Atrial fibrillation SNOMED Code(s): 15614012 Code(s): I48.91 - UNSPECIFIED ATRIAL FIBRILLATION Status: Acute Priority : High Current Visit: Yes Annotation/Comment:: Refractory and recurrent atrial fibrillation with excellent response to IV diltiazem therapy. Various therapeutic options were discussed with the patient and his , who do agree to continue diltiazem therapy, despite mild increased risk of increased bleeding with current Eliquis therapy. Discontinue digoxin, which was initiated earlier today, for now. Medications were confirmed today with actual prescription bottles, etc. with discharge medication list and prescription/OTC med bottles to be brought to each doctor appointment for verification. Continue medication adjustment during this hospitalization. 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 In addition, note previous unsuccessful cardiac ablation as above. Recent extensive negative cardiac workup as above. No chest pain or anginal type symptoms on arrival with chest pain protocol not initiated. Note recent negative heart catheterization as above. Mild leukocytosis likely secondary to stress reaction with normal WBCs during blood work at earlier this morning. UA with C&S will be collected, however. No recent history of fever, etc. Qualifiers: Atrial fibrillation type: chronic Qualified Code(s): I48.2 - Chronic atrial fibrillation (2) CHF (congestive heart failure) SNOMED Code(s): 11594209 Code(s): I50.9 - HEART FAILURE, UNSPECIFIED Status: Acute Priority: High Current Visit: Yes Onset Date: 11/08/17 Annotation/Comment:: Continued mildly increased BNP elevation and borderline centralized CHF by chest x-ray as above. Mild CHF likely secondary to his tachycardia with recent normal heart catheterization as above and additional echocardiogram on 10/04/17 ejection fraction of 50-55% at that time. Low-dose diuretic therapy for now. Echocardiogram will likely not need to be repeated. Note possibility of his renal insufficiency as concomitant factor of BNP elevation, however normal creatinine today Qualifiers: Qualified Code(s): I50.9 - Heart failure, unspecified (3) Monoclonal gammopathy SNOMED Code(s): 496759536 Code(s): D47.2 - MONOCLONAL GAMMOPATHY Status: Chronic Priority: Medium Current Visit: Yes Annotation/Comment:: Recently initiated chemotherapy therapy through [facility] in [place] as above. Weekly IV chemotherapy usually on . Continue close follow-up with oncology (4) Renal insufficiency SNOMED Code(s): 689368319, 527001143 Code(s): N28.9 - DISORDER OF KIDNEY AND URETER, UNSPECIFIED Status: Chronic Priority: Medium Current Visit: Yes Annotation/Comment:: Stable by patient history with close follow-up by nephrology at [facility] with recently diagnosed amyloidosis by renal biopsy as above. Continue to observe closely especially in light of diuretic therapy. (5) Hypomagnesemia SNOMED Code(s): 019194518 Code(s): E83.42 - HYPOMAGNESEMIA Status: Acute Priority: Medium Current Visit: Yes Onset Date: 01/26/18 Annotation/Comment:: Initiate magnesium oxide therapy especially in light of IV Lasix. Continue close observation on an outpatient basis. (6) Hyperbilirubinemia SNOMED Code(s): 98182568 Code(s): E80.6 - OTHER DISORDERS OF BILIRUBIN METABOLISM Status: Acute Priority: Medium Current Visit: Yes Onset Date: 01/26/18 Annotation/ Comment:: Mild. 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 Direct and indirect bilirubin tomorrow (7) Hyperglycemia SNOMED Code(s): 28814379 Code(s): R73.9 - HYPERGLYCEMIA, UNSPECIFIED Status: Acute Priority: Medium Current Visit: Yes Onset Date: 01/26/18 Annotation/Comment:: Glycosylated hemoglobin in the a.m. (8) Hypoalbuminemia SNOMED Code(s): 655947333 Code(s): E88.09 - OTH DISORDERS OF PLASMA-PROTEIN METABOLISM, NEC Status: Acute Priority: Medium Current Visit: Yes Onset Date: 11/08/17 Annotation/Comment:: Initiate high-protein Glucerna supplements, however previous history of hyperproteinemia secondary to his monoclonal gammopathy (9) Gastroesophageal reflux disease SNOMED Code(s): 349551290 Code(s): K21.9 - GASTRO-ESOPHAGEAL REFLUX DISEASE WITHOUT ESOPHAGITIS Status: Chronic Priority: Medium Current Visit: Yes Annotation/Comment:: Stable by history with high-dose IV Pepcid given as GI prophylaxis Qualifiers: Esophagitis presence: without esophagitis Qualified Code(s): K21.9 - Gastro -esophageal reflux disease without esophagitis (10) HTN, Essential hypertension SNOMED Code(s): 77176223 Code(s): I10 - ESSENTIAL (PRIMARY) HYPERTENSION Status: Chronic Priority : Low Current Visit: Yes Annotation/Comment:: Blood pressures under good control in the emergency room despite IV and oral diltiazem, which were given in the emergency room. Continue to observe closely. (11) Hyperlipidemia SNOMED Code(s): 01721787 Code(s): E78.5 - HYPERLIPIDEMIA, UNSPECIFIED Status: Chronic Priority: Medium Current Visit: Yes Annotation/Comment:: Lipid panel and glycosylated hemoglobin in the a.m. with borderline elevated nonfasting glucose Qualifiers: Hyperlipidemia type: unspecified Qualified Code(s): E78.5 - Hyperlipidemia , unspecified (12) Osteoarthritis SNOMED Code(s): 145914207 Code(s): M19.90 - UNSPECIFIED OSTEOARTHRITIS, UNSPECIFIED SITE Status: Chronic Priority: Medium Current Visit: Yes Annotation/Comment:: Stable by patient history Qualifiers: Osteoarthritis location: multiple joints Osteoarthritis type: primary Qualified Code(s): M15.0 - Primary generalized (osteo)arthritis (13) COPD (chronic obstructive pulmonary disease) SNOMED Code(s): 20382124 Code(s): J44.9 - CHRONIC OBSTRUCTIVE PULMONARY DISEASE, UNSPECIFIED Status : Chronic Priority: Medium Current Visit: Yes Annotation/Comment:: No recent fever or bronchitic type symptoms Qualifiers: COPD type: emphysema Emphysema type: panlobular Qualified Code(s): J43.1 - Panlobular emphysema - Problem List Review Problem List Initiated/Reviewed/Updated: Yes - My Orders Last 24 Hours: My Active Orders 01/26/18 19:49 Cardiac Monitoring [RC] . DIRECTED EKG Documentation Completion [RC] ASDIRECTED Peripheral IV Care [RC] . DIRECTED Pulse Oximetry [RC] CONTINUOUS Up With Assistance [RC] PFP Vital Signs [RC] PFP Chest 1V Frontal [CR] Stat Sodium Chloride 0.9% [Saline Flush] 10 ml FLUSH ASDIRECTED PRN Obtain Past Medical Record [OM.PC] Urgent Peripheral IV Insertion Adult [OM.PC] Stat Resuscitation Status Stat 01/26/18 Breakfast Nothing per Oral Now Diet [DIET] - Assessment/Plan Admission H&P: Please use this note as an admission H&P Last 24 Hours: My Active Orders 01/26/18 19:49 Cardiac Monitoring [RC] . DIRECTED EKG Documentation Completion [RC] ASDIRECTED Peripheral IV Care [RC] . DIRECTED Pulse Oximetry [RC] CONTINUOUS Up With Assistance [RC] PFP Vital Signs [RC] PFP Chest 1V Frontal [CR] Stat Sodium Chloride 0.9% [Saline Flush] 10 ml FLUSH ASDIRECTED PRN Obtain Past Medical Record [OM.PC] Urgent Peripheral IV Insertion Adult [OM.PC] Stat Resuscitation Status Stat 01/26/18 Breakfast Nothing per Oral Now Diet [DIET] Assessment:: As above Plan: As above. Extensive precautions were given to the patient and his , who are in agreement with the treatment plan. The patient's condition is stable enough for observation status and general supervision. [facility] assumes care in the a.m.
[2018-01-26] MEDS ORDERED: Famotidine 20 MG/2 ML SDV IVPUSH ONE (19:49)
[2018-01-26] MEDS ORDERED: Diltiazem 25 MG/5 ML SDV IVPUSH ONE (19:50)
[2018-01-26] MEDS: Sodium Chloride 0.9% 10 ML Syringe FLUSH PRN ×2 (20:03→22:00)
[2018-01-26] MEDS ORDERED: Diltiazem 120 MG Cap.CD PO ONE (20:11)
[2018-01-26 20:31] LABS: CHLORIDE,CL 102 mmol/L (98-107); SODIUM,NA 134 mmol/L (136-145)
[2018-01-26] MEDS ORDERED: Clobetasol 0.05% Crm 15 GM Tube TOP PRN (21:19)
[2018-01-26] MEDS ORDERED: Acetaminophen 500 MG Tab PO PRN (21:19)
[2018-01-26] MEDS ORDERED: Albuterol 90 MCG/6.7 GM Inhaler INH PRN (21:19)
[2018-01-26] MEDS ORDERED: [UNRECOGNIZED DRUG - REMARK] PO PRN (21:19)
[2018-01-26] MEDS ORDERED: RIZATRIPTAN 10 MG PO PRN (21:19)
[2018-01-26] MEDS ORDERED: Temazepam 15 MG Cap PO PRN (21:20)
[2018-01-26] MEDS ORDERED: Acetaminophen 325 MG Tab PO PRN (21:20)
[2018-01-26] MEDS ORDERED: Sodium Chloride 0.9% 10 ML Syringe FLUSH PRN (21:20)
[2018-01-26] MEDS ORDERED: Mometasone Furoate Powder 220 MCG/Puff 14 Dose Inhaler INH PRN (21:45)
[2018-01-26] MEDS ORDERED: Prochlorperazine 5 MG Tab PO PRN (21:45)
[2018-01-26] MEDS: Magnesium Oxide 400 MG Tab PO SCH (21:56)
[2018-01-26] MEDS: Cyanocobalamin (Vitamin B12) 1,000 MCG Tab PO SCH (21:56)
[2018-01-26] MEDS: Potassium Chloride 20 MEQ Tab.ER PO SCH (21:56)
[2018-01-26] MEDS: Omeprazole 20 MG Cap.CR PO SCH (21:57)
[2018-01-26] MEDS: Furosemide 40 MG/4 ML VIAL IVPUSH SCH (21:59)
[2018-01-27 07:58] LABS: CHLORIDE,CL 105 mmol/L (98-107); SODIUM,NA 137 mmol/L (136-145)
[2018-01-27] MEDS: Apixaban 5 MG Tab PO SCH ×2 (10:13→17:15)
[2018-01-27] MEDS: Potassium Chloride 20 MEQ Tab.ER PO SCH ×2 (10:13→17:15)
[2018-01-27] MEDS: Magnesium Oxide 400 MG Tab PO SCH ×2 (10:13→17:15)
[2018-01-27] MEDS: Simvastatin 10 MG Tab PO SCH (10:13)
[2018-01-27] MEDS: Metoprolol Succinate 50 MG Tab.ER PO SCH ×2 (10:14→19:48)
[2018-01-27] MEDS: Acyclovir 200 MG Cap PO SCH ×2 (10:14→17:15)
[2018-01-27] MEDS: Cholecalciferol (Vitamin D3) 1,000 Unit Tab PO SCH ×2 (10:14→17:15)
--- NOTE | 2018-01-27 10:23 | PCM.PN ---
- General Info Date of Service: 01/27/18 Admission Dx/Problem (Free Text): Afib with RVR Multiple Myeloma Diverticulosis History of Herpes Simplex Virus CKD Functional Status: Reports: Pain Controlled - Review of Systems General: Reports: Weakness HEENT: Reports: No Symptoms Pulmonary: Reports: No Symptoms Cardiovascular: Reports: Lightheadedness Gastrointestinal: Reports: No Symptoms Genitourinary: Reports: No Symptoms Musculoskeletal: Reports: No Symptoms Skin: Reports: No Symptoms Neurological: Reports: No Symptoms Psychiatric: Reports: No Symptoms - Patient Data Vitals - Most Recent: Last Vital Signs Temp 98.4 F 01/27/18 10:00 Pulse 98 01/27/18 10:14 Resp 18 01/27/18 10:00 BP 129/63 01/27/18 10:14 Pulse Ox 99 01/27/18 10:00 Weight - Most Recent: 185 lb 4.8 oz I&O - Last 24 Hours: Intake & Output 01/26/18 01/27/18 01/27/18 22:59 06:59 14:59 Intake Total 0 Output Total 1600 300 Balance 0 -1600 -300 Lab Results Last 24 Hours: Laboratory Results - last 24 hr 01/26/18 01/26/18 01/26/18 Range/Units 20:00 20:00 20:00 WBC 14.9 H (4.0-10.2) K/uL RBC 4.94 (4.33-5.41) M/uL Hgb 15.3 (13.1-16.8) g/dL Hct 42.3 (39.0-49.0) % MCV 85.6 D (84.0-98.0) fL MCH 31.0 (28.2-33.3) pg MCHC 36.2 H (31.7-36.0) g/dL RDW 14.2 H (11.2-14.1) % Plt Count 277 (150-350) K/uL Neut % (Auto) 79.0 (45.0-80.0) % Lymph % (Auto) 19.8 (10.0-50.0) % [place] % (Auto) 1.0 L (2.0-14.0) % Eos % (Auto) 0.1 (0.0-5.0) % Baso % (Auto) 0.1 (0.0-2.0) % Neut # (Auto) 11.80 H (1.40-7.00) K/uL Lymph # (Auto) 2.96 (0.50-3.50) K/uL [place] # (Auto) 0.15 (0.00-1.00) K/uL Eos # (Auto) 0.01 (0.00-0.50) K/uL Baso # (Auto) 0.01 (0.00-0.20) K/uL PT 10.7 (9.8-11.7) SEC INR 1.0 APTT 26.8 (22.1-29.8) SEC D-Dimer, Quantitative 142 (0-400) ng/mL Sodium (136-145) mmol/L Potassium (3.5-5.1) mmol/L Chloride (98-107) mmol/L Carbon Dioxide (21.0-32.0) mmol/L BUN (7-18) mg/dL Creatinine (0.51-1.17) mg/dL Est Cr Clr Drug Dosing mL/min Estimated GFR (MDRD) mL/min Glucose (74-106) mg/dL Hemoglobin A1c (4.3-5.7) % Lactic Acid (0.4-2.0) mmol/L Uric Acid (2.6-7.2) mg/dL Calcium (8.5-10.1) mg/dL Magnesium (1.8-2.4) mg/dL Total Bilirubin (0.2-1.0) mg/dL Direct Bilirubin (0.0-0.2) mg/dL Indirect Bilirubin AST (15-37) U/L ALT (12-78) U/L Alkaline Phosphatase (46-116) IU/L Creatine Kinase (26-308) U/L Creatine Kinase Index (0.0-2.5) % CK-MB (CK-2) (0.00-3.60) ng/mL Troponin I (0.000-0.056) ng/mL C-Reactive Protein (<=0.9) mg/dL NT-Pro-B Natriuret Pep (0-125) pg/mL Total Protein (6.4-8.2) g/dL Albumin (3.4-5.0) g/dL Triglycerides (30-150) mg/dL Cholesterol (100-200) mg/dL LDL Cholesterol, Calc (0-100) mg/dL HDL Cholesterol (40-60) mg/dL TSH, Ultra Sensitive (0.358-3.740) mIU/mL Specimen Type Urine Color Urine Appearance Urine pH (5.0-9.0) Ur Specific [place] (1.005-1.030) Urine Protein (NEGATIVE) mg/dL Urine Glucose (UA) (NEGATIVE) mg/dL Urine Ketones (NEGATIVE) mg/dL Urine Occult Blood (NEGATIVE) Urine Nitrite (NEGATIVE) Urine Bilirubin (NEGATIVE) Urine Urobilinogen (0.2-1.0) E.U./dL Ur Leukocyte Esterase (NEGATIVE) Urine RBC /HPF Urine WBC /HPF Ur Epithelial Cells /LPF Amorphous Sediment (0/HPF) /HPF Urine Bacteria (NONE TO FEW) /HPF 01/26/18 01/26/18 01/26/18 Range/Units 20:00 20:00 21:11 WBC (4.0-10.2) K/uL RBC (4.33-5.41) M/uL Hgb (13.1-16.8) g/dL Hct (39.0-49.0) % MCV (84.0-98.0) fL MCH (28.2-33.3) pg MCHC (31.7-36.0) g/dL RDW (11.2-14.1) % Plt Count (150-350) K/uL Neut % (Auto) (45.0-80.0) % Lymph % (Auto) (10.0-50.0) % [place] % (Auto) (2.0-14.0) % Eos % (Auto) (0.0-5.0) % Baso % (Auto) (0.0-2.0) % Neut # (Auto) (1.40-7.00) K/uL Lymph # (Auto) (0.50-3.50) K/uL [place] # (Auto) (0.00-1.00) K/uL Eos # (Auto) (0.00-0.50) K/uL Baso # (Auto) (0.00-0.20) K/uL PT (9.8-11.7) SEC INR APTT (22.1-29.8) SEC D-Dimer, Quantitative (0-400) ng/mL Sodium 134 L (136-145) mmol/L Potassium 4.2 (3.5-5.1) mmol/L Chloride 102 (98-107) mmol/L Carbon Dioxide 23.5 (21.0-32.0) mmol/L BUN 19 H (7-18) mg/dL Creatinine 1.05 (0.51-1.17) mg/dL Est Cr Clr Drug Dosing 71.07 mL/min Estimated GFR (MDRD) > 60 mL/min Glucose 164 H (74-106) mg/dL Hemoglobin A1c (4.3-5.7) % Lactic Acid 1.3 (0.4-2.0) mmol/L Uric Acid 6.5 (2.6-7.2) mg/dL Calcium 8.7 (8.5-10.1) mg/dL Magnesium 1.7 L (1.8-2.4) mg/dL Total Bilirubin 1.2 H (0.2-1.0) mg/dL Direct Bilirubin (0.0-0.2) mg/dL Indirect Bilirubin AST 32 (15-37) U/L ALT 53 (12-78) U/L Alkaline Phosphatase 90 (46-116) IU/L Creatine Kinase 39 (26-308) U/L Creatine Kinase Index 2.6 H (0.0-2.5) % CK-MB (CK-2) 1.00 (0.00-3.60) ng/mL Troponin I 0.014 (0.000-0.056) ng/mL C-Reactive Protein (<=0.9) mg/dL NT-Pro-B Natriuret Pep 2161 H (0-125) pg/mL Total Protein 7.1 (6.4-8.2) g/dL Albumin 2.6 L (3.4-5.0) g/dL Triglycerides (30-150) mg/dL Cholesterol (100-200) mg/dL LDL Cholesterol, Calc (0-100) mg/dL HDL Cholesterol (40-60) mg/dL TSH, Ultra Sensitive 0.578 (0.358-3.740) mIU/mL Specimen Type Urincc Urine Color Dark yellow Urine Appearance Cloudy Urine pH 5.5 (5.0-9.0) Ur Specific [place] 1.025 (1.005-1.030) Urine Protein >=300 H (NEGATIVE) mg/dL Urine Glucose (UA) Negative (NEGATIVE) mg/dL Urine Ketones Trace H (NEGATIVE) mg/dL Urine Occult Blood Small H (NEGATIVE) Urine Nitrite Negative (NEGATIVE) Urine Bilirubin Negative (NEGATIVE) Urine Urobilinogen 0.2 (0.2-1.0) E.U./dL Ur Leukocyte Esterase Negative (NEGATIVE) Urine RBC Not seen /HPF Urine WBC 0-5 /HPF Ur Epithelial Cells Occasional /LPF Amorphous Sediment Many H (0/HPF) /HPF Urine Bacteria Few (NONE TO FEW) /HPF 01/27/18 01/27/18 01/27/18 Range/Units 07:01 07:01 07:01 WBC 22.0 H (4.0-10.2) K/uL RBC 4.70 (4.33-5.41) M/uL Hgb 14.5 (13.1-16.8) g/dL Hct 40.5 (39.0-49.0) % MCV 86.2 (84.0-98.0) fL MCH 30.9 (28.2-33.3) pg MCHC 35.8 (31.7-36.0) g/dL RDW 14.1 (11.2-14.1) % Plt Count 282 (150-350) K/uL Neut % (Auto) 75.0 (45.0-80.0) % Lymph % (Auto) 17.6 (10.0-50.0) % [place] % (Auto) 7.2 (2.0-14.0) % Eos % (Auto) 0.1 (0.0-5.0) % Baso % (Auto) 0.1 (0.0-2.0) % Neut # (Auto) 16.48 H (1.40-7.00) K/uL Lymph # (Auto) 3.87 H (0.50-3.50) K/uL [place] # (Auto) 1.58 H (0.00-1.00) K/uL Eos # (Auto) 0.02 (0.00-0.50) K/uL Baso # (Auto) 0.02 (0.00-0.20) K/uL PT (9.8-11.7) SEC INR APTT (22.1-29.8) SEC D-Dimer, Quantitative (0-400) ng/mL Sodium 137 (136-145) mmol/L Potassium 4.0 (3.5-5.1) mmol/L Chloride 105 (98-107) mmol/L Carbon Dioxide 28.5 (21.0-32.0) mmol/L BUN 22 H (7-18) mg/dL Creatinine 1.21 H (0.51-1.17) mg/dL Est Cr Clr Drug Dosing 61.68 mL/min Estimated GFR (MDRD) > 60 mL/min Glucose 85 (74-106) mg/dL Hemoglobin A1c 5.7 (4.3-5.7) % Lactic Acid (0.4-2.0) mmol/L Uric Acid (2.6-7.2) mg/dL Calcium 8.8 (8.5-10.1) mg/dL Magnesium (1.8-2.4) mg/dL Total Bilirubin 1.2 H (0.2-1.0) mg/dL Direct Bilirubin 0.2 (0.0-0.2) mg/dL Indirect Bilirubin 1.0 AST 29 (15-37) U/L ALT 45 (12-78) U/L Alkaline Phosphatase 81 (46-116) IU/L Creatine Kinase 34 (26-308) U/L Creatine Kinase Index 3.5 H (0.0-2.5) % CK-MB (CK-2) 1.20 (0.00-3.60) ng/mL Troponin I 0.023 (0.000-0.056) ng/mL C-Reactive Protein (<=0.9) mg/dL NT-Pro-B Natriuret Pep 2610 H (0-125) pg/mL Total Protein 6.4 (6.4-8.2) g/dL Albumin 2.3 L (3.4-5.0) g/dL Triglycerides 95 (30-150) mg/dL Cholesterol 196 (100-200) mg/dL LDL Cholesterol, Calc 129 H (0-100) mg/dL HDL Cholesterol 48 (40-60) mg/dL TSH, Ultra Sensitive (0.358-3.740) mIU/mL Specimen Type Urine Color Urine Appearance Urine pH (5.0-9.0) Ur Specific [place] (1.005-1.030) Urine Protein (NEGATIVE) mg/dL Urine Glucose (UA) (NEGATIVE) mg/dL Urine Ketones (NEGATIVE) mg/dL Urine Occult Blood (NEGATIVE) Urine Nitrite (NEGATIVE) Urine Bilirubin (NEGATIVE) Urine Urobilinogen (0.2-1.0) E.U./dL Ur Leukocyte Esterase (NEGATIVE) Urine RBC /HPF Urine WBC /HPF Ur Epithelial Cells /LPF Amorphous Sediment (0/HPF) /HPF Urine Bacteria (NONE TO FEW) /HPF 01/27/18 Range/Units 07:01 WBC (4.0-10.2) K/uL RBC (4.33-5.41) M/uL Hgb (13.1-16.8) g/dL Hct (39.0-49.0) % MCV (84.0-98.0) fL MCH (28.2-33.3) pg MCHC (31.7-36.0) g/dL RDW (11.2-14.1) % Plt Count (150-350) K/uL Neut % (Auto) (45.0-80.0) % Lymph % (Auto) (10.0-50.0) % [place] % (Auto) (2.0-14.0) % Eos % (Auto) (0.0-5.0) % Baso % (Auto) (0.0-2.0) % Neut # (Auto) (1.40-7.00) K/uL Lymph # (Auto) (0.50-3.50) K/uL [place] # (Auto) (0.00-1.00) K/uL Eos # (Auto) (0.00-0.50) K/uL Baso # (Auto) (0.00-0.20) K/uL PT (9.8-11.7) SEC INR APTT (22.1-29.8) SEC D-Dimer, Quantitative (0-400) ng/mL Sodium (136-145) mmol/L Potassium (3.5-5.1) mmol/L Chloride (98-107) mmol/L Carbon Dioxide (21.0-32.0) mmol/L BUN (7-18) mg/dL Creatinine (0.51-1.17) mg/dL Est Cr Clr Drug Dosing mL/min Estimated GFR (MDRD) mL/min Glucose (74-106) mg/dL Hemoglobin A1c (4.3-5.7) % Lactic Acid (0.4-2.0) mmol/L Uric Acid (2.6-7.2) mg/dL Calcium (8.5-10.1) mg/dL Magnesium (1.8-2.4) mg/dL Total Bilirubin (0.2-1.0) mg/dL Direct Bilirubin (0.0-0.2) mg/dL Indirect Bilirubin AST (15-37) U/L ALT (12-78) U/L Alkaline Phosphatase (46-116) IU/L Creatine Kinase (26-308) U/L Creatine Kinase Index (0.0-2.5) % CK-MB (CK-2) (0.00-3.60) ng/mL Troponin I (0.000-0.056) ng/mL C-Reactive Protein < 0.9 (<=0.9) mg/dL NT-Pro-B Natriuret Pep (0-125) pg/mL Total Protein (6.4-8.2) g/dL Albumin (3.4-5.0) g/dL Triglycerides (30-150) mg/dL Cholesterol (100-200) mg/dL LDL Cholesterol, Calc (0-100) mg/dL HDL Cholesterol (40-60) mg/dL TSH, Ultra Sensitive (0.358-3.740) mIU/mL Specimen Type Urine Color Urine Appearance Urine pH (5.0-9.0) Ur Specific [place] (1.005-1.030) Urine Protein (NEGATIVE) mg/dL Urine Glucose (UA) (NEGATIVE) mg/dL Urine Ketones (NEGATIVE) mg/dL Urine Occult Blood (NEGATIVE) Urine Nitrite (NEGATIVE) Urine Bilirubin (NEGATIVE) Urine Urobilinogen (0.2-1.0) E.U./dL Ur Leukocyte Esterase (NEGATIVE) Urine RBC /HPF Urine WBC /HPF Ur Epithelial Cells /LPF Amorphous Sediment (0/HPF) /HPF Urine Bacteria (NONE TO FEW) /HPF Jon Results Last 24 Hours: Microbiology 01/26/18 21:20 Stool Occult Blood (JON) - Final Stool / Feces NEGATIVE OCCULT BLOOD Med Orders - Current: Current Medications Acetaminophen (Tylenol Extra Strength) 1,000 mg PO TID PRN PRN Reason: Pain Acetaminophen (Tylenol) 650 mg PO Q4H PRN PRN Reason: Pain Acyclovir (Zovirax) 400 mg PO BID [facility] Last Admin: 01/27/18 10:14 Dose: 400 mg Albuterol (Proventil Hfa) 0 puff INH Q4H PRN PRN Reason: sob Apixaban (Eliquis) 5 mg PO BID [facility] Last Admin: 01/27/18 10:13 Dose: 5 mg Cholecalciferol (Vitamin D3) 1,000 units PO BID [facility] Last Admin: 01/27/18 10:14 Dose: 1,000 units Clobetasol Propionate (Clobetasol Propionate 0.05%) 0 gm TOP BID PRN PRN Reason: excema Cyanocobalamin (Vitamin B12) 1,000 mcg PO BEDTIME [facility] Last Admin: 01/26/18 21:56 Dose: 1,000 mcg Dexamethasone (Dexamethasone) 40 mg PO Th@0800 [facility] Diltiazem HCl (Cardizem Cd) 120 mg PO QPM [facility] Furosemide (Lasix) 40 mg IVPUSH Q12H [facility] Last Admin: 01/26/18 21:59 Dose: 40 mg Latanoprost (Xalatan 0.005% Ophth Soln) 0 ml EYEBOTH BEDTIME [facility] Magnesium Oxide (Magnesium Oxide) 400 mg PO BID [facility] Last Admin: 01/27/18 10:13 Dose: 400 mg Metoprolol Succinate (Toprol Xl) 50 mg PO Q12HR [facility] Last Admin: 01/27/18 10:14 Dose: 50 mg Mometasone Furoate (Asmanex 220 Mcg) 0 puff INH DAILY PRN PRN Reason: ASTHMA Non-Form Cyclophosphamide 600 Mg 600 mg PO TH@08 [facility] Non-Form Zolmitriptan Odt 5 Mg 5 mg PO DAILY PRN PRN Reason: migraine Omeprazole (Omeprazole) 20 mg PO BEDTIME [facility] Last Admin: 01/26/18 21:57 Dose: 20 mg Ondansetron HCl (Zofran Odt) 4 mg PO Q6H PRN PRN Reason: Nausea Potassium Chloride (Klor-Con M20) 20 meq PO BID [facility] Last Admin: 01/27/18 10:13 Dose: 20 meq Prochlorperazine Maleate (Compazine) 10 mg PO Q6H PRN PRN Reason: NAUSEA Simvastatin (Zocor) 10 mg PO QAM [facility] Last Admin: 01/27/18 10:13 Dose: 10 mg Sodium Chloride (Saline Flush) 10 ml FLUSH ASDIRECTED PRN PRN Reason: Keep Vein Open Last Admin: 01/26/18 22:00 Dose: 10 ml Sodium Chloride (Saline Flush) 10 ml FLUSH Q12HR PRN PRN Reason: Keep Vein Open Temazepam (Restoril) 15 mg PO BEDTIME PRN PRN Reason: Insomnia Last Admin: 01/26/18 21:59 Dose: 15 mg Discontinued Medications Diltiazem HCl (Diltiazem) 10 mg IVPUSH ONETIME ONE Stop: 01/26/18 19:51 Last Admin: 01/26/18 20:01 Dose: 10 mg Diltiazem HCl (Cardizem Cd) 120 mg PO ONETIME ONE Stop: 01/26/18 20:12 Last Admin: 01/26/18 20:18 Dose: 120 mg Famotidine (Pepcid) 40 mg IVPUSH ONETIME ONE Stop: 01/26/18 19:50 Last Admin: 01/26/18 20:03 Dose: 40 mg Non-Formulary Medication (Rizatriptan [Maxalt]) 10 mg PO DAILY PRN PRN Reason: Migraine Omeprazole (Omeprazole) 20 mg PO BEDTIME [facility] - Exam General: Alert, Oriented, Cooperative, No Acute Distress HEENT: Pupils Equal, Pupils Reactive, EOMI, Mucous Membr. Moist/[place] Neck: Supple, Trachea Midline, No JVD Lungs: Clear to Auscultation, Normal Respiratory Effort Cardiovascular: Regular Rate, Irregular Rhythm, Murmurs GI/Abdominal Exam: Normal Bowel Sounds, Soft, Non-Tender, No Organomegaly, No Distention, No Abnormal Bruit, No Mass, Pelvis Stable Back Exam: Normal Inspection Extremities: Normal Inspection, Normal Range of Motion, Non-Tender, No Pedal Edema, Normal Capillary Refill Peripheral Pulses: 2+: Dorsalis Pedis (L), Dorsalis Pedis (R) Skin: Warm, Dry, Intact Neurological: No New Focal Deficit Psy/Mental Status: Alert, Normal Affect, Normal Mood, Other (worries some about current medical problems) EKG INTERPRETATION EKG Date: 01/27/18 Rhythm: A-Fib Comparison: No Change - Problem List & Annotations (1) Atrial fibrillation SNOMED Code(s): 63148227 Code(s): I48.91 - UNSPECIFIED ATRIAL FIBRILLATION Status: Acute Priority : High Current Visit: Yes Qualifiers: Atrial fibrillation type: chronic Qualified Code(s): I48.2 - Chronic atrial fibrillation Annotation/Comment:: Patient has responded to IV Diltiazem and oral diltiazem. on metoprolol. Continues to follow with cardiology, states seeing pulmonology in the next few weeks to see if he can tolerate another medication for his A Fib. Continue on Eliquis (2) Hypertension SNOMED Code(s): 32310244 Code(s): I10 - ESSENTIAL (PRIMARY) HYPERTENSION Status: Acute Current Visit: Yes Qualifiers: Hypertension type: essential hypertension Qualified Code(s): I10 - Essential (primary) hypertension (3) Monoclonal gammopathy SNOMED Code(s): 069160634 Code(s): D47.2 - MONOCLONAL GAMMOPATHY Status: Chronic Priority: Medium Current Visit: Yes Annotation/Comment:: Follows with Dr Lundberg, [facility]. Receiving weekly chemo injections for 4 weeks. (4) Renal insufficiency SNOMED Code(s): 287606767, 495280814 Code(s): N28.9 - DISORDER OF KIDNEY AND URETER, UNSPECIFIED Status: Chronic Priority: Medium Current Visit: Yes Annotation/Comment:: Noted to have slight increase in CR, patient given IV Lasix BID for CHF in the ER (5) Leukocytosis SNOMED Code(s): 458753689, 718458758 Code(s): D72.829 - ELEVATED WHITE BLOOD CELL COUNT, UNSPECIFIED Status: Acute Priority: Medium Current Visit: No Onset Date: 11/08/17 Qualifiers: Leukocytosis type: bandemia Qualified Code(s): D72.825 - Bandemia Annotation/Comment:: WBC increased from ER evaluation, no signs of infection. Chest Xray and urine reviewed. CRP within normal limits. Patient takes loading dose of steroids prior to chemo which was given 01/26/2018 - Problem List Review Problem List Initiated/Reviewed/Updated: Yes - Plan Plan:: 01/27/2018 Patient is feeling good, no chest pain, denies shortness of breath, denies dizziness. Labs reviewed, increase in WBC , negative CRP possibly due to steroid load patient took prior to chemo yesterday and stress of RVR of A fib. Has history of diverticulitis, denies abdominal pain. Patient received a dose of Digoxin yesterday at [facility] with his chemo injection for rapid heart rate without relief. Patient has had a cardiac ablation done about a year ago, continues to doctor with cardiology and has been tried on various different medications to control his heart rate. Next step is for the patient to see pulmonology but he is unsure why. Will obtain records from [facility]. Recheck labs in the morning. Will consult with Dr Gould. Patient to be in reverse isolation. Continue on telemetry. Patient verbalizes understanding and agreed to the plan of care. Adjust Lasix, patient has CKD and Cr trended upward. Opal Dale,RF MANAGER
[2018-01-27] MEDS: Furosemide 40 MG/4 ML VIAL IVPUSH SCH (12:08)
[2018-01-27] MEDS: Diltiazem 120 MG Cap.CD PO SCH (17:15)
[2018-01-27] MEDS: Omeprazole 20 MG Cap.CR PO SCH (19:47)
[2018-01-27] MEDS: Cyanocobalamin (Vitamin B12) 1,000 MCG Tab PO SCH (19:47)
[2018-01-27] MEDS: Latanoprost 0.005% Ophth Soln 2.5 ML Bottle EYEBOTH SCH (19:52)
[2018-01-27] MEDS ORDERED: Omeprazole 20 MG Cap.CR PO SCH (20:00)
[2018-01-28] MEDS: Ondansetron 4 MG Tab.DIS PO PRN ×2 (05:08→15:08)
[2018-01-28 07:32] LABS: CHLORIDE,CL 106 mmol/L (98-107); SODIUM,NA 137 mmol/L (136-145)
[2018-01-28] MEDS ORDERED: Ondansetron 4 MG/2 ML SDV IVPUSH ONE (08:26)
[2018-01-28] MEDS: Sodium Chloride 0.9% 10 ML Syringe FLUSH PRN (08:53)
[2018-01-28] MEDS ORDERED: Sodium Chloride 0.9% 250 ML IV SCH (09:15)
[2018-01-28] MEDS ORDERED: Pantoprazole 40 MG Vial IVPUSH ONE (09:15)
--- NOTE | 2018-01-28 09:18 | PCM.PN ---
- General Info Date of Service: 01/28/18 Admission Dx/Problem (Free Text): Afib with RVR Multiple Myeloma Diverticulosis History of Herpes Simplex Virus CKD Functional Status: Reports: Other (now with nausea and vomiting, patient states from pineapple he ate yesterday) - Review of Systems General: Reports: No Symptoms HEENT: Reports: No Symptoms Pulmonary: Reports: No Symptoms Cardiovascular: Reports: No Symptoms Gastrointestinal: Reports: Decreased Appetite, Nausea, Vomiting, Other ( heartburn) Genitourinary: Reports: No Symptoms Musculoskeletal: Reports: No Symptoms Skin: Reports: Other (erythematous area on posterior right arm from chemo shot) Neurological: Reports: No Symptoms Psychiatric: Reports: No Symptoms - Patient Data Vitals - Most Recent: Last Vital Signs Temp 98.2 F 01/28/18 07:14 Pulse 69 01/28/18 07:14 Resp 18 01/28/18 07:14 BP 131/66 01/28/18 07:14 Pulse Ox 99 01/28/18 07:14 Weight - Most Recent: 183 lb 12.8 oz I&O - Last 24 Hours: Intake & Output 01/27/18 01/28/18 01/28/18 22:59 06:59 14:59 Intake Total 420 820 Output Total 550 Balance 420 270 Lab Results Last 24 Hours: Laboratory Results - last 24 hr 01/27/18 01/28/18 01/28/18 Range/Units 07:01 07:05 07:05 WBC 17.6 H (4.0-10.2) K/uL RBC 5.21 (4.33-5.41) M/uL Hgb 16.1 D (13.1-16.8) g/dL Hct 45.3 (39.0-49.0) % MCV 86.9 (84.0-98.0) fL MCH 30.9 (28.2-33.3) pg MCHC 35.5 (31.7-36.0) g/dL RDW 14.7 H (11.2-14.1) % Plt Count 268 (150-350) K/uL Neut % (Auto) 75.6 (45.0-80.0) % Lymph % (Auto) 13.3 (10.0-50.0) % [place] % (Auto) 10.3 (2.0-14.0) % Eos % (Auto) 0.6 (0.0-5.0) % Baso % (Auto) 0.2 (0.0-2.0) % Neut # (Auto) 13.32 H (1.40-7.00) K/uL Lymph # (Auto) 2.34 (0.50-3.50) K/uL [place] # (Auto) 1.81 H (0.00-1.00) K/uL Eos # (Auto) 0.10 (0.00-0.50) K/uL Baso # (Auto) 0.04 (0.00-0.20) K/uL Sodium 137 (136-145) mmol/L Potassium 4.6 (3.5-5.1) mmol/L Chloride 106 (98-107) mmol/L Carbon Dioxide 27.6 (21.0-32.0) mmol/L BUN 27 H (7-18) mg/dL Creatinine 1.07 (0.51-1.17) mg/dL Est Cr Clr Drug Dosing 69.75 mL/min Estimated GFR (MDRD) > 60 mL/min Glucose 107 H (74-106) mg/dL Calcium 9.2 (8.5-10.1) mg/dL Total Bilirubin 1.2 H (0.2-1.0) mg/dL AST 33 (15-37) U/L ALT 52 (12-78) U/L Alkaline Phosphatase 89 (46-116) IU/L Troponin I 0.023 (0.000-0.056) ng/mL C-Reactive Protein < 0.9 (<=0.9) mg/dL Total Protein 6.9 (6.4-8.2) g/dL Albumin 2.5 L (3.4-5.0) g/dL 01/28/18 Range/Units 07:05 WBC (4.0-10.2) K/uL RBC (4.33-5.41) M/uL Hgb (13.1-16.8) g/dL Hct (39.0-49.0) % MCV (84.0-98.0) fL MCH (28.2-33.3) pg MCHC (31.7-36.0) g/dL RDW (11.2-14.1) % Plt Count (150-350) K/uL Neut % (Auto) (45.0-80.0) % Lymph % (Auto) (10.0-50.0) % [place] % (Auto) (2.0-14.0) % Eos % (Auto) (0.0-5.0) % Baso % (Auto) (0.0-2.0) % Neut # (Auto) (1.40-7.00) K/uL Lymph # (Auto) (0.50-3.50) K/uL [place] # (Auto) (0.00-1.00) K/uL Eos # (Auto) (0.00-0.50) K/uL Baso # (Auto) (0.00-0.20) K/uL Sodium (136-145) mmol/L Potassium (3.5-5.1) mmol/L Chloride (98-107) mmol/L Carbon Dioxide (21.0-32.0) mmol/L BUN (7-18) mg/dL Creatinine (0.51-1.17) mg/dL Est Cr Clr Drug Dosing mL/min Estimated GFR (MDRD) mL/min Glucose (74-106) mg/dL Calcium (8.5-10.1) mg/dL Total Bilirubin (0.2-1.0) mg/dL AST (15-37) U/L ALT (12-78) U/L Alkaline Phosphatase (46-116) IU/L Troponin I (0.000-0.056) ng/mL C-Reactive Protein 0.2 (<=0.9) mg/dL Total Protein (6.4-8.2) g/dL Albumin (3.4-5.0) g/dL Jon Results Last 24 Hours: Microbiology 01/26/18 21:20 Stool Occult Blood (JON) - Final Stool / Feces NEGATIVE OCCULT BLOOD Med Orders - Current: Current Medications Acetaminophen (Tylenol Extra Strength) 1,000 mg PO TID PRN PRN Reason: Pain Acetaminophen (Tylenol) 650 mg PO Q4H PRN PRN Reason: Pain Acyclovir (Zovirax) 400 mg PO BID [facility] Last Admin: 01/27/18 17:15 Dose: 400 mg Albuterol (Proventil Hfa) 0 puff INH Q4H PRN PRN Reason: sob Apixaban (Eliquis) 5 mg PO BID [facility] Last Admin: 01/27/18 17:15 Dose: 5 mg Cholecalciferol (Vitamin D3) 1,000 units PO BID [facility] Last Admin: 01/27/18 17:15 Dose: 1,000 units Clobetasol Propionate (Clobetasol Propionate 0.05%) 0 gm TOP BID PRN PRN Reason: excema Cyanocobalamin (Vitamin B12) 1,000 mcg PO BEDTIME [facility] Last Admin: 01/27/18 19:47 Dose: 1,000 mcg Dexamethasone (Dexamethasone) 40 mg PO Th@0800 [facility] Diltiazem HCl (Cardizem Cd) 120 mg PO QPM [facility] Last Admin: 01/27/18 17:15 Dose: 120 mg Sodium Chloride (Normal Saline) 250 mls @ 125 mls/hr IV ASDIRECTED [facility] Latanoprost (Xalatan 0.005% Ophth Soln) 0 ml EYEBOTH BEDTIME [facility] Last Admin: 01/27/18 19:52 Dose: Not Given Magnesium Oxide (Magnesium Oxide) 400 mg PO BID [facility] Stop: 01/28/18 18:00 Last Admin: 01/27/18 17:15 Dose: 400 mg Magnesium Oxide (Magnesium Oxide) 400 mg PO DAILY [facility] Metoprolol Succinate (Toprol Xl) 50 mg PO Q12HR [facility] Last Admin: 01/27/18 19:48 Dose: 50 mg Mometasone Furoate (Asmanex 220 Mcg) 0 puff INH DAILY PRN PRN Reason: ASTHMA Non-Form Cyclophosphamide 600 Mg 600 mg PO TH@08 [facility] Non-Form Zolmitriptan Odt 5 Mg 5 mg PO DAILY PRN PRN Reason: migraine Omeprazole (Omeprazole) 20 mg PO BEDTIME [facility] Last Admin: 01/27/18 19:47 Dose: 20 mg Ondansetron HCl (Zofran Odt) 4 mg PO Q6H PRN PRN Reason: Nausea Last Admin: 01/28/18 05:08 Dose: 4 mg Pantoprazole Sodium (Protonix Iv) 40 mg IVPUSH ONETIME ONE Stop: 01/28/18 09:16 Prochlorperazine Maleate (Compazine) 10 mg PO Q6H PRN PRN Reason: NAUSEA Last Admin: 01/28/18 05:46 Dose: 10 mg Simvastatin (Zocor) 10 mg PO QAM [facility] Last Admin: 01/27/18 10:13 Dose: 10 mg Sodium Chloride (Saline Flush) 10 ml FLUSH ASDIRECTED PRN PRN Reason: Keep Vein Open Last Admin: 01/28/18 08:53 Dose: 10 ml Sodium Chloride (Saline Flush) 10 ml FLUSH Q12HR PRN PRN Reason: Keep Vein Open Temazepam (Restoril) 15 mg PO BEDTIME PRN PRN Reason: Insomnia Last Admin: 01/26/18 21:59 Dose: 15 mg Discontinued Medications Diltiazem HCl (Diltiazem) 10 mg IVPUSH ONETIME ONE Stop: 01/26/18 19:51 Last Admin: 01/26/18 20:01 Dose: 10 mg Diltiazem HCl (Cardizem Cd) 120 mg PO ONETIME ONE Stop: 01/26/18 20:12 Last Admin: 01/26/18 20:18 Dose: 120 mg Famotidine (Pepcid) 40 mg IVPUSH ONETIME ONE Stop: 01/26/18 19:50 Last Admin: 01/26/18 20:03 Dose: 40 mg Furosemide (Lasix) 40 mg IVPUSH Q12H [facility] Last Admin: 01/27/18 12:08 Dose: Not Given Non-Formulary Medication (Rizatriptan [Maxalt]) 10 mg PO DAILY PRN PRN Reason: Migraine Omeprazole (Omeprazole) 20 mg PO BEDTIME [facility] Ondansetron HCl (Zofran) 4 mg IVPUSH ONETIME ONE Stop: 01/28/18 08:27 Last Admin: 01/28/18 08:52 Dose: 4 mg Potassium Chloride (Klor-Con M20) 20 meq PO BID [facility] Last Admin: 01/27/18 17:15 Dose: 20 meq - Exam General: Alert, Oriented, Cooperative, No Acute Distress HEENT: Pupils Equal, Pupils Reactive, EOMI, Mucous Membr. Moist/[place] Neck: Supple, Trachea Midline, No JVD Lungs: Clear to Auscultation, Normal Respiratory Effort Cardiovascular: Regular Rate, Irregular Rhythm GI/Abdominal Exam: Normal Bowel Sounds, Soft, Non-Tender, No Organomegaly, No Distention, No Abnormal Bruit, No Mass Extremities: Normal Inspection, Normal Range of Motion, Non-Tender, No Pedal Edema, Normal Capillary Refill Peripheral Pulses: 1+: Dorsalis Pedis (L), Dorsalis Pedis (R) Skin: Warm, Dry, Intact Neurological: No New Focal Deficit Psy/Mental Status: Alert, Normal Affect, Normal Mood - Problem List & Annotations (1) Atrial fibrillation SNOMED Code(s): 03932471 Code(s): I48.91 - UNSPECIFIED ATRIAL FIBRILLATION Status: Acute Priority : High Current Visit: Yes Qualifiers: Atrial fibrillation type: chronic Qualified Code(s): I48.2 - Chronic atrial fibrillation Annotation/Comment:: Patient has responded to IV Diltiazem and oral diltiazem. on metoprolol. Continues to follow with cardiology, states seeing pulmonology in the next few weeks to see if he can tolerate another medication for his A Fib. Continue on Eliquis (2) Hypertension SNOMED Code(s): 97720652 Code(s): I10 - ESSENTIAL (PRIMARY) HYPERTENSION Status: Acute Current Visit: Yes Qualifiers: Hypertension type: essential hypertension Qualified Code(s): I10 - Essential (primary) hypertension (3) Monoclonal gammopathy SNOMED Code(s): 991578387 Code(s): D47.2 - MONOCLONAL GAMMOPATHY Status: Chronic Priority: Medium Current Visit: Yes Annotation/Comment:: Follows with Dr Lundberg, [place] [facility]. Receiving weekly chemo injections for 4 weeks. (4) Renal insufficiency SNOMED Code(s): 638317671, 884449589 Code(s): N28.9 - DISORDER OF KIDNEY AND URETER, UNSPECIFIED Status: Chronic Priority: Medium Current Visit: Yes Annotation/Comment:: Noted to have slight increase in CR, patient given IV Lasix BID for CHF in the ER (5) Leukocytosis SNOMED Code(s): 889314054, 430561776 Code(s): D72.829 - ELEVATED WHITE BLOOD CELL COUNT, UNSPECIFIED Status: Acute Priority: Medium Current Visit: No Onset Date: 11/08/17 Qualifiers: Leukocytosis type: bandemia Qualified Code(s): D72.825 - Bandemia Annotation/Comment:: WBC increased from ER evaluation, no signs of infection. Chest Xray and urine reviewed. CRP within normal limits. Patient takes loading dose of steroids prior to chemo which was given 01/26/2018 - Problem List Review Problem List Initiated/Reviewed/Updated: Yes - My Orders Last 24 Hours: My Active Orders 01/27/18 23:00 Vital Signs [RC] Q4HR 01/27/18 Lunch Regular Diet [DIET] 01/28/18 09:15 Pantoprazole [ProTONIX IV] 40 mg IVPUSH ONETIME ONE Sodium Chloride 0.9% [Normal Saline] 250 ml IV ASDIRECTED 01/29/18 05:11 BASIC METABOLIC PANEL,BMP [CHEM] DAILY CBC WITH AUTO DIFF [HEME] DAILY 01/29/18 18:00 Magnesium Oxide 400 mg PO DAILY - Plan Plan:: 01/27/2018 Patient is feeling good, no chest pain, denies shortness of breath, denies dizziness. Labs reviewed, increase in WBC , negative CRP possibly due to steroid load patient took prior to chemo yesterday and stress of RVR of A fib. Has history of diverticulitis, denies abdominal pain. Patient received a dose of Digoxin yesterday at [facility] with his chemo injection for rapid heart rate without relief. Patient has had a cardiac ablation done about a year ago, continues to doctor with cardiology and has been tried on various different medications to control his heart rate. Next step is for the patient to see pulmonology but he is unsure why. Will obtain records from [facility]. Recheck labs in the morning. Will consult with Dr Gould. Patient to be in reverse isolation. Continue on telemetry. Patient verbalizes understanding and agreed to the plan of care. Adjust Lasix, patient has CKD and Cr trended upward. Opal Dale CNP 01/28/2018 Patient started with N/V early this morning, states from eating pineapple yesterday as he has done that before. Had some loose stools yesterday which he states he gets after chemo and medications. Denies abdominal pain. No fever. labs reviewed, Cr improved, Lasix stopped and Chest Xray reviewed. WBC coming down. CRP remain within normal limits. Called [facility] cardiology, patient is seeing EP reporting specialist and not pulmonology February 05. patient was started on Diltiazem last hospitalization but patient unsure why he wasnt taking it. Patient has been responding to Diltiazem with rate control, will continue upon discharge. Patient given Zofran and compazine with some improvement, will give IV Protonix and 250cc of fluids. Patient is wanting to go home, discussed with patient that he will need to be able to keep down oral medications before discharge. Will re evaluate later today and possible discharge if the patient is feeling better. Opal Dale, SENIOR RECRUITMENT CONSULTANT
--- NOTE | 2018-01-28 09:36 | PCM.DCSUM1 ---
Discharge Summary - Hospital Course Free Text/Narrative:: patient was admitted through the ER with Afib with RVR, Imbler has given the patient oral digoxin with little relief. 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 Patient responded to IV and oral cardiazem. Started with some nausea and vomiting relief with Zofran IV. WBC was elevated most likely from oral steroids. Patient CR level increased from IV Lasix, but improved level noted the next day. - Discharge Data Discharge Date: 01/28/18 Discharge Disposition: Home, Self-Care 01 Condition: Fair - Discharge Diagnosis/Problem(s) (1) Atrial fibrillation SNOMED Code(s): 64804901 ICD Code: I48.91 - UNSPECIFIED ATRIAL FIBRILLATION Status: Acute Priority : High Current Visit: Yes Qualifiers: Atrial fibrillation type: chronic Qualified Code(s): I48.2 - Chronic atrial fibrillation (2) Hypertension SNOMED Code(s): 84347456 ICD Code: I10 - ESSENTIAL (PRIMARY) HYPERTENSION Status: Acute Current Visit: Yes Qualifiers: Hypertension type: essential hypertension Qualified Code(s): I10 - Essential (primary) hypertension (3) Monoclonal gammopathy SNOMED Code(s): 963260385 ICD Code: D47.2 - MONOCLONAL GAMMOPATHY Status: Chronic Priority: Medium Current Visit: Yes Problem Details: . (4) Renal insufficiency SNOMED Code(s): 854732468, 808581186 ICD Code: N28.9 - DISORDER OF KIDNEY AND URETER, UNSPECIFIED Status: Chronic Priority: Medium Current Visit: Yes (5) Leukocytosis SNOMED Code(s): 621185370, 235813984 ICD Code: D72.829 - ELEVATED WHITE BLOOD CELL COUNT, UNSPECIFIED Status: Acute Priority: Medium Current Visit: No Onset Date: 11/08/17 Problem Details: WBC increased from ER evaluation, no signs of infection. Chest Xray and urine reviewed. CRP within normal limits. Patient takes loading dose of steroids prior to chemo which was given 01/26/2018 Qualifiers: Leukocytosis type: bandemia Qualified Code(s): D72.825 - Bandemia - Patient Instructions Diet: Regular Diet as Tolerated Driving: May Drive Today Showering/Bathing: May Shower Notify Provider of: Fever, Increased Pain, Nausea and/or Vomiting - Discharge Plan Prescriptions/Med Rec: Diltiazem [Cardizem] 120 mg PO DAILY@1800 #90 tab Magnesium 400 mg PO BEDTIME 30 Days tablet Home Medications: Home Meds Omeprazole 20 mg PO BEDTIME 07/13/14 [History] Simvastatin 10 mg PO QAM 07/13/14 [History] Fluticasone Propionate [Flovent] 100 mcg IH BID PRN 05/28/15 [History] Apixaban [Eliquis] 5 mg PO BID 04/16/17 [History] Cyanocobalamin (Vitamin B-12) [B-12] 1,000 mcg PO BEDTIME 04/16/17 [History] Latanoprost [Xalatan 0.005% Ophth Soln] 1 drop EYEBOTH BEDTIME 04/16/17 [History ] ZOLMitriptan [Zolmitriptan Odt] 5 mg PO DAILY PRN 11/08/17 [History] Metoprolol Succinate [Toprol XL 50mg] 50 mg PO Q12HR #180 tab.er 11/10/17 [Rx] Acetaminophen [Tylenol Extra Strength] 1,000 mg PO TID PRN 01/26/18 [History] Acyclovir [Zovirax] 1 tab PO BID 01/26/18 [History] Albuterol [Proventil HFA] 2 puff INH Q4H PRN 01/26/18 [History] Cholecalciferol (Vitamin D3) [Vitamin D3] 1,000 units PO BID 01/26/18 [History] Clobetasol [Clobetasol 0.05%] 1 applic TOP BID PRN 01/26/18 [History] Cyclophosphamide 600 mg PO TH@01/26/18 [History] Dexamethasone 40 mg PO TH@01/26/18 [History] Non-Formulary Medication [NF Drug] 1 each PO ASDIRECTED PRN 01/26/18 [History] Ondansetron [Zofran ODT] 4 mg PO Q6H PRN 01/26/18 [History] Prochlorperazine [Compazine] 10 mg PO Q6H PRN 01/26/18 [History] Diltiazem [Cardizem] 120 mg PO DAILY@1800 #90 tab 01/28/18 [Rx] Magnesium 400 mg PO BEDTIME 30 Days tablet 01/28/18 [Rx] Patient Handouts: Diltiazem tablets, Atrial Fibrillation, [id number] Forms: ED Department Discharge Referrals: Sheets-Kimi Goodson MD [Primary Care Provider] - - Discharge Summary/Plan Comment DC Time >30 min.: No Discharge Summary/Plan Comment: Patient will be discharged later today if he is able to get medications down and nausea/vomiting improved. Will continue on Diltiazem and patient to follow with cardiology, appointments are already set up. Patient has anti-nausea medications at home for after chemo therapy. Patient verbalized understanding. Opal Catalan - Patient Data Vitals - Most Recent: Last Vital Signs Temp 98.2 F 01/28/18 07:14 Pulse 69 01/28/18 07:14 Resp 18 01/28/18 07:14 BP 131/66 01/28/18 07:14 Pulse Ox 99 01/28/18 07:14 Weight - Most Recent: 183 lb 12.8 oz I&O - Last 24 hours: Intake & Output 01/27/18 01/28/18 01/28/18 22:59 06:59 14:59 Intake Total 420 820 Output Total 550 Balance 420 270 Lab Results - Last 24 hrs: Laboratory Results - last 24 hr 01/27/18 01/28/18 01/28/18 Range/Units 07:01 07:05 07:05 WBC 17.6 H (4.0-10.2) K/uL RBC 5.21 (4.33-5.41) M/uL Hgb 16.1 D (13.1-16.8) g/dL Hct 45.3 (39.0-49.0) % MCV 86.9 (84.0-98.0) fL MCH 30.9 (28.2-33.3) pg MCHC 35.5 (31.7-36.0) g/dL RDW 14.7 H (11.2-14.1) % Plt Count 268 (150-350) K/uL Neut % (Auto) 75.6 (45.0-80.0) % Lymph % (Auto) 13.3 (10.0-50.0) % [place] % (Auto) 10.3 (2.0-14.0) % Eos % (Auto) 0.6 (0.0-5.0) % Baso % (Auto) 0.2 (0.0-2.0) % Neut # (Auto) 13.32 H (1.40-7.00) K/uL Lymph # (Auto) 2.34 (0.50-3.50) K/uL [place] # (Auto) 1.81 H (0.00-1.00) K/uL Eos # (Auto) 0.10 (0.00-0.50) K/uL Baso # (Auto) 0.04 (0.00-0.20) K/uL Sodium 137 (136-145) mmol/L Potassium 4.6 (3.5-5.1) mmol/L Chloride 106 (98-107) mmol/L Carbon Dioxide 27.6 (21.0-32.0) mmol/L BUN 27 H (7-18) mg/dL Creatinine 1.07 (0.51-1.17) mg/dL Est Cr Clr Drug Dosing 69.75 mL/min Estimated GFR (MDRD) > 60 mL/min Glucose 107 H (74-106) mg/dL Calcium 9.2 (8.5-10.1) mg/dL Total Bilirubin 1.2 H (0.2-1.0) mg/dL AST 33 (15-37) U/L ALT 52 (12-78) U/L Alkaline Phosphatase 89 (46-116) IU/L Troponin I 0.023 (0.000-0.056) ng/mL C-Reactive Protein < 0.9 (<=0.9) mg/dL Total Protein 6.9 (6.4-8.2) g/dL Albumin 2.5 L (3.4-5.0) g/dL 01/28/18 Range/Units 07:05 WBC (4.0-10.2) K/uL RBC (4.33-5.41) M/uL Hgb (13.1-16.8) g/dL Hct (39.0-49.0) % MCV (84.0-98.0) fL MCH (28.2-33.3) pg MCHC (31.7-36.0) g/dL RDW (11.2-14.1) % Plt Count (150-350) K/uL Neut % (Auto) (45.0-80.0) % Lymph % (Auto) (10.0-50.0) % [place] % (Auto) (2.0-14.0) % Eos % (Auto) (0.0-5.0) % Baso % (Auto) (0.0-2.0) % Neut # (Auto) (1.40-7.00) K/uL Lymph # (Auto) (0.50-3.50) K/uL [place] # (Auto) (0.00-1.00) K/uL Eos # (Auto) (0.00-0.50) K/uL Baso # (Auto) (0.00-0.20) K/uL Sodium (136-145) mmol/L Potassium (3.5-5.1) mmol/L Chloride (98-107) mmol/L Carbon Dioxide (21.0-32.0) mmol/L BUN (7-18) mg/dL Creatinine (0.51-1.17) mg/dL Est Cr Clr Drug Dosing mL/min Estimated GFR (MDRD) mL/min Glucose (74-106) mg/dL Calcium (8.5-10.1) mg/dL Total Bilirubin (0.2-1.0) mg/dL AST (15-37) U/L ALT (12-78) U/L Alkaline Phosphatase (46-116) IU/L Troponin I (0.000-0.056) ng/mL C-Reactive Protein 0.2 (<=0.9) mg/dL Total Protein (6.4-8.2) g/dL Albumin (3.4-5.0) g/dL AMBER Results - Last 24 hrs: Microbiology 01/26/18 21:20 Stool Occult Blood (AMBER) - Final Stool / Feces NEGATIVE OCCULT BLOOD Med Orders - Current: Current Medications Acetaminophen (Tylenol Extra Strength) 1,000 mg PO TID PRN PRN Reason: Pain Acetaminophen (Tylenol) 650 mg PO Q4H PRN PRN Reason: Pain Acyclovir (Zovirax) 400 mg PO BID [facility] Last Admin: 01/27/18 17:15 Dose: 400 mg Albuterol (Proventil Hfa) 0 puff INH Q4H PRN PRN Reason: sob Apixaban (Eliquis) 5 mg PO BID [facility] Last Admin: 01/27/18 17:15 Dose: 5 mg Cholecalciferol (Vitamin D3) 1,000 units PO BID [facility] Last Admin: 01/27/18 17:15 Dose: 1,000 units Clobetasol Propionate (Clobetasol Propionate 0.05%) 0 gm TOP BID PRN PRN Reason: excema Cyanocobalamin (Vitamin B12) 1,000 mcg PO BEDTIME [facility] Last Admin: 01/27/18 19:47 Dose: 1,000 mcg Dexamethasone (Dexamethasone) 40 mg PO Th@0800 [facility] Diltiazem HCl (Cardizem Cd) 120 mg PO QPM [facility] Last Admin: 01/27/18 17:15 Dose: 120 mg Sodium Chloride (Normal Saline) 250 mls @ 125 mls/hr IV ASDIRECTED [facility] Last Admin: 01/28/18 09:17 Dose: 125 mls/hr Latanoprost (Xalatan 0.005% Ophth Soln) 0 ml EYEBOTH BEDTIME [facility] Last Admin: 01/27/18 19:52 Dose: Not Given Magnesium Oxide (Magnesium Oxide) 400 mg PO BID [facility] Stop: 01/28/18 18:00 Last Admin: 01/27/18 17:15 Dose: 400 mg Magnesium Oxide (Magnesium Oxide) 400 mg PO DAILY [facility] Metoprolol Succinate (Toprol Xl) 50 mg PO Q12HR [facility] Last Admin: 01/27/18 19:48 Dose: 50 mg Mometasone Furoate (Asmanex 220 Mcg) 0 puff INH DAILY PRN PRN Reason: ASTHMA Non-Form Cyclophosphamide 600 Mg 600 mg PO TH@08 [facility] Non-Form Zolmitriptan Odt 5 Mg 5 mg PO DAILY PRN PRN Reason: migraine Omeprazole (Omeprazole) 20 mg PO BEDTIME [facility] Last Admin: 01/27/18 19:47 Dose: 20 mg Ondansetron HCl (Zofran Odt) 4 mg PO Q6H PRN PRN Reason: Nausea Last Admin: 01/28/18 05:08 Dose: 4 mg Prochlorperazine Maleate (Compazine) 10 mg PO Q6H PRN PRN Reason: NAUSEA Last Admin: 01/28/18 05:46 Dose: 10 mg Simvastatin (Zocor) 10 mg PO QAM [facility] Last Admin: 01/27/18 10:13 Dose: 10 mg Sodium Chloride (Saline Flush) 10 ml FLUSH ASDIRECTED PRN PRN Reason: Keep Vein Open Last Admin: 01/28/18 08:53 Dose: 10 ml Sodium Chloride (Saline Flush) 10 ml FLUSH Q12HR PRN PRN Reason: Keep Vein Open Temazepam (Restoril) 15 mg PO BEDTIME PRN PRN Reason: Insomnia Last Admin: 01/26/18 21:59 Dose: 15 mg Discontinued Medications Diltiazem HCl (Diltiazem) 10 mg IVPUSH ONETIME ONE Stop: 01/26/18 19:51 Last Admin: 01/26/18 20:01 Dose: 10 mg Diltiazem HCl (Cardizem Cd) 120 mg PO ONETIME ONE Stop: 01/26/18 20:12 Last Admin: 01/26/18 20:18 Dose: 120 mg Famotidine (Pepcid) 40 mg IVPUSH ONETIME ONE Stop: 01/26/18 19:50 Last Admin: 01/26/18 20:03 Dose: 40 mg Furosemide (Lasix) 40 mg IVPUSH Q12H [facility] Last Admin: 01/27/18 12:08 Dose: Not Given Non-Formulary Medication (Rizatriptan [Maxalt]) 10 mg PO DAILY PRN PRN Reason: Migraine Omeprazole (Omeprazole) 20 mg PO BEDTIME [facility] Ondansetron HCl (Zofran) 4 mg IVPUSH ONETIME ONE Stop: 01/28/18 08:27 Last Admin: 01/28/18 08:52 Dose: 4 mg Pantoprazole Sodium (Protonix Iv) 40 mg IVPUSH ONETIME ONE Stop: 01/28/18 09:16 Last Admin: 01/28/18 09:18 Dose: 40 mg Potassium Chloride (Klor-Con M20) 20 meq PO BID [facility] Last Admin: 01/27/18 17:15 Dose: 20 meq
[2018-01-28] MEDS: Apixaban 5 MG Tab PO SCH ×2 (09:43→17:03)
[2018-01-28] MEDS: Metoprolol Succinate 50 MG Tab.ER PO SCH ×2 (09:43→20:13)
[2018-01-28] MEDS: Magnesium Oxide 400 MG Tab PO SCH ×2 (09:56→17:04)
[2018-01-28] MEDS: Simvastatin 10 MG Tab PO SCH (09:57)
[2018-01-28] MEDS: Acyclovir 200 MG Cap PO SCH ×2 (09:57→17:04)
[2018-01-28] MEDS: Cholecalciferol (Vitamin D3) 1,000 Unit Tab PO SCH ×2 (09:57→17:04)
[2018-01-28] MEDS: Potassium Chloride 20 MEQ Tab.ER PO SCH (09:58)
[2018-01-28] MEDS: Diltiazem 120 MG Cap.CD PO SCH (17:03)
[2018-01-28] MEDS ORDERED: Sodium Chloride 0.9% 1,000 ML IV SCH (19:45)
[2018-01-28] MEDS: Cyanocobalamin (Vitamin B12) 1,000 MCG Tab PO SCH (20:07)
[2018-01-28] MEDS: Omeprazole 20 MG Cap.CR PO SCH (20:07)
[2018-01-28] MEDS: Latanoprost 0.005% Ophth Soln 2.5 ML Bottle EYEBOTH SCH (20:14)
[2018-01-29 07:02] LABS: CHLORIDE,CL 106 mmol/L (98-107); SODIUM,NA 139 mmol/L (136-145)
[2018-01-29 07:25] VITALS: BP 110/62
[2018-01-29] MEDS: Cholecalciferol (Vitamin D3) 1,000 Unit Tab PO SCH (07:55)
[2018-01-29] MEDS: Apixaban 5 MG Tab PO SCH (07:55)
[2018-01-29] MEDS: Simvastatin 10 MG Tab PO SCH (07:55)
[2018-01-29] MEDS: Acyclovir 200 MG Cap PO SCH (07:55)
[2018-01-29] MEDS: Metoprolol Succinate 50 MG Tab.ER PO SCH (08:36)
--- NOTE | 2018-01-29 08:38 | PCM.PN ---
- General Info Date of Service: 01/29/18 Admission Dx/Problem (Free Text): Afib with RVR Multiple Myeloma Diverticulosis History of Herpes Simplex Virus CKD Functional Status: Reports: Pain Controlled, Tolerating Diet - Review of Systems General: Reports: No Symptoms HEENT: Reports: No Symptoms Pulmonary: Reports: No Symptoms Cardiovascular: Reports: No Symptoms Gastrointestinal: Reports: No Symptoms (N/V none since yesterday, feeling much better today) Genitourinary: Reports: No Symptoms Musculoskeletal: Reports: No Symptoms Skin: Reports: No Symptoms Neurological: Reports: No Symptoms Psychiatric: Reports: No Symptoms - Patient Data Vitals - Most Recent: Last Vital Signs Temp 98.0 F 01/29/18 07:22 Pulse 69 01/29/18 07:22 Resp 16 01/29/18 07:22 BP 110/62 01/29/18 07:22 Pulse Ox 97 01/29/18 07:22 Weight - Most Recent: 182 lb 9.6 oz I&O - Last 24 Hours: Intake & Output 01/28/18 01/29/18 01/29/18 22:59 06:59 14:59 Intake Total 480 622 Output Total 600 Balance 480 22 Lab Results Last 24 Hours: Laboratory Results - last 24 hr 01/29/18 01/29/18 Range/Units 06:40 06:40 WBC 8.3 (4.0-10.2) K/uL RBC 4.55 (4.33-5.41) M/uL Hgb 14.2 D (13.1-16.8) g/dL Hct 40.4 (39.0-49.0) % MCV 88.8 (84.0-98.0) fL MCH 31.2 (28.2-33.3) pg MCHC 35.1 (31.7-36.0) g/dL RDW 14.6 H (11.2-14.1) % Plt Count 230 (150-350) K/uL Neut % (Auto) 51.8 (45.0-80.0) % Lymph % (Auto) 28.8 (10.0-50.0) % [place] % (Auto) 17.5 H (2.0-14.0) % Eos % (Auto) 1.4 (0.0-5.0) % Baso % (Auto) 0.5 (0.0-2.0) % Neut # (Auto) 4.30 (1.40-7.00) K/uL Lymph # (Auto) 2.40 (0.50-3.50) K/uL [place] # (Auto) 1.46 H (0.00-1.00) K/uL Eos # (Auto) 0.12 (0.00-0.50) K/uL Baso # (Auto) 0.04 (0.00-0.20) K/uL Sodium 139 (136-145) mmol/L Potassium 4.1 (3.5-5.1) mmol/L Chloride 106 (98-107) mmol/L Carbon Dioxide 27.0 (21.0-32.0) mmol/L BUN 22 H (7-18) mg/dL Creatinine 1.10 (0.51-1.17) mg/dL Est Cr Clr Drug Dosing 67.84 mL/min Estimated GFR (MDRD) > 60 mL/min Glucose 83 (74-106) mg/dL Calcium 8.3 L (8.5-10.1) mg/dL Jon Results Last 24 Hours: Microbiology 01/26/18 21:11 Urine Culture - Final Urine, Clean Catch NO GROWTH AFTER 2 DAYS Med Orders - Current: Current Medications Acetaminophen (Tylenol Extra Strength) 1,000 mg PO TID PRN PRN Reason: Pain Acetaminophen (Tylenol) 650 mg PO Q4H PRN PRN Reason: Pain Acyclovir (Zovirax) 400 mg PO BID [facility] Last Admin: 01/29/18 07:55 Dose: 400 mg Albuterol (Proventil Hfa) 0 puff INH Q4H PRN PRN Reason: sob Apixaban (Eliquis) 5 mg PO BID [facility] Last Admin: 01/29/18 07:55 Dose: 5 mg Cholecalciferol (Vitamin D3) 1,000 units PO BID [facility] Last Admin: 01/29/18 07:55 Dose: 1,000 units Clobetasol Propionate (Clobetasol Propionate 0.05%) 0 gm TOP BID PRN PRN Reason: excema Cyanocobalamin (Vitamin B12) 1,000 mcg PO BEDTIME [facility] Last Admin: 01/28/18 20:07 Dose: 1,000 mcg Dexamethasone (Dexamethasone) 40 mg PO Th@0800 [facility] Diltiazem HCl (Cardizem Cd) 120 mg PO QPM [facility] Last Admin: 01/28/18 17:03 Dose: 120 mg Sodium Chloride (Normal Saline) 250 mls @ 125 mls/hr IV ASDIRECTED [facility] Last Admin: 01/28/18 09:17 Dose: 125 mls/hr Sodium Chloride (Normal Saline) 1,000 mls @ 50 mls/hr IV ASDIRECTED [facility] Last Admin: 01/28/18 20:03 Dose: 50 mls/hr Latanoprost (Xalatan 0.005% Ophth Soln) 0 ml EYEBOTH BEDTIME [facility] Last Admin: 01/28/18 20:14 Dose: Not Given Magnesium Oxide (Magnesium Oxide) 400 mg PO DAILY [facility] Metoprolol Succinate (Toprol Xl) 50 mg PO Q12HR [facility] Last Admin: 01/28/18 20:13 Dose: Not Given Mometasone Furoate (Asmanex 220 Mcg) 0 puff INH DAILY PRN PRN Reason: ASTHMA Non-Form Cyclophosphamide 600 Mg 600 mg PO TH@08 [facility] Non-Form Zolmitriptan Odt 5 Mg 5 mg PO DAILY PRN PRN Reason: migraine Omeprazole (Omeprazole) 20 mg PO BEDTIME [facility] Last Admin: 01/28/18 20:07 Dose: 20 mg Ondansetron HCl (Zofran Odt) 4 mg PO Q6H PRN PRN Reason: Nausea Last Admin: 01/28/18 15:08 Dose: 4 mg Prochlorperazine Maleate (Compazine) 10 mg PO Q6H PRN PRN Reason: NAUSEA Last Admin: 01/28/18 05:46 Dose: 10 mg Simvastatin (Zocor) 10 mg PO QAM [facility] Last Admin: 01/29/18 07:55 Dose: 10 mg Sodium Chloride (Saline Flush) 10 ml FLUSH ASDIRECTED PRN PRN Reason: Keep Vein Open Last Admin: 01/28/18 08:53 Dose: 10 ml Sodium Chloride (Saline Flush) 10 ml FLUSH Q12HR PRN PRN Reason: Keep Vein Open Temazepam (Restoril) 15 mg PO BEDTIME PRN PRN Reason: Insomnia Last Admin: 01/26/18 21:59 Dose: 15 mg Discontinued Medications Diltiazem HCl (Diltiazem) 10 mg IVPUSH ONETIME ONE Stop: 01/26/18 19:51 Last Admin: 01/26/18 20:01 Dose: 10 mg Diltiazem HCl (Cardizem Cd) 120 mg PO ONETIME ONE Stop: 01/26/18 20:12 Last Admin: 01/26/18 20:18 Dose: 120 mg Famotidine (Pepcid) 40 mg IVPUSH ONETIME ONE Stop: 01/26/18 19:50 Last Admin: 01/26/18 20:03 Dose: 40 mg Furosemide (Lasix) 40 mg IVPUSH Q12H [facility] Last Admin: 01/27/18 12:08 Dose: Not Given Magnesium Oxide (Magnesium Oxide) 400 mg PO BID [facility] Stop: 01/28/18 18:00 Last Admin: 01/28/18 17:04 Dose: Not Given Non-Formulary Medication (Rizatriptan [Maxalt]) 10 mg PO DAILY PRN PRN Reason: Migraine Omeprazole (Omeprazole) 20 mg PO BEDTIME [facility] Ondansetron HCl (Zofran) 4 mg IVPUSH ONETIME ONE Stop: 01/28/18 08:27 Last Admin: 01/28/18 08:52 Dose: 4 mg Pantoprazole Sodium (Protonix Iv) 40 mg IVPUSH ONETIME ONE Stop: 01/28/18 09:16 Last Admin: 01/28/18 09:18 Dose: 40 mg Potassium Chloride (Klor-Con M20) 20 meq PO BID [facility] Last Admin: 01/28/18 09:58 Dose: Not Given - Exam General: Alert, Oriented, Cooperative, No Acute Distress HEENT: Pupils Equal, Pupils Reactive, EOMI, Mucous Membr. Moist/Star Neck: Supple, Trachea Midline, No JVD Lungs: Clear to Auscultation, Normal Respiratory Effort Cardiovascular: Regular Rate, Irregular Rhythm GI/Abdominal Exam: Normal Bowel Sounds, Soft, Non-Tender, No Organomegaly, No Distention, No Abnormal Bruit Extremities: Normal Inspection, No Pedal Edema Peripheral Pulses: 1+: Dorsalis Pedis (L), Dorsalis Pedis (R) Skin: Warm, Dry, Intact Neurological: No New Focal Deficit Psy/Mental Status: Alert, Normal Affect, Normal Mood - Problem List & Annotations (1) Atrial fibrillation SNOMED Code(s): 72008408 Code(s): I48.91 - UNSPECIFIED ATRIAL FIBRILLATION Status: Acute Priority : High Current Visit: Yes Qualifiers: Atrial fibrillation type: chronic Qualified Code(s): I48.2 - Chronic atrial fibrillation (2) Hypertension SNOMED Code(s): 42183754 Code(s): I10 - ESSENTIAL (PRIMARY) HYPERTENSION Status: Acute Current Visit: Yes Qualifiers: Hypertension type: essential hypertension Qualified Code(s): I10 - Essential (primary) hypertension (3) Monoclonal gammopathy SNOMED Code(s): 299822147 Code(s): D47.2 - MONOCLONAL GAMMOPATHY Status: Chronic Priority: Medium Current Visit: Yes Annotation/Comment:: . (4) Renal insufficiency SNOMED Code(s): 397206835, 944639322 Code(s): N28.9 - DISORDER OF KIDNEY AND URETER, UNSPECIFIED Status: Chronic Priority: Medium Current Visit: Yes (5) Leukocytosis SNOMED Code(s): 598230043, 439404119 Code(s): D72.829 - ELEVATED WHITE BLOOD CELL COUNT, UNSPECIFIED Status: Acute Priority: Medium Current Visit: No Onset Date: 11/08/17 Qualifiers: Leukocytosis type: bandemia Qualified Code(s): D72.825 - Bandemia Annotation/Comment:: WBC increased from ER evaluation, no signs of infection. Chest Xray and urine reviewed. CRP within normal limits. Patient takes loading dose of steroids prior to chemo which was given 01/26/2018 (6) Dehydration SNOMED Code(s): 35245345 Code(s): E86.0 - DEHYDRATION Status: Acute Current Visit: Yes Annotation/Comment:: Patient started with N/V unable to keep liquide done, BP dropped . patient needed IV hydration - Problem List Review Problem List Initiated/Reviewed/Updated: Yes - My Orders Last 24 Hours: My Active Orders 01/28/18 09:15 Sodium Chloride 0.9% [Normal Saline] 250 ml IV ASDIRECTED 01/28/18 09:30 Ready for Discharge [RC] PER UNIT ROUTINE 01/28/18 19:25 Patient Status [ADT] Routine 01/29/18 18:00 Magnesium Oxide 400 mg PO DAILY - Plan Plan:: 01/27/2018 Patient is feeling good, no chest pain, denies shortness of breath, denies dizziness. Labs reviewed, increase in WBC , negative CRP possibly due to steroid load patient took prior to chemo yesterday and stress of RVR of A fib. Has history of diverticulitis, denies abdominal pain. Patient received a dose of Digoxin yesterday at [facility] with his chemo injection for rapid heart rate without relief. Patient has had a cardiac ablation done about a year ago, continues to doctor with cardiology and has been tried on various different medications to control his heart rate. Next step is for the patient to see pulmonology but he is unsure why. Will obtain records from [facility]. Recheck labs in the morning. Will consult with Dr Gould. Patient to be in reverse isolation. Continue on telemetry. Patient verbalizes understanding and agreed to the plan of care. Adjust Lasix, patient has CKD and Cr trended upward. Opal Dale CNP 01/28/2018 Patient started with N/V early this morning, states from eating pineapple yesterday as he has done that before. Had some loose stools yesterday which he states he gets after chemo and medications. Denies abdominal pain. No fever. labs reviewed, Cr improved, Lasix stopped and Chest Xray reviewed. WBC coming down. CRP remain within normal limits. 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 patient was started on Diltiazem last hospitalization but patient unsure why he wasnt taking it. Patient has been responding to Diltiazem with rate control, will continue upon discharge. Patient given Zofran and compazine with some improvement, will give IV Protonix and 250cc of fluids. Patient is wanting to go home, discussed with patient that he will need to be able to keep down oral medications before discharge. Will re evaluate later today and possible discharge if the patient is feeling better. Opla Dale CNP 01/29/2018 Patient started with N/V yesterday which continued into the day and night, unable to be discharged yesterday. BP dropped, patient required IV fluids. Feeling much better today , ate breakfast. Will discharge today. Patient is to remain on Diltiazem and monitor BP and P at home. Continue with appointments set up with oncology and cardiology. Opal Dale CNP
[2018-01-29] MEDS ORDERED: Magnesium Oxide 400 MG Tab PO SCH (18:00)
[2018-02-02] MEDS ORDERED: [UNRECOGNIZED DRUG - REMARK] PO SCH (08:00)
[2018-02-02] MEDS ORDERED: Dexamethasone 2 MG Tab PO SCH (08:00)
== END 2018-01-29 09:35 | disposition home or self-care (01) | DRG 201 ==
LOC: LL.ED 19:30 → LL.MS 20:45 → OBSVTOIN 01-28 19:25
PROVIDERS: ADMIT Family Medicine; ATTEND Family Medicine
DX: I48.2 Chronic atrial fibrillation (principal); C90.00 Multiple myeloma not having achieved remission; I50.9 Heart failure, unspecified; J84.10 Pulmonary fibrosis, unspecified; I13.0 Hypertensive heart and chronic kidney disease with heart failure and stage 1 through stage 4 chronic kidney disease, or unspecified chronic kidney disease; E85.9 Amyloidosis, unspecified; E88.09 Other disorders of plasma-protein metabolism, not elsewhere classified; M41.9 Scoliosis, unspecified; D47.2 Monoclonal gammopathy; E83.42 Hypomagnesemia; N18.3 Chronic kidney disease, stage 3 (moderate); I95.9 Hypotension, unspecified; K76.0 Fatty (change of) liver, not elsewhere classified; K44.9 Diaphragmatic hernia without obstruction or gangrene; E86.0 Dehydration; I10 Essential (primary) hypertension; N28.9 Disorder of kidney and ureter, unspecified; D72.829 Elevated white blood cell count, unspecified; R11.2 Nausea with vomiting, unspecified; T38.0X5A Adverse effect of glucocorticoids and synthetic analogues, initial encounter; T50.1X5A Adverse effect of loop [high-ceiling] diuretics, initial encounter; I44.1 Atrioventricular block, second degree; J30.9 Allergic rhinitis, unspecified; H40.9 Unspecified glaucoma; H91.90 Unspecified hearing loss, unspecified ear; H54.7 Unspecified visual loss; H91.13 Presbycusis, bilateral; R01.1 Cardiac murmur, unspecified; E78.5 Hyperlipidemia, unspecified; J44.9 Chronic obstructive pulmonary disease, unspecified; K57.90 Diverticulosis of intestine, part unspecified, without perforation or abscess without bleeding; K29.70 Gastritis, unspecified, without bleeding; K21.9 Gastro-esophageal reflux disease without esophagitis; K64.9 Unspecified hemorrhoids; N40.0 Benign prostatic hyperplasia without lower urinary tract symptoms; G89.29 Other chronic pain; M54.9 Dorsalgia, unspecified; M54.2 Cervicalgia; M43.17 Spondylolisthesis, lumbosacral region; G43.909 Migraine, unspecified, not intractable, without status migrainosus; L30.9 Dermatitis, unspecified; R73.9 Hyperglycemia, unspecified; M15.9 Polyosteoarthritis, unspecified; B00.9 Herpesviral infection, unspecified; Z86.010 Personal history of colon polyps; Z88.7 Allergy status to serum and vaccine; Z88.8 Allergy status to other drugs, medicaments and biological substances; Z91.013 Allergy to seafood; Z79.01 Long term (current) use of anticoagulants; Z79.899 Other long term (current) drug therapy
CPT/HCPCS: 36415; 71045; 80048; 80053; 80061; 81001; 82247; 82248; 82272; 82550; 82553; 83036; 83605; 83735; 83880; 84443; 84484; 84550; 85025; 85379; 85610; 85730; 86140; 87086; 93005; 96374; 96375; 99285; A9270-GY; C9113; J1940; J2405; J3490; J7030; J7050; Q0164; S0028

== ENCOUNTER 2018-06-03 13:04 | Emergency (ER) | payer BC, MEDICARE ==
[2018-06-03] MEDS ORDERED: Sodium Chloride 0.9% 10 ML Syringe FLUSH PRN (13:15)
[2018-06-03] MEDS ORDERED: Sodium Chloride 0.9% 1,000 ML IV SCH (13:30)
--- NOTE | 2018-06-03 13:50 | EDM.PDOC ---
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 home this was an auto transplant therefore patient is currently on no immunosuppressive medications patient admits to falling twice last night but denies any head injury or trauma according to [facility] patient has been dizzy in the past Onset: Gradual Duration: Day(s):, Getting Worse Location: Reports: Generalized Severity: Mild Improves with: Reports: None Worsens with: Reports: Other (Activities) Context: Reports: Other (Generalized weakness) Associated Symptoms: Reports: Nausea/Vomiting, Other (Patient has had significant diarrhea for the last couple months since chemotherapy started) - Related Data Allergies Allergy/AdvReac Type Severity Reaction Status Date / Time ezetimibe [From Vytorin] Allergy Muscle Verified 01/26/18 19:50 Aches iodine Allergy Airway Verified 01/26/18 19:50 Tightness shellfish derived Allergy Airway Verified 01/26/18 19:50 Tightness Tetanus Vaccines and Toxoid Allergy Hives Verified 01/26/18 19:50 [Tetanus Vaccines & Toxoid] fish Allergy Intermediate Airway Uncoded 01/26/18 19:50 Tightness Home Meds: Home Meds Acyclovir [Zovirax] 10 ml PO BID 06/03/18 [History] Apixaban [Eliquis] 5 mg PO BID 06/03/18 [History] Calcium Carbonate/Vitamin D3 [Calcium Carb 500 MG] 1 cap PO BID PRN 06/03/18 [ History] Clobetasol [Clobetasol 0.05%] 1 applic TOP ASDIRECTED PRN 06/03/18 [History] Diltiazem [Cardizem CD] 1 cap PO DAILY 06/03/18 [History] Doxycycline [Doxycycline Monohydrate] 100 mg PO DAILY 06/03/18 [History] Fluticasone Propionate [Flovent HFA 110 MCG] 1 puff INH BID 06/03/18 [History] Latanoprost [Xalatan 0.005% Oph Soln] 1 drop EYEBOTH BEDTIME 06/03/18 [History ] Loperamide [Imodium AD] 2 mg PO ASDIRECTED PRN MDD 16 mg 06/03/18 [History] Metoprolol Tartrate [Lopressor] 50 mg PO BID 06/03/18 [History] Omeprazole 20 mg PO BIDAC 06/03/18 [History] Ondansetron [Zofran] 8 mg PO Q8H PRN 06/03/18 [History] Phytonadione [Mephyton] 10 mg PO ONETIME 06/03/18 [History] Potassium Chloride 40 meq PO DAILY 06/03/18 [History] Prochlorperazine [Compazine] 10 mg PO Q6H PRN 06/03/18 [History] Propafenone HCl [Rythmol Sr] 1 tab PO BID 06/03/18 [History] Sulfamethoxazole/Trimethoprim [Bactrim 400-80 MG] 1 tab PO DAILY 06/03/18 [ History] oxyCODONE 5 mg PO Q4HR PRN 06/03/18 [History] Past Medical History HEENT History: Reports: Allergic Rhinitis, Cataract, Glaucoma, Hard of Hearing, Impaired Vision, Other (See Below). Denies: Macular Degeneration, Retinal Detachment Other HEENT History: Pt wears glasses. Allergic rhinitis to pollen, pets, etc. Mild bilateral presbycusis with no current hearing aid therapy Cardiovascular History: Reports: Afib, Arrhythmia, Heart Failure, Heart Murmur, High Cholesterol, Hypertension, Other (See Below). Denies: Aneurysm, Blood Clots/VTE/DVT, CAD, IA Other Cardiovascular History: Chronic atrial fibrillation with current anticoagulation therapy and previous ablation as below however still refractory. First-degree AV block in the past with borderline junctional rhythm and possible intermittent second degree AV block on 11/10/17. Benign heart murmur as a child. Fatty liver secondary to hyperlipidemia. Respiratory History: Reports: Asthma, COPD, Intubation, Previous, Pulmonary Fibrosis, Other (See Below). Denies: PE, Pneumothorax, Sleep Apnea Other Respiratory History: Childhood asthma with additional COPD and pulmonary fibrosis Gastrointestinal History: Reports: Colon Polyp, Diverticulosis, Gastritis, GERD , Hemorrhoids, Hiatal Hernia, Other (See Below). Denies: Bowel Obstruction, Celiac Disease, Cholelithiasis, Chronic Constipation, Chronic Diarrhea, Fecal Incontinence, Hepatitis, Inflammatory Bowel Disease, Irritable Bowel Syndrome, Jaundice, Pancreatitis, PUD Other Gastrointestinal History: History of unknown type of benign distant colonic polyps. Recurrent diverticulitis including in April 2017, May 2015, July 2013 and May 2012 Genitourinary History: Reports: BPH, Chronic Renal Insuffiency, Other (See Below ). 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 Denies: Amputation, Fracture, Gout , RA, SLE Other Musculoskeletal History: Mild Scoliosis, mild grade 1 L5-S1 spondylolisthesis. Right distal biceps tendon tear diagnosed on 07/30/14 with repair as below Neurological History: Reports: Headaches, Chronic, Migraines. Denies: Cerebral Aneurysms, Concussion, CVA, MS, Neuropathy, Peripheral, Parkinson's, Seizure, TIA Psychiatric History: Reports: None. Denies: Abuse, Victim of, ADD, ADHD, Addiction, Anxiety, Dementia, Depression, Psych Hospitalization(s), PTSD, Suicide Attempt, Suicidal Ideation Endocrine/Metabolic History: Reports: None. Denies: Diabetes, Type I, Diabetes , Type II, Diabetes Mellitus, Type 3c, Hypothyroidism, IDDM Hematologic History: Reports: Anemia, B12 Deficiency, Iron Deficiency, Other ( See Below) Other Hematologic History: Multiple myeloma as below. Distant iron deficiency anemia requiring transfusions in his 20s Immunologic History: Reports: Immunosuppression, Other (See Below). Denies: AIDS, HIV, SLE Other Immunologic History: Multiple myeloma. 06/03/2018 patient underwent stem cell transplant transplant approximately 31 days ago May 01, 2018 sent home on 05/30/2018 Oncologic (Cancer) History: Reports: Other (See Below). Denies: Basal Cell Carcinoma, Colon, Hodgkin's Lymphoma, Leukemia, Lymphoma, Malignant Melanoma, Non-Hodgkin's Lymphoma, Squamous Cell Carcinoma Other Oncologic History: multiple myeloma/monoclonal gammopathy initially diagnosed in 2008 with initiation of chemotherapy in January 2018 Dermatologic History: Reports: Angiodema, Eczema, Other (See Below) Other Dermatologic History: Eczema starting as a child. Angioedema, dyspnea, dysphagia with fish and iodine exposure - Infectious Disease History Infectious Disease History: Reports: Chicken Pox, Measles, Mumps, Shingles. Denies: C-Difficile, Meningitis, Mononucleosis, MRSA, Pertussis (Whooping Cough) , Rubella, Scarlet Fever, TB, VRE - Past Surgical History Head Surgeries/Procedures: Reports: None HEENT Surgical History: Reports: Cataract Surgery, Naso-Sinus Surgery, Oral Surgery, Other (See Below). Denies: Adenoidectomy, Eye Surgery, Laser Surgery, LASIK, Myringotomy w Tube(s), Tonsillectomy Other HEENT Surgeries/Procedures: Nasal surgery in his 30s. Bilateral cataract surgery with right sided surgery in 2015 with left-sided surgery in 2017. Multiple teeth extractions with complete upper dentures and partial lowers Cardiovascular Surgical History: Reports: Cardiac Ablation, Other (See Below). Denies: Coronary Artery Bypass, Pacer, Percutaneous Transluminal Angioplasty, Vascular Surgery Other Cardiovascular Surgeries/Procedures: Cardiac ablation on 09/14/2016 Respiratory Surgical History: Reports: None. Denies: Thoracentesis GI Surgical History: Reports: Colonoscopy, EGD, Polypectomy, Other (See Below). Denies: Appendectomy, Cholecystectomy, Hernia, Abdominal, Hernia, Inguinal, Hernia Repair/Other Other GI Surgeries/Procedures: Last EGD and colonoscopy on 04/21/17 with negative H. pylori biopsy at that time. Note distant polypectomy several years ago as above. Previous colonoscopy in July 2012. Male Surgical History: Reports: Circumcision, Other (See Below) Other Male Surgeries/Procedures: CT-guided renal biopsy on 12/08/17. Circumcision as an . Endocrine Surgical History: Reports: None. Denies: Thyroid Biopsy Neurological Surgical History: Reports: None. Denies: C-Spine, Discectomy, Laminectomy, Lumbar Spine, Sacral Spine, Spinal Fusion, Vertebroplasty Musculoskeletal Surgical History: Reports: Other (See Below) Other Musculoskeletal Surgeries/Procedures:: Right distal biceps tendon tear repair on 08/13/14 Oncologic Surgical History: Reports: Bone Marrow Aspiration, Other (See Below) Other Oncologic Surgeries/Procedures: Bone marrow needle aspiration biopsy at [facility] in November 2017 Dermatological Surgical History: Reports: Other (See Below) - Past Imaging History Past Imaging History: Reports: Angiography (Negative heart catheterization on ), Cardiac Echo (Last echocardiogram on 10/04/17 with ejection fraction of 50 -55% with stable findings from previous evaluations on 09/14/16 and 03/16/16), CAT Scan (CT guided renal biopsy on 12/08/17. Negative CTA of the chest on . CT of the abdomen and pelvis with contrast on 04/13/17, 05/28/15, 07/23/13, and 06/01/12. CT of the brain on 12/18/14), MRI (Right upper arm on 07/30/14), PFT (11/05/13), Stress Testing (Cardiolite stress test on 10/17/17 did indicate possible inferolateral cardiac ischemia with ejection fraction of 55% and recurrence of his atrial fibrillation), Ultrasound (Last renal ultrasound on 11/04 with previous abdominal ultrasound on 01/29/09 and renal ultrasound on ), Other (See Below) (Bone survey for his multiple myeloma on 01/15/14) Social & Family History - Family History HEENT: Reports: Impaired Vision, Other (See Below). Denies: Glaucoma, Macular Degeneration Other HEENT Family History: Father with diabetic retinopathy Cardiac: Reports: Bypass, CAD, Cardiomyopathy, Heart Failure, High Cholesterol, IA, PVD/COD, Stent, Other (See Below). Denies: Afib, Aneurysm, Arrhythmia, Blood Clots/VTE/DVT, Hypertension, Syncope Other Cardiac Family History: Father with history of recurrent MIs initially at about age 55 with history of CABG at that time. Paternal grandfather with fatal IA in his 70s. Mother with history of fatal CHF at age 80 with additional history of hyperlipidemia and carotid occlusive disease requiring surgery. Brother with no history of IA however total of 10 PTCA/stent placements since age 35 Respiratory: Reports: None. Denies: Asthma, COPD, PE, Pneumothorax, Sleep Apnea GI: Reports: Diverticulosis, Other (See Below). Denies: Celiac Disease, Colon Polyps, GERD, GI bleed, Inflammatory Bowel Disease, Irritable Bowel Syndrome, PUD Other GI Family History: mother with diverticulosis : Reports: Diabetic Nephropathy, Renal Disease/Insufficiency, Other (See Below ). Denies: Renal Calculus Other Family History: Father with diabetic nephropathy OBGYN: Reports: None. Denies: Endometriosis, Recurrent Spontaneous Musculoskeletal: Reports: None. Denies: Arthritis, Gout, RA, SLE Neurological: Reports: None. Denies: Alzheimers Disease, CVA, Dementia, Migraines, MS, Neuropathy, Diabetic, Neuropathy, Peripheral, Parkinson's, Seizure, TIA Psychiatric: Reports: Anxiety, Depression, Other (See Below). Denies: Abuse, Victim of, ADD, ADHD, Psych Hospitalization(s), PTSD, Suicide Attempt Other Psychiatric Family History: Father with anxiety depression disorder Endocrine/Metabolic: Reports: Diabetes, type II, IDDM, Other (See Below). Denies: Diabetes, Type I, Diabetes Mellitus, Type 3c, Hypothyroidism Other Endocrine/Metabolic Family History: IDDM in father and sister Hematologic: Reports: None. Denies: Anemia, Transfusion Reaction Immunologic: Reports: None. Denies: AIDS, HIV, SLE Dermatologic: Reports: None. Denies: Eczema, Psoriasis Oncologic: Reports: Breast, Other (See Below). Denies: Colon, Hodgkin's Lymphoma, Leukemia, Non-Hodgkin's Lymphoma, Prostate, Skin Other Oncologic Family History: Sister with breast cancer in her 60s - Caffeine Use Caffeine Use: Reports: Coffee (3 cups per day), Soda (1 soda per day). 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 Denies: Fever HEENT: Reports: Rhinitis, Vision Change Respiratory: Reports: Cough (Dry hacking cough) Cardiovascular: Reports: Dyspnea on Exertion, Edema, Lightheadedness. Denies: Palpitations Endocrine: Reports: No Symptoms GI/Abdominal: Reports: Diarrhea, Decreased Appetite. Denies: Abdominal Pain : Reports: No Symptoms Musculoskeletal: Reports: No Symptoms Skin: Reports: Bruising Neurological: Reports: Trouble Speaking, Other (Generalized weakness) Psychiatric: Reports: No Symptoms Hematologic/Lymphatic: Reports: Easy Bruising Immunologic: Reports: Food Allergy, Environmental Allergy (Environmental allergies) ED EXAM, GENERAL - Physical Exam Exam: See Below Exam Limited By: No Limitations General Appearance: Alert, Mild Distress, Thin (Significant weight loss) Course - Vital Signs Last Recorded V/S: Last Vital Signs Temp 98.6 F 06/03/18 13:05 Pulse 122 H 06/03/18 14:56 Resp 21 H 06/03/18 14:56 BP 107/61 06/03/18 14:56 Pulse Ox 95 06/03/18 14:56 - Orders/Labs/Meds Orders: Active Orders 24 hr Category Date Time Status EKG Documentation Completion [RC] ASDIRECTED Care 06/03/18 13:16 Active Telemetry Monitoring [Cardiac Monitoring] [RC] . Care 06/03/18 13:44 Active DIRECTED Chest 1V Frontal [CR] Stat Exams 06/03/18 14:13 Taken CULTURE BLOOD [BC] Stat Lab 06/03/18 13:40 Received CULTURE BLOOD [BC] Stat Lab 06/03/18 13:45 Received UA W/MICROSCOPIC [URIN] Stat Lab 06/03/18 13:18 Ordered Cefepime [Maxipime] 2 gm Med 06/03/18 15:37 Ordered Sodium Chloride 0.9% [Normal Saline] 50 ml IV ONETIME Sodium Chloride 0.9% [Normal Saline] 1,000 ml Med 06/03/18 13:30 Active IV ASDIRECTED Sodium Chloride 0.9% [Saline Flush] Med 06/03/18 13:15 Active 10 ml FLUSH ASDIRECTED PRN Blood Culture x2 Reflex Set [OM.PC] Stat Oth 06/03/18 13:14 Ordered Saline Lock Insert [OM.PC] Stat Oth 06/03/18 13:15 Ordered EKG 12 Lead [EK] Stat Ther 06/03/18 13:14 Ordered Medication Orders Sodium Chloride (Normal Saline) 1,000 mls @ 150 mls/hr IV ASDIRECTED GETACHEW Last Infusion: 06/03/18 14:39 Dose: 150 mls/hr Infusion: 06/03/18 14:31 Dose: 500 mls/hr Admin: 06/03/18 13:40 Dose: 150 mls/hr Cefepime HCl 2 gm/ Sodium (Chloride) 50 mls @ 100 mls/hr IV ONETIME ONE Stop: 06/03/18 16:06 Sodium Chloride (Saline Flush) 10 ml FLUSH ASDIRECTED PRN PRN Reason: Keep Vein Open Last Admin: 06/03/18 13:50 Dose: 10 ml Labs: Laboratory Tests 06/03/18 06/03/18 06/03/18 Range/Units 13:40 13:40 13:40 WBC 17.5 H (4.0-10.2) K/uL RBC 3.51 L (4.33-5.41) M/uL Hgb 9.7 L D (13.1-16.8) g/dL Hct 29.2 L (39.0-49.0) % MCV 83.2 L D (84.0-98.0) fL MCH 27.6 L (28.2-33.3) pg MCHC 33.2 (31.7-36.0) g/dL RDW 14.9 H (11.2-14.1) % Plt Count 288 (150-350) K/uL Neut % (Auto) 60.3 (45.0-80.0) % Lymph % (Auto) 24.9 (10.0-50.0) % [place] % (Auto) 10.5 (2.0-14.0) % Eos % (Auto) 4.1 (0.0-5.0) % Baso % (Auto) 0.2 (0.0-2.0) % Neut # (Auto) 10.54 H (1.40-7.00) K/uL Lymph # (Auto) 4.36 H (0.50-3.50) K/uL [place] # (Auto) 1.84 H (0.00-1.00) K/uL Eos # (Auto) 0.72 H (0.00-0.50) K/uL Baso # (Auto) 0.03 (0.00-0.20) K/uL Sodium 135 L (136-145) mmol/L Potassium 4.2 (3.5-5.1) mmol/L Chloride 100 (98-107) mmol/L Carbon Dioxide 27.0 (21.0-32.0) mmol/L BUN 14 (7-18) mg/dL Creatinine 1.10 (0.51-1.17) mg/dL Est Cr Clr Drug Dosing 64.43 mL/min Estimated GFR (MDRD) > 60 mL/min Glucose 111 H (74-106) mg/dL Lactic Acid 1.4 (0.4-2.0) mmol/L Calcium 8.9 (8.5-10.1) mg/dL Total Bilirubin 0.5 (0.2-1.0) mg/dL AST 28 (15-37) U/L ALT 29 (12-78) U/L Alkaline Phosphatase 195 H (46-116) IU/L Total Protein 5.5 L (6.4-8.2) g/dL Albumin 1.9 L (3.4-5.0) g/dL Meds: Medications Generic Name Dose Route Start Last Admin Trade Name Freq PRN Reason Stop Dose Admin Sodium Chloride 1,000 mls @ 150 mls/hr 06/03/18 13:30 06/03/18 14:39 Normal Saline IV 150 mls/hr ASDIRECTED GETACHEW Infusion Cefepime HCl 2 gm/ Sodium 50 mls @ 100 mls/hr 06/03/18 15:37 Chloride IV 06/03/18 16:06 ONETIME ONE Sodium Chloride 10 ml 06/03/18 13:15 06/03/18 13:50 Saline Flush FLUSH 10 ml ASDIRECTED PRN Administration Keep Vein Open Discontinued Medications Generic Name Dose Route Start Last Admin Trade Name Freq PRN Reason Stop Dose Admin Metronidazole 500 mg/ Premix 100 mls @ 100 mls/hr 06/03/18 15:15 IV 06/03/18 16:14 ONETIME ONE Vancomycin HCl 1 gm/ Sodium 250 mls @ 165 mls/hr 06/03/18 16:00 Chloride IV 06/03/18 17:30 ONETIME ONE Ceftriaxone Sodium 1 gm/ 100 mls @ 200 mls/hr 06/03/18 15:11 06/03/18 15:26 Sodium Chloride IV 06/03/18 15:40 200 mls/hr ONETIME ONE Administration Departure - Departure Time of Disposition: 15:18 Disposition: DC/Tfer to Acute Hospital 02 Condition: Serious Clinical Impression: Pneumonia, Bone marrow transplant status - Discharge Information *PRESCRIPTION DRUG MONITORING PROGRAM REVIEWED*: No *COPY OF PRESCRIPTION DRUG MONITORING REPORT IN PATIENT [place]: No Forms: ED Department Discharge Care Plan Goals: Patient workup for generalized weakness status post bone marrow transplant diagnosed with pneumonia discussed with hospitalist at [place] will start Rocephin and cephatime prior to transfer - My Orders Last 24 Hours: My Active Orders 06/03/18 13:14 Blood Culture x2 Reflex Set [OM.PC] Stat EKG 12 Lead [EK] Stat 06/03/18 13:15 Sodium Chloride 0.9% [Saline Flush] 10 ml FLUSH ASDIRECTED PRN Saline Lock Insert [OM.PC] Stat 06/03/18 13:16 EKG Documentation Completion [RC] ASDIRECTED 06/03/18 13:18 UA W/MICROSCOPIC [URIN] Stat 06/03/18 13:30 Sodium Chloride 0.9% [Normal Saline] 1,000 ml IV ASDIRECTED 06/03/18 13:40 CULTURE BLOOD [BC] Stat 06/03/18 13:44 Telemetry Monitoring [Cardiac Monitoring] [RC] . DIRECTED 06/03/18 13:45 CULTURE BLOOD [BC] Stat 06/03/18 14:13 Chest 1V Frontal [CR] Stat 06/03/18 15:37 Cefepime [Maxipime] 2 gm Sodium Chloride 0.9% [Normal Saline] 50 ml IV ONETIME - Assessment/Plan Last 24 Hours: My Active Orders 06/03/18 13:14 Blood Culture x2 Reflex Set [OM.PC] Stat EKG 12 Lead [EK] Stat 06/03/18 13:15 Sodium Chloride 0.9% [Saline Flush] 10 ml FLUSH ASDIRECTED PRN Saline Lock Insert [OM.PC] Stat 06/03/18 13:16 EKG Documentation Completion [RC] ASDIRECTED 06/03/18 13:18 UA W/MICROSCOPIC [URIN] Stat 06/03/18 13:30 Sodium Chloride 0.9% [Normal Saline] 1,000 ml IV ASDIRECTED 06/03/18 13:40 CULTURE BLOOD [BC] Stat 06/03/18 13:44 Telemetry Monitoring [Cardiac Monitoring] [RC] . DIRECTED 06/03/18 13:45 CULTURE BLOOD [BC] Stat 06/03/18 14:13 Chest 1V Frontal [CR] Stat 06/03/18 15:37 Cefepime [Maxipime] 2 gm Sodium Chloride 0.9% [Normal Saline] 50 ml IV ONETIME
[2018-06-03 14:14] LABS: CHLORIDE,CL 100 mmol/L (98-107); SODIUM,NA 135 mmol/L (136-145)
[2018-06-03] MEDS ORDERED: cefTRIAXone 1 GM in Sodium Chloride 0.9% 100 ML IV ONE (15:11)
[2018-06-03] MEDS ORDERED: metroNIDAZOLE/Normal Saline 500 MG in Premix Bag 1 BAG IV ONE (15:15)
[2018-06-03] MEDS ORDERED: Cefepime 2 GM in Sodium Chloride 0.9% 50 ML IV ONE (15:37)
[2018-06-03 16:56] VITALS: BP 101/59
== END 2018-06-03 16:20 ==
LOC: LL.ED 13:04
DX: J18.9 Pneumonia, unspecified organism (principal); Z94.81 Bone marrow transplant status; I13.0 Hypertensive heart and chronic kidney disease with heart failure and stage 1 through stage 4 chronic kidney disease, or unspecified chronic kidney disease; I50.9 Heart failure, unspecified; N18.3 Chronic kidney disease, stage 3 (moderate); E78.00 Pure hypercholesterolemia, unspecified; I48.2 Chronic atrial fibrillation; Z79.01 Long term (current) use of anticoagulants; Z79.899 Other long term (current) drug therapy; Z88.7 Allergy status to serum and vaccine; Z91.013 Allergy to seafood; Z88.8 Allergy status to other drugs, medicaments and biological substances
CPT/HCPCS: 36415; 71045; 80053; 83605; 85025; 87040; 93005; 96361; 96365; 99285; J0696; J7030; J7050

== ENCOUNTER 2018-07-08 17:48 | Emergency (ER) | payer BC, MEDICARE ==
[2018-07-08] MEDS ORDERED: Sodium Chloride 0.9% 10 ML Syringe FLUSH PRN (18:26)
[2018-07-08] MEDS ORDERED: Sodium Chloride 0.9% 1,000 ML IV SCH (18:30)
[2018-07-08] MEDS ORDERED: Diltiazem 25 MG/5 ML SDV IVPUSH ONE (21:00)
--- NOTE | 2018-07-08 21:35 | EDM.PDOC ---
ED HPI GENERAL MEDICAL PROBLEM - General Chief Complaint: Cardiovascular Problem Stated Complaint: racing heart Time Seen by Provider: 07/08/18 17:50 Source of Information: Reports: Patient History Limitations: Reports: No Limitations - History of Present Illness INITIAL COMMENTS - FREE TEXT/NARRATIVE: Patient is a 63-year-old well known to myself states that this morning he noticed his blood pressure to be low and his heart rate to be high this continued through the day and was brought in by his for evaluation patient states that he has not been drinking well although he feels good Onset: Today Duration: Hour(s):, Constant - Related Data Allergies Allergy/AdvReac Type Severity Reaction Status Date / Time ezetimibe [From Vytorin] Allergy Muscle Verified 07/08/18 17:55 Aches iodine Allergy Airway Verified 07/08/18 17:55 Tightness shellfish derived Allergy Airway Verified 07/08/18 17:55 Tightness Tetanus Vaccines and Toxoid Allergy Hives Verified 07/08/18 17:55 [Tetanus Vaccines & Toxoid] fish Allergy Intermediate Airway Uncoded 07/08/18 17:55 Tightness Home Meds: Home Meds Acyclovir [Zovirax] 10 ml PO BID 06/03/18 [History] Apixaban [Eliquis] 5 mg PO BID 06/03/18 [History] Calcium Carbonate/Vitamin D3 [Calcium Carb 500 MG] 1 cap PO BID PRN 06/03/18 [ History] Clobetasol [Clobetasol 0.05%] 1 applic TOP ASDIRECTED PRN 06/03/18 [History] Diltiazem [Cardizem CD] 1 cap PO DAILY 06/03/18 [History] Doxycycline [Doxycycline Monohydrate] 100 mg PO DAILY 06/03/18 [History] Fluticasone Propionate [Flovent HFA 110 MCG] 1 puff INH BID 06/03/18 [History] Latanoprost [Xalatan 0.005% Ophth Soln] 1 drop EYEBOTH BEDTIME 06/03/18 [History ] Loperamide [Imodium AD] 2 mg PO ASDIRECTED PRN MDD 16 mg 06/03/18 [History] Metoprolol Tartrate [Lopressor] 25 mg PO DAILY 06/03/18 [History] Omeprazole 20 mg PO DAILY 06/03/18 [History] Ondansetron [Zofran] 8 mg PO Q8H PRN 06/03/18 [History] Phytonadione [Mephyton] 10 mg PO ONETIME 06/03/18 [History] Prochlorperazine [Compazine] 10 mg PO Q6H PRN 06/03/18 [History] Propafenone HCl [Rythmol Sr] 1 tab PO BID 06/03/18 [History] Sulfamethoxazole/Trimethoprim [Bactrim 400-80 MG] 1 tab PO DAILY 06/03/18 [ History] oxyCODONE 5 mg PO Q4HR PRN 06/03/18 [History] Albuterol Sulfate [Proair Respiclick] 2 puff INH Q4H PRN 07/08/18 [History] Magnesium Oxide 400 mg PO DAILY 07/08/18 [History] Rizatriptan Benzoate [Rizatriptan] 10 mg PO Q2H PRN 07/08/18 [History] Past Medical History HEENT History: Reports: Allergic Rhinitis, Cataract, Glaucoma, Hard of Hearing, Impaired Vision, Other (See Below). Denies: Macular Degeneration, Retinal Detachment Other HEENT History: Pt wears glasses. Allergic rhinitis to pollen, pets, etc. Mild bilateral presbycusis with no current hearing aid therapy Cardiovascular History: Reports: Afib, Arrhythmia, Heart Failure, Heart Murmur, High Cholesterol, Hypertension, Other (See Below). Denies: Aneurysm, Blood Clots/VTE/DVT, CAD, GA Other Cardiovascular History: Chronic atrial fibrillation with current anticoagulation therapy and previous ablation as below however still refractory. First-degree AV block in the past with borderline junctional rhythm and possible intermittent second degree AV block on 11/10/17. Benign heart murmur as a child. Fatty liver secondary to hyperlipidemia. Respiratory History: Reports: Asthma, COPD, Intubation, Previous, Pulmonary Fibrosis, Other (See Below). Denies: PE, Pneumothorax, Sleep Apnea Other Respiratory History: Childhood asthma with additional COPD and pulmonary fibrosis Gastrointestinal History: Reports: Colon Polyp, Diverticulosis, Gastritis, GERD , Hemorrhoids, Hiatal Hernia, Other (See Below). Denies: Bowel Obstruction, Celiac Disease, Cholelithiasis, Chronic Constipation, Chronic Diarrhea, Fecal Incontinence, Hepatitis, Inflammatory Bowel Disease, Irritable Bowel Syndrome, Jaundice, Pancreatitis, PUD Other Gastrointestinal History: History of unknown type of benign distant colonic polyps. Recurrent diverticulitis including in April 2017, May 2015, July 2013 and May 2012 Genitourinary History: Reports: BPH, Chronic Renal Insuffiency, Other (See Below ). 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 Denies: Amputation, Fracture, Gout , RA, SLE Other Musculoskeletal History: Mild Scoliosis, mild grade 1 L5-S1 spondylolisthesis. Right distal biceps tendon tear diagnosed on 07/30/14 with repair as below Neurological History: Reports: Headaches, Chronic, Migraines. Denies: Cerebral Aneurysms, Concussion, CVA, MS, Neuropathy, Peripheral, Parkinson's, Seizure, TIA Psychiatric History: Reports: None. Denies: Abuse, Victim of, ADD, ADHD, Addiction, Anxiety, Dementia, Depression, Psych Hospitalization(s), PTSD, Suicide Attempt, Suicidal Ideation Endocrine/Metabolic History: Reports: None. Denies: Diabetes, Type I, Diabetes , Type II, Diabetes Mellitus, Type 3c, Hypothyroidism, IDDM Hematologic History: Reports: Anemia, B12 Deficiency, Iron Deficiency, Other ( See Below) Other Hematologic History: Multiple myeloma as below. Distant iron deficiency anemia requiring transfusions in his 20s Immunologic History: Reports: Immunosuppression, Other (See Below). Denies: AIDS, HIV, SLE Other Immunologic History: Multiple myeloma. 06/03/2018 patient underwent stem cell transplant transplant approximately 31 days ago May 01, 2018 sent home on 05/30/2018 Oncologic (Cancer) History: Reports: Other (See Below). Denies: Basal Cell Carcinoma, Colon, Hodgkin's Lymphoma, Leukemia, Lymphoma, Malignant Melanoma, Non-Hodgkin's Lymphoma, Squamous Cell Carcinoma Other Oncologic History: multiple myeloma/monoclonal gammopathy initially diagnosed in 2008 with initiation of chemotherapy in January 2018 Dermatologic History: Reports: Angiodema, Eczema, Other (See Below) Other Dermatologic History: Eczema starting as a child. Angioedema, dyspnea, dysphagia with fish and iodine exposure - Infectious Disease History Infectious Disease History: Reports: Chicken Pox, Measles, Mumps, Shingles. Denies: C-Difficile, Meningitis, Mononucleosis, MRSA, Pertussis (Whooping Cough) , Rubella, Scarlet Fever, TB, VRE - Past Surgical History Head Surgeries/Procedures: Reports: None HEENT Surgical History: Reports: Cataract Surgery, Naso-Sinus Surgery, Oral Surgery, Other (See Below). Denies: Adenoidectomy, Eye Surgery, Laser Surgery, LASIK, Myringotomy w Tube(s), Tonsillectomy Other HEENT Surgeries/Procedures: Nasal surgery in his 30s. Bilateral cataract surgery with right sided surgery in 2014 with left-sided surgery in 2017. Multiple teeth extractions with complete upper dentures and partial lowers Cardiovascular Surgical History: Reports: Cardiac Ablation, Other (See Below). Denies: Coronary Artery Bypass, Pacer, Percutaneous Transluminal Angioplasty, Vascular Surgery Other Cardiovascular Surgeries/Procedures: Cardiac ablation on 09/14/2016 Respiratory Surgical History: Reports: None. Denies: Thoracentesis GI Surgical History: Reports: Colonoscopy, EGD, Polypectomy, Other (See Below). Denies: Appendectomy, Cholecystectomy, Hernia, Abdominal, Hernia, Inguinal, Hernia Repair/Other Other GI Surgeries/Procedures: Last EGD and colonoscopy on 04/21/17 with negative H. pylori biopsy at that time. Note distant polypectomy several years ago as above. Previous colonoscopy in July 2012. Male Surgical History: Reports: Circumcision, Other (See Below) Other Male Surgeries/Procedures: CT-guided renal biopsy on 12/08/17. Circumcision as an . Endocrine Surgical History: Reports: None. Denies: Thyroid Biopsy Neurological Surgical History: Reports: None. Denies: C-Spine, Discectomy, Laminectomy, Lumbar Spine, Sacral Spine, Spinal Fusion, Vertebroplasty Musculoskeletal Surgical History: Reports: Other (See Below) Other Musculoskeletal Surgeries/Procedures:: Right distal biceps tendon tear repair on 08/13/14 Oncologic Surgical History: Reports: Bone Marrow Aspiration, Other (See Below) Other Oncologic Surgeries/Procedures: Bone marrow needle aspiration biopsy at [facility] in November 2017 Dermatological Surgical History: Reports: Other (See Below) - Past Imaging History Past Imaging History: Reports: Angiography (Negative heart catheterization on ), Cardiac Echo (Last echocardiogram on 10/04/17 with ejection fraction of 50 -55% with stable findings from previous evaluations on 09/14/16 and 6/14/16), CAT Scan (CT guided renal biopsy on 12/08/17. Negative CTA of the chest on . CT of the abdomen and pelvis with contrast on 04/13/17, 05/28/15, 07/23/13, and 06/01/12. CT of the brain on 12/18/14), MRI (Right upper arm on 07/30/14), PFT (11/05/13), Stress Testing (Cardiolite stress test on 10/17/17 did indicate possible inferolateral cardiac ischemia with ejection fraction of 55% and recurrence of his atrial fibrillation), Ultrasound (Last renal ultrasound on 11/04 with previous abdominal ultrasound on 01/29/09 and renal ultrasound on ), Other (See Below) (Bone survey for his multiple myeloma on 01/15/14) Social & Family History - Family History HEENT: Reports: Impaired Vision, Other (See Below). Denies: Glaucoma, Macular Degeneration Other HEENT Family History: Father with diabetic retinopathy Cardiac: Reports: Bypass, CAD, Cardiomyopathy, Heart Failure, High Cholesterol, GA, PVD/COD, Stent, Other (See Below). Denies: Afib, Aneurysm, Arrhythmia, Blood Clots/VTE/DVT, Hypertension, Syncope Other Cardiac Family History: Father with history of recurrent MIs initially at about age 55 with history of CABG at that time. Paternal grandfather with fatal GA in his 70s. Mother with history of fatal CHF at age 80 with additional history of hyperlipidemia and carotid occlusive disease requiring surgery. Brother with no history of GA however total of 10 PTCA/stent placements since age 35 Respiratory: Reports: None. Denies: Asthma, COPD, PE, Pneumothorax, Sleep Apnea GI: Reports: Diverticulosis, Other (See Below). Denies: Celiac Disease, Colon Polyps, GERD, GI bleed, Inflammatory Bowel Disease, Irritable Bowel Syndrome, PUD Other GI Family History: mother with diverticulosis : Reports: Diabetic Nephropathy, Renal Disease/Insufficiency, Other (See Below ). Denies: Renal Calculus Other Family History: Father with diabetic nephropathy OBGYN: Reports: None. Denies: Endometriosis, Recurrent Spontaneous Musculoskeletal: Reports: None. Denies: Arthritis, Gout, RA, SLE Neurological: Reports: None. Denies: Alzheimers Disease, CVA, Dementia, Migraines, MS, Neuropathy, Diabetic, Neuropathy, Peripheral, Parkinson's, Seizure, TIA Psychiatric: Reports: Anxiety, Depression, Other (See Below). Denies: Abuse, Victim of, ADD, ADHD, Psych Hospitalization(s), PTSD, Suicide Attempt Other Psychiatric Family History: Father with anxiety depression disorder Endocrine/Metabolic: Reports: Diabetes, type II, IDDM, Other (See Below). Denies: Diabetes, Type I, Diabetes Mellitus, Type 3c, Hypothyroidism Other Endocrine/Metabolic Family History: IDDM in father and sister Hematologic: Reports: None. Denies: Anemia, Transfusion Reaction Immunologic: Reports: None. Denies: AIDS, HIV, SLE Dermatologic: Reports: None. Denies: Eczema, Psoriasis Oncologic: Reports: Breast, Other (See Below). Denies: Colon, Hodgkin's Lymphoma, Leukemia, Non-Hodgkin's Lymphoma, Prostate, Skin Other Oncologic Family History: Sister with breast cancer in her 60s - Caffeine Use Caffeine Use: Reports: Coffee, Soda - Sexual History Sexual History: Reports: Sexually Active, Single Partner - Living Situation & Occupation Living situation: Reports: (1977, 2 children), with Family () Occupation: Employed ([employer] in [employer]) ED ROS GENERAL - Review of Systems Review Of Systems: See Below Constitutional: Reports: No Symptoms HEENT: Reports: No Symptoms Respiratory: Reports: No Symptoms Cardiovascular: Reports: Lightheadedness Endocrine: Reports: No Symptoms GI/Abdominal: Reports: No Symptoms : Reports: No Symptoms Musculoskeletal: Reports: No Symptoms Skin: Reports: No Symptoms Neurological: Reports: No Symptoms Psychiatric: Reports: No Symptoms ED EXAM, GENERAL - Physical Exam Exam: See Below Exam Limited By: No Limitations General Appearance: Alert, WD/WN, No Apparent Distress Ears: Normal External Exam, Normal Canal, Hearing Grossly Normal, Normal TMs Nose: Normal Inspection, Normal Mucosa, No Blood Throat/Mouth: Normal Inspection, Normal Lips, Normal Teeth, Normal Gums, Normal Oropharynx, Normal Voice, No Airway Compromise Head: Atraumatic, Normocephalic Neck: Normal Inspection, Supple, Non-Tender, Full Range of Motion Respiratory/Chest: No Respiratory Distress, Lungs Clear, Normal Breath Sounds, No Accessory Muscle Use, Chest Non-Tender Cardiovascular: Regular Rate, Rhythm, Tachycardia GI/Abdominal: Normal Bowel Sounds, Soft, Non-Tender, No Organomegaly, No Distention, No Abnormal Bruit, No Mass (Male) Exam: Deferred Rectal (Males) Exam: Deferred Back Exam: Normal Inspection, Full Range of Motion, NT Extremities: Normal Inspection, Normal Range of Motion, Non-Tender, Normal Capillary Refill, No Pedal Edema Neurological: Alert, Oriented, CN II-XII Intact, Normal Cognition, Normal Gait, Normal Reflexes, No Motor/Sensory Deficits Psychiatric: Normal Affect, Normal Mood Skin Exam: Warm, Dry, Intact, Normal Color, No Rash Lymphatic: No Adenopathy Course - Vital Signs Last Recorded V/S: Last Vital Signs Temp 98 F 07/08/18 17:48 Pulse 118 H 07/08/18 17:48 Resp 22 H 07/08/18 18:30 BP 98/68 07/08/18 18:30 Pulse Ox 98 07/08/18 18:30 - Orders/Labs/Meds Orders: Active Orders 24 hr Category Date Time Status EKG Documentation Completion [RC] ASDIRECTED Care 07/08/18 18:34 Active Chest 2V [CR] Stat Exams 07/08/18 18:32 Taken BASIC METABOLIC PANEL,BMP [CHEM] Stat Lab 07/08/18 18:32 Ordered UA W/MICROSCOPIC [URIN] Stat Lab 07/08/18 18:28 Ordered Sodium Chloride 0.9% [Normal Saline] 1,000 ml Med 07/08/18 18:30 Active IV ASDIRECTED Sodium Chloride 0.9% [Saline Flush] Med 07/08/18 18:26 Active 10 ml FLUSH ASDIRECTED PRN Saline Lock Insert [OM.PC] Stat Oth 07/08/18 18:26 Ordered Medication Orders Sodium Chloride (Normal Saline) 1,000 mls @ 250 mls/hr IV ASDIRECTED GETACHEW Last Admin: 07/08/18 18:41 Dose: 250 mls/hr Sodium Chloride (Saline Flush) 10 ml FLUSH ASDIRECTED PRN PRN Reason: Keep Vein Open Labs: Laboratory Tests 07/08/18 07/08/18 07/08/18 Range/Units 18:40 18:40 18:50 WBC 15.7 H (4.0-10.2) K/uL RBC 3.80 L (4.33-5.41) M/uL Hgb 10.9 L (13.1-16.8) g/dL Hct 33.1 L (39.0-49.0) % MCV 87.1 D (84.0-98.0) fL MCH 28.7 (28.2-33.3) pg MCHC 32.9 (31.7-36.0) g/dL RDW 18.6 H (11.2-14.1) % Plt Count 193 D (150-350) K/uL Neut % (Auto) 18.8 L (45.0-80.0) % Lymph % (Auto) 69.0 H (10.0-50.0) % [place] % (Auto) 8.5 (2.0-14.0) % Eos % (Auto) 3.4 (0.0-5.0) % Baso % (Auto) 0.3 (0.0-2.0) % Neut # (Auto) 2.95 (1.40-7.00) K/uL Lymph # (Auto) 10.80 H (0.50-3.50) K/uL [place] # (Auto) 1.33 H (0.00-1.00) K/uL Eos # (Auto) 0.53 H (0.00-0.50) K/uL Baso # (Auto) 0.04 (0.00-0.20) K/uL Sodium 139 (136-145) mmol/L Potassium 4.2 (3.5-5.1) mmol/L Chloride 104 (98-107) mmol/L Carbon Dioxide 24.0 (21.0-32.0) mmol/L BUN 18 (7-18) mg/dL Creatinine 1.36 H (0.51-1.17) mg/dL Est Cr Clr Drug Dosing 53.16 mL/min Estimated GFR (MDRD) 53 mL/min Glucose 108 H (74-106) mg/dL Lactic Acid 0.9 (0.4-2.0) mmol/L Calcium 9.1 (8.5-10.1) mg/dL Total Bilirubin 0.3 (0.2-1.0) mg/dL AST 29 (15-37) U/L ALT 29 (12-78) U/L Alkaline Phosphatase 155 H (46-116) IU/L NT-Pro-B Natriuret Pep 1237 H (0-125) pg/mL Total Protein 6.0 L (6.4-8.2) g/dL Albumin 2.4 L (3.4-5.0) g/dL Meds: Medications Generic Name Dose Route Start Last Admin Trade Name Freq PRN Reason Stop Dose Admin Sodium Chloride 1,000 mls @ 250 mls/hr 07/08/18 18:30 07/08/18 18:41 Normal Saline IV 250 mls/hr ASDIRECTED GETACHEW Administration Sodium Chloride 10 ml 07/08/18 18:26 Saline Flush FLUSH ASDIRECTED PRN Keep Vein Open Discontinued Medications Generic Name Dose Route Start Last Admin Trade Name Freq PRN Reason Stop Dose Admin Diltiazem HCl 10 mg 07/08/18 21:00 Diltiazem IVPUSH 07/08/18 21:01 ONETIME ONE Departure - Departure Time of Disposition: 21:47 Disposition: Home, Self-Care 01 Clinical Impression: Tachycardia Referrals: Opal Dale [employer]INUITY SPECIALIST [Primary Care Provider] - Care Plan Goals: Patient responded quite nicely to 10 mg of diltiazem IV I will send him home on diltiazem 120 mg daily he could take a pill before he goes to sleep. - My Orders Last 24 Hours: My Active Orders 07/08/18 18:26 Sodium Chloride 0.9% [Saline Flush] 10 ml FLUSH ASDIRECTED PRN Saline Lock Insert [OM.PC] Stat 07/08/18 18:28 UA W/MICROSCOPIC [URIN] Stat 07/08/18 18:30 Sodium Chloride 0.9% [Normal Saline] 1,000 ml IV ASDIRECTED 07/08/18 18:32 Chest 2V [CR] Stat BASIC METABOLIC PANEL,BMP [CHEM] Stat 07/08/18 18:34 EKG Documentation Completion [RC] ASDIRECTED - Assessment/Plan Last 24 Hours: My Active Orders 07/08/18 18:26 Sodium Chloride 0.9% [Saline Flush] 10 ml FLUSH ASDIRECTED PRN Saline Lock Insert [OM.PC] Stat 07/08/18 18:28 UA W/MICROSCOPIC [URIN] Stat 07/08/18 18:30 Sodium Chloride 0.9% [Normal Saline] 1,000 ml IV ASDIRECTED 07/08/18 18:32 Chest 2V [CR] Stat BASIC METABOLIC PANEL,BMP [CHEM] Stat 07/08/18 18:34 EKG Documentation Completion [RC] ASDIRECTED
[2018-07-08 21:48] VITALS: BP 97/52
== END 2018-07-08 22:00 | disposition home or self-care (01) ==
LOC: LL.ED 17:48
DX: R00.0 Tachycardia, unspecified (principal); I13.0 Hypertensive heart and chronic kidney disease with heart failure and stage 1 through stage 4 chronic kidney disease, or unspecified chronic kidney disease; I50.9 Heart failure, unspecified; N18.9 Chronic kidney disease, unspecified; I48.91 Unspecified atrial fibrillation; E78.00 Pure hypercholesterolemia, unspecified; Z79.899 Other long term (current) drug therapy; Z91.013 Allergy to seafood; Z91.09 Other allergy status, other than to drugs and biological substances; Z88.7 Allergy status to serum and vaccine; Z88.8 Allergy status to other drugs, medicaments and biological substances
CPT/HCPCS: 36415; 71046; 80053; 83605; 83880; 85025; 93005; 96361; 96374; 99285; J3490; J7030; J7050

== ENCOUNTER → 2019-08-21 | Outpatient (CLI) | payer BC ==
[~2019-08-21] MED LIST changes: +Diatrizoate Meglumine/Diatrizoate Sodium 37% 30 ML Bottle PO ONE; +Iopamidol 612 MG/ML 100 ML Bottle IVPUSH ONE; -Lactated Ringers 1,000 ML IV SCH; +Sodium Chloride 0.9% 10 ML Syringe FLUSH ONE; -Sodium Chloride 0.9% 10 ML Syringe FLUSH PRN
== END ==
LOC: LL.CT 09:25
PROVIDERS: ATTEND Family Medicine
DX: R10.9 Unspecified abdominal pain (principal); C90.00 Multiple myeloma not having achieved remission; E85.89 Other amyloidosis; K57.30 Diverticulosis of large intestine without perforation or abscess without bleeding; K44.9 Diaphragmatic hernia without obstruction or gangrene; M43.17 Spondylolisthesis, lumbosacral region; K76.0 Fatty (change of) liver, not elsewhere classified; N40.0 Benign prostatic hyperplasia without lower urinary tract symptoms
CPT/HCPCS: 74177; Q9963; Q9967

== ENCOUNTER 2019-08-24 11:58 | Emergency (ER) | payer BC ==
[2019-08-24 12:06] VITALS: BP 141/76; PULSE 94
[2019-08-24] MEDS ORDERED: Sodium Chloride 0.9% 1,000 ML IV ONE ×2 (13:29→14:11)
[2019-08-24] MEDS ORDERED: Morphine 2 MG/ML Syringe IVPUSH ONE (14:17)
--- NOTE | 2019-08-24 14:17 | EDM.PDOC ---
ED HPI GENERAL MEDICAL PROBLEM - General Chief Complaint: Abdominal Pain Stated Complaint: abdominal pain Time Seen by Provider: 08/24/19 12:23 Source of Information: Reports: Patient History Limitations: Reports: No Limitations - History of Present Illness INITIAL COMMENTS - FREE TEXT/NARRATIVE: Patient comes to ER with complaint of crampy abdominal pain. History of diverticulitis in past. This pain feels similar, but instead of it being focused solely in the left lower abdomen per usual it is instead across the lower abdomen. No fevers/chills. Last BM on . Seen in clinic. Had CT of abdomen on . Diverticula noted , however no diverticulitis or other acute findings that could be linked with the abdominal pain. He was started on Cipro and Flagyl yesterday to cover for diverticulitis. No specific pattern to pain/triggers/ways to improve it. No radiation of pain. No urinary changes. Denies emesis/nausea. Has history of chronic constipation. Decreased appetite. No other reported changes. Lower Abdominal Pain Score (Numeric/FACES): 9 - Related Data Allergies Allergy/AdvReac Type Severity Reaction Status Date / Time ezetimibe [From Vytorin] Allergy Muscle Verified 08/24/19 13:33 Aches iodine Allergy Airway Verified 08/24/19 13:33 Tightness shellfish derived Allergy Airway Verified 08/24/19 13:33 Tightness Tetanus Vaccines and Toxoid Allergy Hives Verified 08/24/19 13:33 [Tetanus Vaccines & Toxoid] fish Allergy Intermediate Airway Uncoded 08/24/19 13:33 Tightness Home Meds: Home Meds Apixaban [Eliquis] 5 mg PO BID 06/03/18 [History] Clobetasol [Clobetasol 0.05%] 1 applic TOP ASDIRECTED PRN 06/03/18 [History] Diltiazem [Cardizem CD] 1 cap PO DAILY 06/03/18 [History] Fluticasone Propionate [Flovent HFA 110 MCG] 2 puff INH BID PRN 06/03/18 [ History] Loperamide [Imodium AD] 2 mg PO ASDIRECTED PRN MDD 16 mg 06/03/18 [History] Omeprazole 20 mg PO DAILY 06/03/18 [History] Albuterol Sulfate [Proair Respiclick] 2 puff INH Q4H PRN 07/08/18 [History] Acetaminophen/oxyCODONE [Percocet 325-5 MG] 1 each PO ASDIRECTED PRN #1 tab [Rx] Ciprofloxacin HCl [Cipro] 500 mg PO BID 08/24/19 [History] Metoprolol Succinate 25 mg PO BEDTIME 08/24/19 [History] Propafenone HCl [Propafenone] 150 mg PO Q12H 08/24/19 [History] metroNIDAZOLE [Flagyl] 500 mg PO Q8HR 08/24/19 [History] Past Medical History HEENT History: Reports: Allergic Rhinitis, Cataract, Glaucoma, Hard of Hearing, Impaired Vision, Other (See Below) Other HEENT History: Pt wears glasses. Allergic rhinitis to pollen, pets, etc. Mild bilateral presbycusis with no current hearing aid therapy Cardiovascular History: Reports: Afib, Arrhythmia, Heart Failure, Heart Murmur, High Cholesterol, Hypertension, Other (See Below) Other Cardiovascular History: Chronic atrial fibrillation with current anticoagulation therapy and previous ablation as below however still refractory. First-degree AV block in the past with borderline junctional rhythm and possible intermittent second degree AV block on 11/10/17. Benign heart murmur as a child. Fatty liver secondary to hyperlipidemia. Respiratory History: Reports: Asthma, COPD, Intubation, Previous, Pulmonary Fibrosis, Other (See Below) Other Respiratory History: Childhood asthma with additional COPD and pulmonary fibrosis Gastrointestinal History: Reports: Colon Polyp, Diverticulosis, Gastritis, GERD , Hemorrhoids, Hiatal Hernia, Other (See Below) Other Gastrointestinal History: History of unknown type of benign distant colonic polyps. 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 Right distal biceps tendon tear diagnosed on 07/30/14 with repair as below Neurological History: Reports: Headaches, Chronic, Migraines Psychiatric History: Reports: None Endocrine/Metabolic History: Reports: None Hematologic History: Reports: Anemia, B12 Deficiency, Iron Deficiency, Other ( See Below) Other Hematologic History: Multiple myeloma as below. Distant iron deficiency anemia requiring transfusions in his 20s Immunologic History: Reports: Immunosuppression, Other (See Below) Other Immunologic History: Multiple myeloma. 06/03/2018 patient underwent stem cell transplant transplant approximately 31 days ago May 01, 2018 sent home on 05/30/2018 Oncologic (Cancer) History: Reports: Other (See Below) Other Oncologic History: multiple myeloma/monoclonal gammopathy initially diagnosed in 2008 with initiation of chemotherapy in January 2018 Dermatologic History: Reports: Angiodema, Eczema, Other (See Below) Other Dermatologic History: Eczema starting as a child. Angioedema, dyspnea, dysphagia with fish and iodine exposure - Infectious Disease History Infectious Disease History: Reports: Chicken Pox, Measles, Mumps, Shingles - Past Surgical History Head Surgeries/Procedures: Reports: None HEENT Surgical History: Reports: Cataract Surgery, Naso-Sinus Surgery, Oral Surgery, Other (See Below) Other HEENT Surgeries/Procedures: Nasal surgery in his 30s. Bilateral cataract surgery with right sided surgery in 2014 with left-sided surgery in 2016. Multiple teeth extractions with complete upper dentures and partial lowers Cardiovascular Surgical History: Reports: Cardiac Ablation, Other (See Below) Other Cardiovascular Surgeries/Procedures: Cardiac ablation on 09/14/2016 Respiratory Surgical History: Reports: None GI Surgical History: Reports: Colonoscopy, EGD, Polypectomy, Other (See Below) Other GI Surgeries/Procedures: Last EGD and colonoscopy on 04/21/17 with negative H. pylori biopsy at that time. Note distant polypectomy several years ago as above. Previous colonoscopy in July 2012. Male Surgical History: Reports: Circumcision, Other (See Below) Other Male Surgeries/Procedures: CT-guided renal biopsy on 12/08/17. Circumcision as an infant. Endocrine Surgical History: Reports: None Neurological Surgical History: Reports: None Musculoskeletal Surgical History: Reports: Other (See Below) Other Musculoskeletal Surgeries/Procedures:: Right distal biceps tendon tear repair on 08/13/14 Oncologic Surgical History: Reports: Bone Marrow Aspiration, Other (See Below) Other Oncologic Surgeries/Procedures: Bone marrow needle aspiration biopsy at [facility] in November 2017 Dermatological Surgical History: Reports: Other (See Below) - Past Imaging History Past Imaging History: Reports: Angiography (Negative heart catheterization on ), Cardiac Echo (Last echocardiogram on 10/04/17 with ejection fraction of 50 -55% with stable findings from previous evaluations on 09/14/16 and 03/16/16), CAT Scan (CT guided renal biopsy on 12/08/17. Negative CTA of the chest on . CT of the abdomen and pelvis with contrast on 04/13/17, 05/28/15, 07/23/13, and 06/01/12. CT of the brain on 12/18/14), MRI (Right upper arm on 07/30/14), PFT (11/05/13), Stress Testing (Cardiolite stress test on 10/17/17 did indicate possible inferolateral cardiac ischemia with ejection fraction of 55% and recurrence of his atrial fibrillation), Ultrasound (Last renal ultrasound on 11/04 with previous abdominal ultrasound on 01/29/09 and renal ultrasound on ), Other (See Below) (Bone survey for his multiple myeloma on 01/15/14) Social & Family History - Family History HEENT: Reports: Impaired Vision, Other (See Below) Other HEENT Family History: Father with diabetic retinopathy Cardiac: Reports: Bypass, CAD, Cardiomyopathy, Heart Failure, High Cholesterol, CT, PVD/COD, Stent, Other (See Below) Other Cardiac Family History: Father with history of recurrent MIs initially at about age 55 with history of CABG at that time. Paternal grandfather with fatal CT in his 70s. Mother with history of fatal CHF at age 80 with additional history of hyperlipidemia and carotid occlusive disease requiring surgery. Brother with no history of CT however total of 10 PTCA/stent placements since age 35 Respiratory: Reports: None GI: Reports: Diverticulosis, Other (See Below) Other GI Family History: mother with diverticulosis : Reports: Diabetic Nephropathy, Renal Disease/Insufficiency, Other (See Below ) Other Family History: Father with diabetic nephropathy OBGYN: Reports: None Musculoskeletal: Reports: None Neurological: Reports: None Psychiatric: Reports: Anxiety, Depression, Other (See Below) Other Psychiatric Family History: Father with anxiety depression disorder Endocrine/Metabolic: Reports: Diabetes, type II, IDDM, Other (See Below) Other Endocrine/Metabolic Family History: IDDM in father and sister Hematologic: Reports: None Immunologic: Reports: None Dermatologic: Reports: None Oncologic: Reports: Breast, Other (See Below) Other Oncologic Family History: Sister with breast cancer in her 60s - Caffeine Use Caffeine Use: Reports: Coffee, Soda - Sexual History Sexual History: Reports: Sexually Active, Single Partner - Living Situation & Occupation Living situation: Reports: (1977, 2 children), with Family () 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 Denies: Fever, Chills, Weakness, Night Sweats, Diaphoresis HEENT: Reports: No Symptoms (no acute changes) Respiratory: Reports: No Symptoms Cardiovascular: Reports: No Symptoms GI/Abdominal: Reports: Abdominal Pain, Constipation, Decreased Appetite. Denies : Black Stool, Bloody Stool, Diarrhea, Difficulty Swallowing, Distension, Nausea , Vomiting : Reports: No Symptoms Musculoskeletal: Reports: No Symptoms (no acute changes) Skin: Reports: No Symptoms Neurological: Reports: No Symptoms Psychiatric: Reports: No Symptoms Hematologic/Lymphatic: Reports: No Symptoms ED EXAM, GENERAL - Physical Exam Exam: See Below Exam Limited By: No Limitations General Appearance: Alert, WD/WN, No Apparent Distress Eye Exam: Bilateral Eye: EOMI, PERRL Nose: No: Nasal Deformity, Nasal Swelling, Nasal Drainage Throat/Mouth: Normal Lips, Normal Voice, No Airway Compromise Head: Atraumatic, Normocephalic Neck: Supple, Non-Tender Respiratory/Chest: No Respiratory Distress, Lungs Clear, Normal Breath Sounds, No Accessory Muscle Use, Chest Non-Tender Cardiovascular: Regular Rate, Rhythm, No Murmur GI/Abdominal: Soft, No Distention, Tender (tender across abdomen, worse in LLQ/ periumbilical area). No: Guarding, Rigid, Rebound (Male) Exam: Deferred Rectal (Males) Exam: Deferred Back Exam: No: CVA Tenderness (L), CVA Tenderness (R), Muscle Spasm, Paraspinal Tenderness, Vertebral Tenderness Extremities: Non-Tender, Normal Capillary Refill Neurological: Alert, Oriented, Normal Cognition, Normal Gait, No Motor/Sensory Deficits Psychiatric: Normal Affect, Normal Mood Skin Exam: Warm, Dry, Intact, Normal Color Course - Vital Signs Last Recorded V/S: Last Vital Signs Temp 37.1 C 08/24/19 11:59 Pulse 94 08/24/19 11:59 Resp 20 08/24/19 11:59 BP 141/76 H 08/24/19 11:59 Pulse Ox 100 08/24/19 11:59 - Orders/Labs/Meds Orders: Active Orders 24 hr Category Date Time Status Abdomen Series w Chest 1V [CR] Stat Exams 08/24/19 12:23 Taken Labs: Laboratory Tests 08/24/19 08/24/19 08/24/19 Range/Units 12:45 12:45 12:45 WBC 15.0 H (4.0-10.2) K/uL RBC 4.92 (4.33-5.41) M/uL Hgb 12.8 L (13.1-16.8) g/dL Hct 39.9 (39.0-49.0) % MCV 81.1 L (84.0-98.0) fL MCH 26.0 L (28.2-33.3) pg MCHC 32.1 (31.7-36.0) g/dL RDW 15.8 H (11.2-14.1) % Plt Count 223 (150-350) K/uL Neut % (Auto) 60.1 (45.0-80.0) % Lymph % (Auto) 27.2 (10.0-50.0) % [place] % (Auto) 11.3 (2.0-14.0) % Eos % (Auto) 1.1 (0.0-5.0) % Baso % (Auto) 0.3 (0.0-2.0) % Neut # (Auto) 9.04 H (1.40-7.00) K/uL Lymph # (Auto) 4.08 H (0.50-3.50) K/uL [place] # (Auto) 1.69 H (0.00-1.00) K/uL Eos # (Auto) 0.16 (0.00-0.50) K/uL Baso # (Auto) 0.05 (0.00-0.20) K/uL Sodium 138 (136-145) mmol/L Potassium 3.9 (3.5-5.1) mmol/L Chloride 102 (98-107) mmol/L Carbon Dioxide 24.5 (21.0-32.0) mmol/L BUN 16 (7-18) mg/dL Creatinine 1.34 H (0.51-1.17) mg/dL Est Cr Clr Drug Dosing 54.23 mL/min Estimated GFR (MDRD) 53 mL/min Glucose 91 (74-106) mg/dL Lactic Acid 1.1 (0.4-2.0) mmol/L Calcium 9.3 (8.5-10.1) mg/dL Total Bilirubin 1.6 H (0.2-1.0) mg/dL AST 21 (15-37) U/L ALT 29 (12-78) U/L Alkaline Phosphatase 134 H (46-116) IU/L Total Protein 7.6 (6.4-8.2) g/dL Albumin 3.4 (3.4-5.0) g/dL Specimen Type Urine Color Urine Appearance Urine pH (5.0-9.0) Ur Specific [place] (1.005-1.030) Urine Protein (NEGATIVE) mg/dL Urine Glucose (UA) (NEGATIVE) mg/dL Urine Ketones (NEGATIVE) mg/dL Urine Occult Blood (NEGATIVE) Urine Nitrite (NEGATIVE) Urine Bilirubin (NEGATIVE) Urine Urobilinogen (0.2-1.0) E.U./dL Ur Leukocyte Esterase (NEGATIVE) Urine RBC /HPF Urine WBC /HPF Ur Epithelial Cells /LPF Urine Bacteria (NONE TO FEW) /HPF 08/24/19 Range/Units 14:00 WBC (4.0-10.2) K/uL RBC (4.33-5.41) M/uL Hgb (13.1-16.8) g/dL Hct (39.0-49.0) % MCV (84.0-98.0) fL MCH (28.2-33.3) pg MCHC (31.7-36.0) g/dL RDW (11.2-14.1) % Plt Count (150-350) K/uL Neut % (Auto) (45.0-80.0) % Lymph % (Auto) (10.0-50.0) % [place] % (Auto) (2.0-14.0) % Eos % (Auto) (0.0-5.0) % Baso % (Auto) (0.0-2.0) % Neut # (Auto) (1.40-7.00) K/uL Lymph # (Auto) (0.50-3.50) K/uL [place] # (Auto) (0.00-1.00) K/uL Eos # (Auto) (0.00-0.50) K/uL Baso # (Auto) (0.00-0.20) K/uL Sodium (136-145) mmol/L Potassium (3.5-5.1) mmol/L Chloride (98-107) mmol/L Carbon Dioxide (21.0-32.0) mmol/L BUN (7-18) mg/dL Creatinine (0.51-1.17) mg/dL Est Cr Clr Drug Dosing mL/min Estimated GFR (MDRD) mL/min Glucose (74-106) mg/dL Lactic Acid (0.4-2.0) mmol/L Calcium (8.5-10.1) mg/dL Total Bilirubin (0.2-1.0) mg/dL AST (15-37) U/L ALT (12-78) U/L Alkaline Phosphatase (46-116) IU/L Total Protein (6.4-8.2) g/dL Albumin (3.4-5.0) g/dL Specimen Type Urinblad Urine Color Dark yellow Urine Appearance Clear Urine pH 6.0 (5.0-9.0) Ur Specific [place] 1.020 (1.005-1.030) Urine Protein 30 H (NEGATIVE) mg/dL Urine Glucose (UA) Negative (NEGATIVE) mg/dL Urine Ketones 15 H (NEGATIVE) mg/dL Urine Occult Blood Trace-intact H (NEGATIVE) Urine Nitrite Negative (NEGATIVE) Urine Bilirubin Negative (NEGATIVE) Urine Urobilinogen 1.0 (0.2-1.0) E.U./dL Ur Leukocyte Esterase Trace H (NEGATIVE) Urine RBC 5-10 H /HPF Urine WBC 0-5 /HPF Ur Epithelial Cells Rare /LPF Urine Bacteria Rare (NONE TO FEW) /HPF Meds: Medications Discontinued Medications Generic Name Dose Route Start Last Admin Trade Name Freq PRN Reason Stop Dose Admin Sodium Chloride 1,000 mls @ 999 mls/hr 08/24/19 13:29 08/24/19 13:55 Normal Saline IV 08/24/19 14:29 999 mls/hr .BOLUS ONE Administration Sodium Chloride 1,000 mls @ 999 mls/hr 08/24/19 14:11 08/24/19 14:28 Normal Saline IV 08/24/19 15:11 Not Given .BOLUS ONE Ciprofloxacin/Dextrose 400 mg/ 200 mls @ 200 mls/hr 08/24/19 14:26 08/24/19 15:42 Premix IV 08/24/19 15:25 200 mls/hr ONETIME ONE Administration Metronidazole 500 mg/ Premix 100 mls @ 100 mls/hr 08/24/19 14:24 08/24/19 14: 36 IV 08/24/19 15:23 100 mls/hr ONETIME ONE Administration Morphine Sulfate 2 mg 08/24/19 14:17 08/24/19 14:28 Morphine IVPUSH 08/24/19 14:18 2 mg ONETIME ONE Administration - Radiology Interpretation Free Text/Narrative:: Abd with chest: likely mild ileus per Radiology, however no other acute findings noted. - Re-Assessments/Exams Free Text/Narrative Re-Assessment/Exam: Elevated WBC. Normal lactic acid. Bili 1.6 UA did not show evidence of infection. Given that pain still localizes more so to the left, cannot rule out diverticulitis despite recent negative CT scan. Also appears to have mild ileus. Plan today was to give IV fluids/rehydrate. IV Cipro and Flagyl given to help get medications on board (patient only started oral meds yesterday). MS dose given. To resume oral meds. Recommend clear liquid diet today/tomorrow. Patient to observe for changes and see how things go for the next few days. Precautions reviewed. He is to return to the ER if he has worsening problems over the weekend. He is to follow up in clinic Tuesday or Tuesday for recheck. Patient is in agreement with plan. 15 tabs of Percocet dispensed for PRN pain use. Departure - Departure Time of Disposition: 17:18 Disposition: Home, Self-Care 01 Condition: Good Clinical Impression: History of diverticulitis, Dehydration Abdominal pain Qualifiers: Abdominal location: left lower quadrant Qualified Code(s): R10.32 - Left lower quadrant pain - Discharge Information *PRESCRIPTION DRUG MONITORING PROGRAM REVIEWED*: Not Applicable *COPY OF PRESCRIPTION DRUG MONITORING REPORT IN PATIENT [place]: Not Applicable Prescriptions: Acetaminophen/oxyCODONE [Percocet 325-5 MG] 1 each PO ASDIRECTED PRN #1 tab PRN Reason: Pain Instructions: Abdominal Pain, Adult, Ileus Referrals: Bryanna-Kimi Goodson MD [Primary Care Provider] - Forms: ED Department Discharge Additional Instructions: Continue taking your antibiotics as they will cover for the potential of diverticulitis. Clear liquid diet tonight and tomorrow. This will help assist with the possible ileus. Observe symptoms and see how they waste/materials exchange specialist the next 24-48 hours. If you start having worsening problems, please return to the ER to be rechecked. Advance diet as tolerated Tuesday if pain has improved. Take Flagyl tonight. However no more Cipro until tomorrow. - My Orders Last 24 Hours: My Active Orders 08/24/19 12:23 Abdomen Series w Chest 1V [CR] Stat - Assessment/Plan Last 24 Hours: My Active Orders 08/24/19 12:23 Abdomen Series w Chest 1V [CR] Stat
[2019-08-24] MEDS ORDERED: metroNIDAZOLE/Normal Saline 500 MG in Premix Bag 1 BAG IV ONE (14:24)
[2019-08-24] MEDS ORDERED: Ciprofloxacin in D5W 400 MG in Premix Bag 1 BAG IV ONE ×2 (14:26)
== END 2019-08-24 17:25 | disposition home or self-care (01) ==
LOC: LL.ED 11:58
DX: R10.32 Left lower quadrant pain (principal); E86.0 Dehydration; I13.0 Hypertensive heart and chronic kidney disease with heart failure and stage 1 through stage 4 chronic kidney disease, or unspecified chronic kidney disease; N18.3 Chronic kidney disease, stage 3 (moderate); I50.9 Heart failure, unspecified; J44.9 Chronic obstructive pulmonary disease, unspecified; Z87.19 Personal history of other diseases of the digestive system; Z91.048 Other nonmedicinal substance allergy status; Z88.8 Allergy status to other drugs, medicaments and biological substances; Z88.7 Allergy status to serum and vaccine; Z91.013 Allergy to seafood; Z79.899 Other long term (current) drug therapy; Z79.01 Long term (current) use of anticoagulants
CPT/HCPCS: 36415; 74022; 80053; 81001; 83605; 85025; 96361; 96365; 96367; 96375; 99284-25; J0744; J2270; J3490; J7030

== ENCOUNTER 2022-01-07 10:06 | Day surgery (SDC) | payer MEDICARE, BC ==
[~2022-01-07 10:06] MED LIST changes: -Diatrizoate Meglumine/Diatrizoate Sodium 37% 30 ML Bottle PO ONE; -Iopamidol 612 MG/ML 100 ML Bottle IVPUSH ONE; +Lactated Ringers 1,000 ML IV SCH; +Midazolam 1 MG/ML 2 ML SDV ONE; +Propofol 200 MG/20 ML SDV ONE; -Sodium Chloride 0.9% 10 ML Syringe FLUSH ONE; +Sodium Chloride 0.9% 10 ML Syringe FLUSH PRN
[2022-01-07] MEDS ORDERED: Glycopyrrolate 0.2 MG/ML SDV ONE (11:00)
[2022-01-07] MEDS ORDERED: Propofol 200 MG/20 ML SDV ONE (11:00)
[2022-01-07] MEDS ORDERED: Lidocaine 2% 5 ML SDV ONE (11:00)
[2022-01-07] MEDS ORDERED: Midazolam 1 MG/ML 2 ML SDV ONE (11:00)
[2022-01-07 12:12] VITALS: BP 121/61; PULSE 71
== END 2022-01-07 12:45 | disposition home or self-care (01) ==
LOC: LL.SDS 10:06
PROVIDERS: ATTEND Surgery
DX: Z12.11 Encounter for screening for malignant neoplasm of colon (principal); K21.9 Gastro-esophageal reflux disease without esophagitis; K31.7 Polyp of stomach and duodenum; K31.89 Other diseases of stomach and duodenum; I48.91 Unspecified atrial fibrillation; I10 Essential (primary) hypertension; J45.20 Mild intermittent asthma, uncomplicated; N18.32 Chronic kidney disease, stage 3b; I12.9 Hypertensive chronic kidney disease with stage 1 through stage 4 chronic kidney disease, or unspecified chronic kidney disease; D50.8 Other iron deficiency anemias; E78.5 Hyperlipidemia, unspecified; E53.8 Deficiency of other specified B group vitamins; Z86.010 Personal history of colon polyps; Z79.899 Other long term (current) drug therapy; Z91.040 Latex allergy status; Z88.0 Allergy status to penicillin; Z88.8 Allergy status to other drugs, medicaments and biological substances
CPT/HCPCS: 43239; 45378; J2250; J2704; J3490; J7120; 00813

== ENCOUNTER 2022-06-25 20:51 | Emergency (ER) | payer MEDICARE, BC ==
[2022-06-25] MEDS: Albuterol/Ipratropium 3.0-0.5 MG/3 ML Neb Soln NEB ONE ×2 (21:19→21:21)
[2022-06-25 21:53] LABS: ANION GAP 8.9 meq/L (7-15); CHLORIDE,CL 102 mmol/L (98-107); ESTIMATED GFR 56 mL/min (>=60); SODIUM,NA 138 mmol/L (136-145)
[2022-06-25] MEDS: methylPREDNISolone Sodium Succinate 125 MG/2 ML SDV IM ONE (22:24)
[2022-06-25 22:44] VITALS: BP 145/77; PULSE 110
== END 2022-06-25 23:00 | disposition home or self-care (01) ==
LOC: LL.ED 20:51
DX: J45.41 Moderate persistent asthma with (acute) exacerbation (principal); Z91.040 Latex allergy status; Z88.6 Allergy status to analgesic agent; Z88.0 Allergy status to penicillin; Z91.013 Allergy to seafood; Z88.8 Allergy status to other drugs, medicaments and biological substances; Z88.7 Allergy status to serum and vaccine; Z79.01 Long term (current) use of anticoagulants; Z79.899 Other long term (current) drug therapy
CPT/HCPCS: 36415; 71046; 80053; 81001; 83735; 83880; 84484; 85025; 85379; 93005; 93010; 94640; 96372; 99284; 99285; J2930; J7620-GY

== ENCOUNTER 2022-12-11 21:31 | Inpatient (IN) | payer MEDICARE, BC ==
[2022-12-11] MEDS ORDERED: Prochlorperazine 10 MG in Sodium Chloride 0.9% 100 ML IV ONE (22:28)
[2022-12-11] MEDS ORDERED: Albuterol/Ipratropium 3.0-0.5 MG/3 ML Neb Soln NEB ONE (22:39)
[2022-12-11] MEDS ORDERED: Sodium Chloride 0.9% 10 ML Syringe FLUSH PRN (22:58)
[2022-12-11 23:04] LABS: ANION GAP 20.8 meq/L (7-15)
[2022-12-11 23:04] LABS: CORONAVIRUS COVID-19 NAA NEGATIVE (NEGATIVE); RESPIRATORY SYNCYTIAL VIR NAA NEGATIVE (NEGATIVE)
[2022-12-11] MEDS ORDERED: Acetaminophen 500 MG Tab PO ONE (23:06)
[2022-12-11] MEDS: Lactated Ringers 1,000 ML IV SCH (23:19)
[2022-12-11] MEDS: cefTRIAXone 2 GM in Sodium Chloride 0.9% 100 ML IV SCH (23:20)
[2022-12-11] MEDS: Azithromycin 500 MG in Sodium Chloride 0.9% 250 ML IV SCH (23:33)
[2022-12-11] MEDS: Sodium Chloride 0.9% 10 ML Syringe FLUSH PRN (23:53)
[2022-12-12] MEDS ORDERED: diphenhydrAMINE 50 MG/ML SDV IVPUSH ONE (00:09)
[2022-12-12] MEDS ORDERED: Polyethylene Glycol 3350 Powder 17 GM Packet PO PRN (00:12)
[2022-12-12] MEDS ORDERED: Promethazine 25 MG/ML SDV IM PRN (00:12)
[2022-12-12] MEDS ORDERED: Fluticasone NASAL Spray 16 GM Bottle NAS PRN (00:16)
[2022-12-12] MEDS: Sodium Chloride 0.9% 10 ML Syringe FLUSH PRN ×4 (00:49→23:38)
[2022-12-12] MEDS: Lactated Ringers 1,000 ML IV SCH (07:55)
[2022-12-12 08:17] LABS: ANION GAP 11.4 meq/L (7-15)
[2022-12-12] MEDS: Diltiazem 120 MG Cap.CD PO SCH (08:55)
[2022-12-12] MEDS: Omeprazole 20 MG Cap.CR PO SCH (08:56)
[2022-12-12] MEDS: Acetaminophen 325 MG Tab PO PRN ×3 (08:56→23:37)
[2022-12-12] MEDS: Clopidogrel 75 MG Tab PO SCH (08:56)
[2022-12-12] MEDS: Enoxaparin 40 MG/0.4 ML Syringe SUBCUT SCH (08:57)
[2022-12-12] MEDS: Albuterol/Ipratropium 3.0-0.5 MG/3 ML Neb Soln NEB PRN (08:57)
[2022-12-12] MEDS: Prochlorperazine 10 MG/2 ML SDV IVPUSH PRN ×2 (15:25→23:38)
[2022-12-12] MEDS: PROPAFENONE 225 MG PO SCH (17:48)
[2022-12-12] MEDS: Aspirin 81 MG Tab.Chew PO SCH (19:29)
[2022-12-12] MEDS: Metoprolol Succinate 25 MG Tab.ER PO SCH (19:29)
[2022-12-12] MEDS: Montelukast 10 MG Tab PO SCH (19:29)
[2022-12-12] MEDS: cefTRIAXone 2 GM in Sodium Chloride 0.9% 100 ML IV SCH (22:21)
[2022-12-12] MEDS: diphenhydrAMINE 25 MG Cap PO PRN (22:22)
[2022-12-12] MEDS: Azithromycin 500 MG in Sodium Chloride 0.9% 250 ML IV SCH (22:55)
[2022-12-13] MEDS: Albuterol/Ipratropium 3.0-0.5 MG/3 ML Neb Soln NEB PRN (03:35)
[2022-12-13 07:55] LABS: ANION GAP 15.3 meq/L (7-15)
[2022-12-13] MEDS: Acetaminophen 325 MG Tab PO PRN ×2 (07:56→23:01)
[2022-12-13] MEDS: Diltiazem 120 MG Cap.CD PO SCH (07:57)
[2022-12-13] MEDS: Clopidogrel 75 MG Tab PO SCH (07:57)
[2022-12-13] MEDS: Enoxaparin 40 MG/0.4 ML Syringe SUBCUT SCH (07:58)
[2022-12-13] MEDS: Omeprazole 20 MG Cap.CR PO SCH (07:58)
[2022-12-13] MEDS: PROPAFENONE 225 MG PO SCH ×2 (08:00→17:04)
[2022-12-13] MEDS: Albuterol/Ipratropium 3.0-0.5 MG/3 ML Neb Soln NEB SCH ×3 (08:00→19:49)
[2022-12-13] MEDS ORDERED: Potassium Bicarbonate/Cit Ac 20 MEQ Effervescent Tab PO ONE (12:49)
[2022-12-13] MEDS: Sodium Chloride 0.9% 1,000 ML IV SCH ×2 (13:15→22:22)
[2022-12-13] MEDS: Sodium Chloride 0.9% 10 ML Syringe FLUSH PRN ×2 (13:20→13:52)
[2022-12-13] MEDS ORDERED: methylPREDNISolone Sodium Succinate 125 MG/2 ML SDV IVPUSH ONE (13:22)
[2022-12-13] MEDS: Aspirin 81 MG Tab.Chew PO SCH (19:48)
[2022-12-13] MEDS: Metoprolol Succinate 25 MG Tab.ER PO SCH (19:48)
[2022-12-13] MEDS: Montelukast 10 MG Tab PO SCH (19:48)
[2022-12-13] MEDS: cefTRIAXone 2 GM in Sodium Chloride 0.9% 100 ML IV SCH (22:23)
[2022-12-13] MEDS: diphenhydrAMINE 25 MG Cap PO PRN (22:26)
[2022-12-13] MEDS: Azithromycin 500 MG in Sodium Chloride 0.9% 250 ML IV SCH (23:01)
[2022-12-14] MEDS: Albuterol/Ipratropium 3.0-0.5 MG/3 ML Neb Soln NEB SCH ×4 (03:58→19:33)
[2022-12-14] MEDS: Clopidogrel 75 MG Tab PO SCH (08:06)
[2022-12-14] MEDS: Diltiazem 120 MG Cap.CD PO SCH (08:06)
[2022-12-14] MEDS: Omeprazole 20 MG Cap.CR PO SCH (08:06)
[2022-12-14] MEDS: Enoxaparin 40 MG/0.4 ML Syringe SUBCUT SCH (08:06)
[2022-12-14] MEDS: Sodium Chloride 0.9% 10 ML Syringe FLUSH PRN ×3 (08:07→23:23)
[2022-12-14] MEDS: PROPAFENONE 225 MG PO SCH ×2 (08:08→17:17)
[2022-12-14 08:20] LABS: ANION GAP 12.9 meq/L (7-15)
[2022-12-14] MEDS: Sodium Chloride 0.9% 1,000 ML IV SCH (08:27)
[2022-12-14] MEDS ORDERED: methylPREDNISolone Sodium Succinate 125 MG/2 ML SDV IVPUSH ONE (09:00)
[2022-12-14] MEDS: Potassium Bicarbonate/Cit Ac 20 MEQ Effervescent Tab PO ONE ×2 (11:30→11:38)
[2022-12-14] MEDS: Potassium Chloride 10 MEQ Tab.ER PO SCH ×2 (11:58→17:16)
[2022-12-14] MEDS: Acetaminophen 325 MG Tab PO PRN ×2 (15:05→19:34)
[2022-12-14] MEDS: Metoprolol Succinate 25 MG Tab.ER PO SCH (19:33)
[2022-12-14] MEDS: Aspirin 81 MG Tab.Chew PO SCH (19:33)
[2022-12-14] MEDS: Montelukast 10 MG Tab PO SCH (19:33)
[2022-12-14] MEDS ORDERED: Potassium Bicarbonate/Cit Ac 20 MEQ Effervescent Tab PO ONE (20:00)
[2022-12-14] MEDS: diphenhydrAMINE 25 MG Cap PO PRN (20:54)
[2022-12-14] MEDS: cefTRIAXone 2 GM in Sodium Chloride 0.9% 100 ML IV SCH (22:47)
[2022-12-14] MEDS: Azithromycin 500 MG in Sodium Chloride 0.9% 250 ML IV SCH (23:23)
[2022-12-15] MEDS: Albuterol/Ipratropium 3.0-0.5 MG/3 ML Neb Soln NEB SCH ×2 (01:15→07:12)
[2022-12-15] MEDS: Acetaminophen 325 MG Tab PO PRN (05:33)
[2022-12-15 05:36] VITALS: BP 131/88; PULSE 84
[2022-12-15] MEDS ORDERED: Potassium Bicarbonate/Cit Ac 20 MEQ Effervescent Tab PO ONE (07:00)
[2022-12-15] MEDS: Omeprazole 20 MG Cap.CR PO SCH (07:12)
[2022-12-15] MEDS: Enoxaparin 40 MG/0.4 ML Syringe SUBCUT SCH (07:12)
[2022-12-15] MEDS: Clopidogrel 75 MG Tab PO SCH (07:12)
[2022-12-15] MEDS: PROPAFENONE 225 MG PO SCH (07:12)
[2022-12-15] MEDS: Sodium Chloride 0.9% 10 ML Syringe FLUSH PRN (07:15)
[2022-12-15] MEDS ORDERED: Diltiazem 180 MG Cap.CD PO SCH (08:00)
[2022-12-15 09:05] LABS: ANION GAP 8.9 meq/L (7-15)
== END 2022-12-15 10:23 | disposition home or self-care (01) | DRG 871 ==
LOC: LL.ED 21:31 → LL.MS 23:10
PROVIDERS: ADMIT Hospitalist; ATTEND Hospitalist
DX: A41.89 Other specified sepsis (principal); J10.00 Influenza due to other identified influenza virus with unspecified type of pneumonia; J18.9 Pneumonia, unspecified organism; E86.0 Dehydration; C90.00 Multiple myeloma not having achieved remission; J44.0 Chronic obstructive pulmonary disease with (acute) lower respiratory infection; D84.9 Immunodeficiency, unspecified; I13.0 Hypertensive heart and chronic kidney disease with heart failure and stage 1 through stage 4 chronic kidney disease, or unspecified chronic kidney disease; I48.20 Chronic atrial fibrillation, unspecified; I50.32 Chronic diastolic (congestive) heart failure; Z94.84 Stem cells transplant status; Z20.822 Contact with and (suspected) exposure to COVID-19; E53.8 Deficiency of other specified B group vitamins; I16.0 Hypertensive urgency; D50.9 Iron deficiency anemia, unspecified; G43.909 Migraine, unspecified, not intractable, without status migrainosus; N18.2 Chronic kidney disease, stage 2 (mild); E78.2 Mixed hyperlipidemia; E83.42 Hypomagnesemia; I48.0 Paroxysmal atrial fibrillation; E88.09 Other disorders of plasma-protein metabolism, not elsewhere classified; M19.90 Unspecified osteoarthritis, unspecified site; Z98.41 Cataract extraction status, right eye; Z91.013 Allergy to seafood; Z88.0 Allergy status to penicillin; Z88.7 Allergy status to serum and vaccine; Z91.040 Latex allergy status; N18.30 Chronic kidney disease, stage 3 unspecified; Z88.8 Allergy status to other drugs, medicaments and biological substances; Z98.42 Cataract extraction status, left eye; Z87.19 Personal history of other diseases of the digestive system; Z86.79 Personal history of other diseases of the circulatory system; Z86.010 Personal history of colon polyps; E78.00 Pure hypercholesterolemia, unspecified; Z79.01 Long term (current) use of anticoagulants; Z79.899 Other long term (current) drug therapy
CPT/HCPCS: 0241U; 36415; 71046; 80048; 80053; 81001; 83605; 83735; 83880; 85025; 85027; 86140; 87040; 87070; 87205; 87804; 94640; 94761; 96361; 96365; 96375; 97161-GP; 99285-25; A9270-GY; J0456; J0696; J0780; J1200; J1650; J2550; J2930; J3490; J7030; J7050; J7120; J7620-GY

== ENCOUNTER 2023-09-22 09:29 | Day surgery (SDC) | payer MEDICARE, BC ==
[~2023-09-22 09:29] MED LIST changes: -Lactated Ringers 1,000 ML IV SCH; -Sodium Chloride 0.9% 10 ML Syringe FLUSH PRN
[2023-09-22] MEDS ORDERED: Sodium Chloride 0.9% 10 ML Syringe FLUSH PRN (09:30)
[2023-09-22] MEDS ORDERED: Lactated Ringers 1,000 ML IV SCH (09:30)
[2023-09-22 11:53] VITALS: PULSE 69
[2023-09-22 12:24] VITALS: BP 108/62
== END 2023-09-22 13:07 | disposition home or self-care (01) ==
LOC: LL.SDS 09:29
PROVIDERS: ATTEND Surgery
DX: K57.30 Diverticulosis of large intestine without perforation or abscess without bleeding (principal); I12.9 Hypertensive chronic kidney disease with stage 1 through stage 4 chronic kidney disease, or unspecified chronic kidney disease; N18.32 Chronic kidney disease, stage 3b; D47.3 Essential (hemorrhagic) thrombocythemia; J45.909 Unspecified asthma, uncomplicated; K21.9 Gastro-esophageal reflux disease without esophagitis; E78.5 Hyperlipidemia, unspecified; Z79.82 Long term (current) use of aspirin; Z79.899 Other long term (current) drug therapy; Z88.1 Allergy status to other antibiotic agents; Z91.040 Latex allergy status; Z88.7 Allergy status to serum and vaccine; Z91.048 Other nonmedicinal substance allergy status; Z91.013 Allergy to seafood; Z88.0 Allergy status to penicillin; Z88.6 Allergy status to analgesic agent
CPT/HCPCS: 00812; 88305; J2250; J2704; J7120

== ENCOUNTER 2025-04-18 09:41 | Day surgery (SDC) | payer MEDICARE, BC ==
[~2025-04-18 09:41] MED LIST changes: -Midazolam 1 MG/ML 2 ML SDV ONE; +Sodium Chloride 0.9% 10 ML Syringe FLUSH PRN
[2025-04-18] MEDS: Lactated Ringers 1,000 ML IV SCH (10:13)
[2025-04-18 13:13] VITALS: BP 125/77; PULSE 72
== END 2025-04-18 12:57 | disposition home or self-care (01) ==
LOC: LL.SDS 09:41
PROVIDERS: ATTEND Surgery
DX: K62.1 Rectal polyp (principal); K57.30 Diverticulosis of large intestine without perforation or abscess without bleeding; I10 Essential (primary) hypertension; I48.91 Unspecified atrial fibrillation; K21.9 Gastro-esophageal reflux disease without esophagitis; Z88.5 Allergy status to narcotic agent; Z91.013 Allergy to seafood; Z91.040 Latex allergy status; Z88.0 Allergy status to penicillin; Z79.82 Long term (current) use of aspirin; Z79.899 Other long term (current) drug therapy
CPT/HCPCS: 00811; 99100; J2704; J7120

== ENCOUNTER 2025-10-02 15:40 | Emergency (ER) | payer MEDICARE, BC ==
[2025-10-02 15:43] VITALS: BP 161/65; PULSE 81
[2025-10-02] MEDS ORDERED: Naloxone 0.4 MG/ML SDV IVPUSH PRN (16:09)
[2025-10-02] MEDS: Sodium Chloride 0.9% 10 ML Syringe FLUSH PRN (16:49)
[2025-10-02] MEDS: methylPREDNISolone Sodium Succinate 40 MG/1 ML SDV IVPUSH ONE (16:49)
[2025-10-02] MEDS: diphenhydrAMINE 50 MG/ML SDV IVPUSH ONE (16:49)
[2025-10-02] MEDS: Iopamidol 612 MG/ML 100 ML Bottle IVPUSH STA (18:25)
[2025-10-02] MEDS: Take Home: Ciprofloxacin HCl 500 MG, 6 Tab Pack PO ONE (20:04)
[2025-10-02] MEDS: Take Home: metroNIDAZOLE 500 MG Tab, 6 Tab Pack PO ONE (20:05)
[2025-10-02] MEDS: Take Home: Acetaminophen/HYDROcodone 325-5 MG, 5 Tab Pack PO ONE (20:07)
== END 2025-10-02 20:07 | disposition home or self-care (01) ==
LOC: LL.ED 15:40 → SUPCPDRO 15:40 → LL.ED 20:07
DX: K57.32 Diverticulitis of large intestine without perforation or abscess without bleeding (principal); I48.91 Unspecified atrial fibrillation; E78.00 Pure hypercholesterolemia, unspecified; I10 Essential (primary) hypertension; K21.9 Gastro-esophageal reflux disease without esophagitis; Z88.1 Allergy status to other antibiotic agents; Z88.0 Allergy status to penicillin; Z91.013 Allergy to seafood; Z88.7 Allergy status to serum and vaccine; Z91.040 Latex allergy status; Z88.8 Allergy status to other drugs, medicaments and biological substances; Z79.899 Other long term (current) drug therapy; Z91.041 Radiographic dye allergy status
CPT/HCPCS: 74177; 96361; 96374; 96375; 99284-25; A9270-GY; J1171; J1200; J2919; J7030; Q9967